=== PATIENT | female | born 1990 | race Caucasian/White ===

== ENCOUNTER 2023-03-23 18:01 | Inpatient (IN) | payer OTHER, SELFPAY ==
[2023-03-23 18:05] VITALS: BP 120/66; PULSE 84; RESP 20; TEMP 36.9; O2SAT 98; BMI 59.9
[2023-03-23 18:18] VITALS: BP 118/63; PULSE 85; RESP 20; TEMP 36.9; O2SAT 99
--- NOTE | 2023-03-23 18:23 | EX.ED.DYSGE1 ---
HPI History of Present Illness Chief Complaint: Cellulitis Detail of Chief Complaint: Abdomen cellulitis Informant: patient Onset/Context/Timing Onset: Yesterday Context: Sudden Onset Timing: Continuous Quality: Erythematous rash Location: Inferior umbilicus to the pubic symphysis Current Severity: Moderate Maximum Severity: Moderate Worsened by: Nothing Relieved by: Nothing Associated Symptoms Associated Symptoms: Subjective fever with chills Narrative Narrative: Is a 33-year-old female with no significant past medical history presents with cellulitis of the abdomen. This started yesterday. She complains of subjective fever with chills. She denies history medic fever, heart murmur, mitral valve prolapse and is not immune suppressed. She is on no dedication. She has no allergies to antibiotics. She denies nausea, vomiting or diarrhea. She denies dysuria, frequency, urgency or hematuria. She denies respiratory or cardiac symptoms. Prior similar symptoms: No Recent Illness/Hospitalization: No PFSH PFSH Medical History Morbid obesity due to excess calories Medical History no medical history no medical history Home Medications NK 03/23/23 [History Last Taken Unknown] Allergy/AdvReac Type Severity Reaction Status Date / Time No Known Allergies Allergy Verified 03/23/23 18:45 Family History no significant family his Surgical History H/O hernia repair Surgical History no surgical history no surgical history Social History household members: spouse and children Smoking Status: Never smoker substance use type: does not use ROS ROS ED Constitutional Constitutional ED: Reports chills, fever(s) and subjective; Denies sweats or weight loss Eyes Eyes: Denies blurry vision, change in vision or diplopia ENT ENT ED: Denies ear pain, rhinorrhea or sore throat Cardiovascular Cardiovascular: Denies chest pain, orthopnea, palpitations or racing heartbeat Respiratory/Chest Respiratory/Chest: Denies cough, dyspnea, dyspnea on exertion or orthopnea Gastrointestinal Gastrointestinal: Denies abdominal pain, constipation, diarrhea, melena, nausea or vomiting Genitourinary Genitourinary ED: Denies dysuria, hematuria or urinary frequency Musculoskeletal Musculoskeletal: Denies arthralgias or myalgias Integumentary Reports rash; Denies abscess Neurologic Neurologic: Denies headache(s), paresthesias or weakness Hematologic/Lymphatic Hematologic/Lymphatic: Reports systems reviewed and no addt'l complaints, except as documented Allergic/Immunologic Allergic/Immunologic ED: Denies mouth swelling or tongue swelling EXAM Physical Exam Const Vital Signs: 03/23/23 18:05 03/23/23 18:05 03/23/23 18:18 Temperature 98.5 F 98.5 F 98.5 F Temperature Source Temporal Temporal Temporal Pulse Rate 84 84 85 Respiratory Rate 20 H 20 H 20 H Blood Pressure 120/66 120/66 118/63 Blood Pressure Mean 84 84 81 Pulse Ox 98 98 99 Oxygen Delivery Method Room Air Room Air Room Air 03/23/23 18:28 03/23/23 19:14 03/23/23 19:14 Temperature 101.1 F H 101.1 F H Temperature Source Oral Oral Pulse Rate 84 90 Respiratory Rate 35 H 28 H Blood Pressure 128/69 H 130/70 H Blood Pressure Mean 88 90 Pulse Ox 99 100 100 Oxygen Delivery Method Room Air Room Air Room Air Positive well nourished, well developed and obese General Appearance ED: well developed and NAD; Negative for cyanotic or diaphoretic Nutritional Appearance: obese HEENT Reports moist mucous membranes HEENT Narrative: Head is normocephalic and atraumatic. Ears are normal. Nares are patent. Posterior pharynx is normal. Eyes PERRL and EOMs intact bilaterally General Eye ED: Negative for pale conjunctiva or scleral icterus Neck no lymphadenopathy, supple and no JVD Neck Narrative: There is no cervical lymphadenopathy. Chest Wall inspection of chest normal Resp normal respiratory effort and clear to auscultation bilaterally Cardio regular rate, regular rhythm, S1 normal heart sound, S2 normal heart sound and no murmurs GI non-distended and no masses; Negative for normal to inspection, nondistended, normoactive bowel sounds, non-tender or hepatosplenomegaly GI Narrative: There is tenderness over the indurated area. There is no crepitus appreciated. The rash is erythematous and is extensive. Rash was outlined with marker pen. Back/Spine no CVA tenderness Thoracic Spine / Upper Back: Negative for thoracic spinal tenderness Extremity normal to inspection General Extremety ED: Negative for tenderness Neuro oriented x3, CN's II-XII intact bilaterally and no sensory deficits noted Sensorium / Orientation: alert Motor Exam: strength 5/5 throughout Psych mental status grossly normal Skin Skin Narrative: LymphThis involving the inferior portion of the abdomen with induration, erythema gyrus. There is no inguinal lymphadenopathy. MDM MDM MDM Narrative Medical decision making narrative: Cellulitis of the abdominal wall. Patient may have sepsis. Sepsis work-up was undertaken. Since she has no antibiotic allergies she was started on Unasyn. Patient is tachypneic febrile with source. She has sepsis without endorgan dysfunction. We will contact hospitalist for admission. Lab Data Attestation: I reviewed the patient's lab results. Lab results narrative: White count is upper end of normal. There is slight shift. H&H is under markable. PT PTT are slightly did. Comprehensive metabolic panel is unremarkable. Lactate is normal. Labs: Laboratory Results - last 24 hr 03/23/23 03/23/23 18:35 19:45 WBC 10.1 RBC 4.66 Hgb 12.6 Hct 39.3 MCV 84.3 MCH 27.0 MCHC 32.1 RDW Std Deviation 44.0 H RDW Coeff of Ankita 14.4 Plt Count 180 MPV 10.0 Immature Gran % (Auto) 0.500 Neut % (Auto) 73.8 H Lymph % (Auto) 15.0 L [place] % (Auto) 9.4 Eos % (Auto) 0.7 Baso % (Auto) 0.6 Absolute Neuts (auto) 7.4 Absolute Lymphs (auto) 1.51 Nucleated RBC % 0 PT 15.2 H INR 1.2 APTT 39.3 H Sodium 138 Potassium 3.6 Chloride 107 Carbon Dioxide 27.0 Anion Gap 4 L BUN 10 Creatinine 0.86 Estim Creat Clear Calc 79.59 Est GFR (MDRD) Af Amer 98 Est GFR (MDRD) Non-Af 81 BUN/Creatinine Ratio 11.7 Glucose 100 Lactic Acid 1.0 Calcium 8.9 Total Bilirubin 0.70 AST 18 ALT 26 Alkaline Phosphatase 60 Total Protein 7.2 Albumin 3.1 L Globulin 4.1 Albumin/Globulin Ratio 0.8 L Urine Color Yellow Urine Clarity Clear Urine pH 7.0 Ur Specific [place] 1.015 Urine Protein 30 H Urine Glucose (UA) Normal Urine Ketones 15 H Urine Occult Blood 25 H Urine Nitrite Negative Urine Bilirubin Negative Urine Urobilinogen Normal Ur Leukocyte Esterase Negative Urine RBC 0 SEEN Urine WBC 0 SEEN Ur Squamous Epith Cells 0-5 SEEN Urine Bacteria RARE Urine Mucus 0 SEEN Urine Yeast RARE Treatment and Re-Evaluation :: Harmed by the nurse at 1915 the patient had shaking chills and complained of fever. Repeat temperature is 101.1. Discharge Plan Dx/Rx/DC Orders Clinical Impression: Abdominal wall cellulitis, Sepsis without acute organ dysfunction Disposition Disposition: Acute Care Hospital [facility]
[2023-03-23 18:28] VITALS: O2SAT 99
[2023-03-23 18:51] LABS: Absolute Lymphocyte Count 1.51 X10^3/uL (0.83-4.51); Absolute Neutrophil Count 7.4 X10^3/uL (2.0-7.7); Basophil# 0.06 X10^3/uL; Basophil% 0.6 % (0-1); Eosinophil# 0.07 X10^3/uL; Eosinophils% 0.7 % (0-5); Hematocrit 39.3 % (37-47); Hemoglobin 12.6 g/dL (12.0-15.0); Lymphocyte # 1.51 X10^3/ul (0.83-4.51); Mean Corp Hgb Conc 32.1 g/dL (32-36); Mean Corpuscular Volume 84.3 fL (81-99); Monocyte# 0.95 X10^3/uL; Monocyte% 9.4 % (0-10); NRBC Flagged by Analyzer 0 % (0-5); Neutrophil # 7.43 X10^3/uL (2.7-7.7); Neutrophil % 73.8 % (47-70); Platelet Count 180 K/mm3 (150-450); RBC Distribution Width CV 14.4 % (11.6-14.6); Red Blood Count 4.66 M/mm3 (4.2-5.4); White Blood Count 10.1 K/mm3 (4.4-11.0)
[2023-03-23] MEDS: 0.9% Normal Saline (1000mL) 1,000 ML 250 ML IV (18:58)
[2023-03-23] MEDS: Ampicillin/Sulbactam 3 GM in 0.9% Normal Saline (100mL MB+) 100 ML IV ×2 (18:58→23:41)
[2023-03-23 19:01] LABS: International Normalized Ratio 1.2; Prothrombin Time (Protime)PT. 15.2 SECONDS (11.7-14.9)
[2023-03-23 19:02] LABS: Partial Thromboplast Time 39.3 Seconds (24.1-36.2)
[2023-03-23] MEDS: Acetaminophen 325 MG Tablet 650 MG PO ×2 (19:12→23:40)
[2023-03-23 19:13] LABS: ALB/GLOB Ratio 0.8 RATIO (0.9-2.4); AST(SGOT) 18 U/L (15-37); Alanine Aminotransfer ALT/SGPT 26 U/L (13-56); Albumin, Serum 3.1 g/dL (3.2-5.0); Alkaline Phosphatase 60 U/L (45-117); Anion Gap 4 (5-15); BUN 10 mg/dL (7-18); BUN/Creat Ratio 11.7 RATIO (10-20); Calcium,Total 8.9 mg/dL (8.5-10.1); Chloride 107 mmol/L (98-107); Creatinine, Serum 0.86 mg/dL (0.55-1.02); EST Glomerular Filtration Rate 81 mL/min (>60); Est Glom Filt Rate - Afr Amer 98 mL/min (>60); Estimated Creatinine Clearance 79.59 ml/min; Globulin 4.1 g/dL (2.2-4.2); Glucose 100 mg/dL (74-106); Potassium 3.6 mmol/L (3.5-5.1); Protein, Total 7.2 g/dL (6.4-8.2); Sodium Level 138 mmol/L (136-145)
[2023-03-23 19:14] VITALS: BP 128/69; BP 130/70; PULSE 84; PULSE 90; RESP 28; RESP 35; TEMP 38.4; O2SAT 100
[2023-03-23 19:52] LABS: Color, Urine Yellow (Yellow); Glucose, Dipstick Normal (Normal); Ketone-Dipstick 15 mg/dl (Negative); Leukocyte Esterase-Dipstick Negative /ul (Negative); Mucous, Urine 0 SEEN /hpf (<or=2+); Nitrite-Dipstick Negative (Negative); Occult Blood-Urine 25 /ul (Negative); Protein-Dipstick 30 mg/dl (Negative); Red Blood Cells-Urine 0 SEEN /hpf (0-5); Specific Gravity, Urine 1.015 (1.002-1.030); Urine Bilirubin Dipstick Negative (Negative); Urine Clarity Clear (Clear); Urine Urobilinogen Normal (Normal); White Blood Cells 0 SEEN /hpf (0-5)
--- NOTE | 2023-03-23 20:04 | HP.PCM.HOS_ITS ---
HPI - General General Date of Admission: 03/23/23 Date of Service: 03/23/23 Chief Complaint: Lower abdomen redness HPI Narrative EMA TOWNSEND, is a 33 F with a significant history of morbid obesity who presents to the emergency department with erythema of her lower abdomen. Her symptoms started 2 days before presentation. Her symptoms started with chills and tenderness of the lower abdomen. Later on she developed erythema of the same site. She had a fever up with home temperature of about 101.6 Fahrenheit. She has anorexia. FORMERLY [facility], 1928–1983 Medical History delivery delivered Morbid obesity due to excess calories Medical History no medical history Home Medications NK 03/23/23 [History Last Taken Unknown] Allergy/AdvReac Type Severity Reaction Status Date / Time No Known Allergies Allergy Verified 03/23/23 18:45 Family History other other (Denies knowledge of family medical history) Surgical History H/O hernia repair Surgical History no surgical history Social History household members: spouse and children Smoking Status: Never smoker substance use type: does not use ROS ROS Narrative Pertinent positives and pertinent negatives as noted in HPI. All other systems were reviewed and are negative Vital Signs Vital Signs Vital Signs: 03/23/23 18:05 03/23/23 18:05 03/23/23 18:18 Temperature 98.5 F 98.5 F 98.5 F Temperature Source Temporal Temporal Temporal Pulse Rate 84 84 85 Respiratory Rate 20 H 20 H 20 H Blood Pressure 120/66 120/66 118/63 Blood Pressure Mean 84 84 81 Pulse Ox 98 98 99 Oxygen Delivery Method Room Air Room Air Room Air 03/23/23 18:28 03/23/23 19:14 03/23/23 19:14 Temperature 101.1 F H 101.1 F H Temperature Source Oral Oral Pulse Rate 84 90 Respiratory Rate 35 H 28 H Blood Pressure 128/69 H 130/70 H Blood Pressure Mean 88 90 Pulse Ox 99 100 100 Oxygen Delivery Method Room Air Room Air Room Air Weight Weight: 158.304 kg Body Mass Index (BMI) 59.9 Physical Exam Narrative Physical exam: General: Morbidly obese Head: Normocephalic, atraumatic, no tenderness Eyes: Vision is grossly intact. EOMI ENT, no trauma, moist mucous membranes, no rhinorrhea Neck: Nontender, No thyromegaly. CVS: Regular rate and rhythm. S1-S2 present. No murmur, gallop or rub. Respiratory : clear to auscultation bilaterally, chest wall nontender Abdomen: Erythema of lower abdomen with induration, tender lower abdomen. normal bowel sounds : Deferred Back: Nontender, no CVA tenderness, no midline spinal tenderness, deformities, step-offs Extremities: Nontender full range of motion, no trauma Skin: Normal color; except lower abdomen as described above. Neuro: Alert, oriented, cranial nerves II through XII grossly intact. Psychiatry: Normal mood. Normal affect. Not depressed. Not anxious. Results Lab / Micro Data Attestation: I reviewed the patient's lab results. 03/24/23 06:18 03/24/23 06:18 Labs: Laboratory Results - last 24 hr 03/23/23 18:35: WBC 10.1, RBC 4.66, Hgb 12.6, Hct 39.3, MCV 84.3, MCH 27.0, MCHC 32.1, RDW Std Deviation 44.0 H, RDW Coeff of Ankita 14.4, Plt Count 180, MPV 10.0, Immature Gran % (Auto) 0.500, Neut % (Auto) 73.8 H, Lymph % (Auto) 15.0 L, [place] % (Auto) 9.4, Eos % (Auto) 0.7, Baso % (Auto) 0.6, Absolute Neuts (auto) 7.4, Absolute Lymphs (auto) 1.51, Nucleated RBC % 0, PT 15.2 H, INR 1.2, APTT 39.3 H, Sodium 138, Potassium 3.6, Chloride 107, Carbon Dioxide 27.0, Anion Gap 4 L, BUN 10, Creatinine 0.86, Estim Creat Clear Calc 79.59, Est GFR (MDRD) Af Amer 98, Est GFR (MDRD) Non-Af 81, BUN/Creatinine Ratio 11.7, Glucose 100, Lactic Acid 1.0, Calcium 8.9, Total Bilirubin 0.70, AST 18, ALT 26, Alkaline Phosphatase 60, Total Protein 7.2, Albumin 3.1 L, Globulin 4.1, Albumin/Globulin Ratio 0.8 L Assessment & Plan Assessment/Plan (1) Abdominal wall cellulitis: (2) Morbid obesity due to excess calories: PLAN: Plan Abdominal wall cellulitis CBC showed normal white counts Started on Unasyn in the emergency department and continued. BMI: 58 3 kg/m?. Complicates care. Lifestyle modification recommended. Time spent in the patient's overall evaluation,decision-making process, review of diagnostic data, adjustment of management, discussion with other providers, nursing nursing and ancillary staff involved in patient's care documentation, 40 minutes. DVT prophylaxis Subcutaneous Lovenox ordered. Charges/Coding Visit Charges Inpatient E&M: 81895 Init Hosp L2
[2023-03-23 20:17] VITALS: BP 130/69; PULSE 84; PULSE 90; RESP 25; TEMP 37.7; O2SAT 97
[2023-03-23 20:37] LABS: Bacteria RARE /hpf (None Seen); Squamous Epithelial Cells - UA 0-5 SEEN /hpf (5-10); Yeast-Urine RARE /hpf (None Seen)
[2023-03-23 21:23] VITALS: BP 121/63; PULSE 83; RESP 18; TEMP 37.7; O2SAT 99
[2023-03-23 21:30] VITALS: BMI 58.3
[2023-03-23] MEDS: 0.9% Normal Saline (1000mL) 1,000 ML 100 ML IV (22:31)
[2023-03-23] MEDS: Enoxaparin 40 MG/0.4 ML Syringe SC (23:41)
[2023-03-23] MEDS: MELATONIN 3 MG TABLET PO (23:41)
[2023-03-24 03:03] VITALS: BP 122/71; PULSE 78; RESP 18; TEMP 37.7; O2SAT 97
[2023-03-24] MEDS: 0.9% Normal Saline (1000mL) 1,000 ML 100 ML IV ×3 (03:09→17:27)
[2023-03-24] MEDS: Acetaminophen 325 MG Tablet 650 MG PO (05:52)
[2023-03-24] MEDS: Ampicillin/Sulbactam 3 GM in 0.9% Normal Saline (100mL MB+) 100 ML IV ×4 (05:53→23:01)
[2023-03-24 05:55] VITALS: TEMP 37.4
[2023-03-24 07:04] LABS: Absolute Lymphocyte Count 1.89 X10^3/uL (0.83-4.51); Absolute Neutrophil Count 6.6 X10^3/uL (2.0-7.7); Basophil# 0.03 X10^3/uL; Basophil% 0.3 % (0-1); Eosinophil# 0.09 X10^3/uL; Eosinophils% 0.9 % (0-5); Hematocrit 35.6 % (37-47); Hemoglobin 11.3 g/dL (12.0-15.0); Lymphocyte # 1.89 X10^3/ul (0.83-4.51); Lymphocyte % 19.4 % (19-41); Mean Corp Hgb Conc 31.7 g/dL (32-36); Mean Corpuscular Hgb 26.8 pg (27.0-32.0); Mean Corpuscular Volume 84.4 fL (81-99); Mean Platelet Vol. 10.2 fl (6.2-12.0); Monocyte# 1.06 X10^3/uL; Monocyte% 10.9 % (0-10); NRBC Flagged by Analyzer 0 % (0-5); Neutrophil # 6.64 X10^3/uL (2.7-7.7); Neutrophil % 68.1 % (47-70); Platelet Count 175 K/mm3 (150-450); RBC Distribution Width CV 14.5 % (11.6-14.6); RBC Distribution Width SD 44.5 fl (35.1-43.9); Red Blood Count 4.22 M/mm3 (4.2-5.4); White Blood Count 9.8 K/mm3 (4.4-11.0)
[2023-03-24 07:38] LABS: Anion Gap 7 (5-15); BUN 10 mg/dL (7-18); BUN/Creat Ratio 15.7 RATIO (10-20); Calcium,Total 8.2 mg/dL (8.5-10.1); Chloride 109 mmol/L (98-107); Creatinine, Serum 0.64 mg/dL (0.55-1.02); EST Glomerular Filtration Rate 114 mL/min (>60); Est Glom Filt Rate - Afr Amer 137 mL/min (>60); Estimated Creatinine Clearance 106.95 ml/min; Glucose 83 mg/dL (74-106); Potassium 3.7 mmol/L (3.5-5.1); Sodium Level 138 mmol/L (136-145)
--- NOTE | 2023-03-24 07:53 | PCM.PN.HOSP ---
Reason for Visit Reason for Visit: Abdominal wall cellulitis Subjective Subjective Patient is a 33-year-old female who presented with warmth redness involving the lower abdomen as well as fever and chills. An assessment of anterior abdominal wall cellulitis made admitted to regular nursing floor for further management Objective Data Objective Data Vital Signs: Vital Signs Temp Pulse Resp BP Pulse Ox O2 Del Method 99.3 F H 78 18 122/71 H 97 Room Air 03/24/23 05:55 03/24/23 03:03 03/24/23 03:03 03/24/23 03:03 03/24/23 03:03 03/24/23 03:05 Oxygen Delivery Method Room Air Weight: 155 kg Body Mass Index (BMI) 58.3 Intake & Output: Intake and Output for Last 24 Hours 03/22/23 03/23/23 03/24/23 23:59 23:59 23:59 Intake Total 1032.83 / 1032.83 1317.33 / 1317.33 Balance 1032.83 / 1032.83 1317.33 / 1317.33 Lab / Micro Data 03/24/23 06:18 03/24/23 06:18 Labs: Laboratory Results - last 24 hr 03/23/23 18:35: WBC 10.1, RBC 4.66, Hgb 12.6, Hct 39.3, MCV 84.3, MCH 27.0, MCHC 32.1, RDW Std Deviation 44.0 H, RDW Coeff of Ankita 14.4, Plt Count 180, MPV 10.0, Immature Gran % (Auto) 0.500, Neut % (Auto) 73.8 H, Lymph % (Auto) 15.0 L, [place] % (Auto) 9.4, Eos % (Auto) 0.7, Baso % (Auto) 0.6, Absolute Neuts (auto) 7.4, Absolute Lymphs (auto) 1.51, Nucleated RBC % 0, PT 15.2 H, INR 1.2, APTT 39.3 H, Sodium 138, Potassium 3.6, Chloride 107, Carbon Dioxide 27.0, Anion Gap 4 L, BUN 10, Creatinine 0.86, Estim Creat Clear Calc 79.59, Est GFR (MDRD) Af Amer 98, Est GFR (MDRD) Non-Af 81, BUN/Creatinine Ratio 11.7, Glucose 100, Lactic Acid 1.0, Calcium 8.9, Total Bilirubin 0.70, AST 18, ALT 26, Alkaline Phosphatase 60, Total Protein 7.2, Albumin 3.1 L, Globulin 4.1, Albumin/Globulin Ratio 0.8 L 03/23/23 19:45: Urine Color Yellow, Urine Clarity Clear, Urine pH 7.0, Ur Specific [place] 1.015, Urine Protein 30 H, Urine Glucose (UA) Normal, Urine Ketones 15 H, Urine Occult Blood 25 H, Urine Nitrite Negative, Urine Bilirubin Negative, Urine Urobilinogen Normal, Ur Leukocyte Esterase Negative, Urine RBC 0 SEEN, Urine WBC 0 SEEN, Ur Squamous Epith Cells 0-5 SEEN, Urine Bacteria RARE, Urine Mucus 0 SEEN, Urine Yeast RARE 03/24/23 06:18: WBC 9.8, RBC 4.22, Hgb 11.3 L, Hct 35.6 L, MCV 84.4, MCH 26.8 L, MCHC 31.7 L, RDW Std Deviation 44.5 H, RDW Coeff of Ankita 14.5, Plt Count 175, MPV 10.2, Immature Gran % (Auto) 0.400, Neut % (Auto) 68.1, Lymph % (Auto) 19.4, [place] % (Auto) 10.9 H, Eos % (Auto) 0.9, Baso % (Auto) 0.3, Absolute Neuts (auto) 6.6, Absolute Lymphs (auto) 1.89, Nucleated RBC % 0, Sodium 138, Potassium 3.7, Chloride 109 H, Carbon Dioxide 22.0, Anion Gap 7, BUN 10, Creatinine 0.64, Estim Creat Clear Calc 106.95, Est GFR (MDRD) Af Amer 137, Est GFR (MDRD) Non-Af 114, BUN/Creatinine Ratio 15.7, Glucose 83, Calcium 8.2 L Physical Exam Narrative GENERAL: cooperative HEENT: Atraumatic; normocephalic EYES; Anicteric, Normal Conjunctiva NECK; supple, normal thyroid, RESPIRATORY: Diminished to auscultation CARDIOVASCULAR: Regular S1 S2, GI: soft, normoactive bowel sounds, : No Renal angle tenderness; EXTREMITIES: No edema, no clubbing, MUSCULOSKELETAL: no muscle wasting NEURO: Awake; no lateralizing signs. SKIN: An area of erythema and warmth involving the lower abdomen from the umbilicus to the pubic region with an open area below the umbilicus PSYCH; Flat affect Assessment & Plan Assessment/Plan (1) Abdominal wall cellulitis: (2) Morbid obesity due to excess calories: PLAN: Plan Patient is a 33-year-old female who presented with warmth redness involving the lower abdomen as well as fever and chills. An assessment of anterior abdominal wall cellulitis made admitted to regular nursing floor for further management 1. Anterior abdominal wall cellulitis ? Patient started on Unasyn, added vancomycin blood cultures sent 2. Class III obesity with BMI of 50.3 ? Complicating care 3. DVT prophylaxis ? SC Lovenox dose adjusted for weight Time spent in the patient's overall evaluation,decision-making process, review of diagnostic data, adjustment of management, discussion with other providers, nursing nursing and ancillary staff involved in patient's care documentation,50 Minutes Charges/Coding Visit Charges Inpatient E&M: 68076 [place] [address]
[2023-03-24 10:48] VITALS: BP 102/54; PULSE 75; RESP 18; TEMP 37.3; O2SAT 98
[2023-03-24] MEDS: Enoxaparin 40 MG/0.4 ML Syringe SC ×2 (11:26→23:01)
--- NOTE | 2023-03-24 11:43 | CASEMGMT ---
ELIECER GILLIS Assessment: Face to Face with pt for initial transition planning/care coordination assessment. RN ELIS introduced self and role at [facility], pt voices understanding and consents to assessment. Pt is A&O x4 and answers all questions appropriately at this time. Pt sitting up in bed eating lunch with and children at bedside. Care providers, pharmacy, and demographics verified/updated. Admitting Dx: cellulitis, abd wall PCP:Kristin Specialists: denies Preferred Pharmacy: [facility] Retail Insurance: [employer] Prescription Benefit: no LNOK: Beck Brooks, Living Arrangements: Pt lives with and 3 children in a two story home with 6 steps to enter. Pt reports she is I in ADL's and denies concerns at home. Transportation: Pt hires drivers for transportation. DME:Denies HHC/SNF: Pt denies hx of Pt states no concerns with going home at time of dc. Pt states no further concerns/needs. CM to follow. Advised pt to ask CM if any further question/concerns/needs arise, voices understanding. Pt Goal: Home Plan: Home
[2023-03-24 12:00] VITALS: O2SAT 93
[2023-03-24] MEDS: Vancomycin HCl 2,000 MG in 0.9% Normal Saline (500mL Bag) 500 ML 250 MG IV (13:12)
[2023-03-24] MEDS: Acetaminophen 500 MG Tablet 1000 MG PO ×2 (13:12→23:00)
[2023-03-24 16:37] VITALS: BP 106/50; PULSE 54; RESP 18; TEMP 37.6; O2SAT 94
--- NOTE | 2023-03-24 16:40 | PCM.RX.CS ---
Consult Antibiotic Management Pharmacy has been consulted to manage selected antiobiotic: Vancomycin Type of Intervention Type of Consult: New start Suspected Infection Suspected Infection: Skin/Soft tissue Labs Labs: Sodium 138 mmol/L (136-145) 03/24/23 06:18 Potassium 3.7 mmol/L (3.5-5.1) 03/24/23 06:18 Chloride 109 mmol/L (98-107) H 03/24/23 06:18 Carbon Dioxide 22.0 mmol/L (21.0-32.0) 03/24/23 06:18 Anion Gap 7 (5-15) 03/24/23 06:18 BUN 10 mg/dL (7-18) 03/24/23 06:18 Creatinine 0.64 mg/dL (0.55-1.02) 03/24/23 06:18 Est GFR (MDRD) Af Amer 137 mL/min (>60) 03/24/23 06:18 Est GFR (MDRD) Non-Af 114 mL/min (>60) 03/24/23 06:18 BUN/Creatinine Ratio 15.7 RATIO (10-20) 03/24/23 06:18 Glucose 83 mg/dL (74-106) 03/24/23 06:18 Goal Trough Goal Trough: 10-15 mcg/mL Pharmacy Plan for Drug Dosing Pharmacy Plan for Drug Dosing: NEW START IV VANCOMYCIN Consulting Physician: Dr. Gomez Indication: SSTI (cellulitis) Goal Trough: 10-15 SrCr: 0.64 CrCl: >100 ml/min Comments: patient had initial dose of vancomycin 2000mg IV x1 03/24 @1312 Vancomycin Dose: 1750mg IV Q12hr to start 03/25/23 @0100 Pending Level: 03/26/23 @0030, prior to 4th total dose vancomycin per protocol Pharmacy Service will continue to monitor and adjust dosing as required.
[2023-03-24 19:50] VITALS: BP 104/52; PULSE 73; RESP 18; TEMP 37.1; O2SAT 99
[2023-03-25] MEDS: Vancomycin HCl 1,750 MG in 0.9% Normal Saline (500mL Bag) 500 ML 250 MG IV ×2 (01:53→14:57)
[2023-03-25 02:01] VITALS: BP 106/57; PULSE 66; RESP 18; TEMP 36.7; O2SAT 99
[2023-03-25] MEDS: Ampicillin/Sulbactam 3 GM in 0.9% Normal Saline (100mL MB+) 100 ML IV ×4 (06:29→23:18)
[2023-03-25] MEDS: Acetaminophen 500 MG Tablet 1000 MG PO (06:29)
[2023-03-25] MEDS: 0.9% Normal Saline (1000mL) 1,000 ML 100 ML IV ×2 (06:32→23:19)
[2023-03-25 07:17] LABS: Absolute Lymphocyte Count 1.88 X10^3/uL (0.83-4.51); Absolute Neutrophil Count 4.1 X10^3/uL (2.0-7.7); Basophil# 0.03 X10^3/uL; Basophil% 0.4 % (0-1); Eosinophil# 0.18 X10^3/uL; Eosinophils% 2.6 % (0-5); Hematocrit 34.7 % (37-47); Hemoglobin 11.1 g/dL (12.0-15.0); Lymphocyte # 1.88 X10^3/ul (0.83-4.51); Lymphocyte % 27.6 % (19-41); Mean Corpuscular Hgb 27.3 pg (27.0-32.0); Mean Corpuscular Volume 85.3 fL (81-99); Mean Platelet Vol. 10.2 fl (6.2-12.0); Monocyte# 0.67 X10^3/uL; Monocyte% 9.8 % (0-10); NRBC Flagged by Analyzer 0 % (0-5); Neutrophil # 4.05 X10^3/uL (2.7-7.7); Neutrophil % 59.5 % (47-70); Platelet Count 189 K/mm3 (150-450); RBC Distribution Width CV 14.6 % (11.6-14.6); RBC Distribution Width SD 45.2 fl (35.1-43.9); Red Blood Count 4.07 M/mm3 (4.2-5.4); White Blood Count 6.8 K/mm3 (4.4-11.0)
[2023-03-25 07:38] LABS: Anion Gap 5 (5-15); BUN 10 mg/dL (7-18); BUN/Creat Ratio 18.9 RATIO (10-20); Calcium,Total 8.1 mg/dL (8.5-10.1); Chloride 113 mmol/L (98-107); Creatinine, Serum 0.53 mg/dL (0.55-1.02); EST Glomerular Filtration Rate 141 mL/min (>60); Est Glom Filt Rate - Afr Amer 170 mL/min (>60); Estimated Creatinine Clearance 129.15 ml/min; Glucose 89 mg/dL (74-106); Magnesium 2.2 mg/dL (1.6-2.6); Phosphorus 2.3 mg/dL (2.5-4.9); Potassium 3.7 mmol/L (3.5-5.1); Sodium Level 141 mmol/L (136-145)
[2023-03-25 07:41] VITALS: O2SAT 96
--- NOTE | 2023-03-25 07:45 | PCM.PN.HOSP ---
Reason for Visit Reason for Visit: Diagnoses Morbid (severe) obesity due to excess calories (03/23/23) Cellulitis of abdominal wall (03/23/23) Subjective Subjective Patient admitted some improvement in the area of induration. Objective Data Objective Data Vital Signs: Vital Signs Temp Pulse Resp BP Pulse Ox O2 Del Method 98.1 F 66 18 106/57 L 99 Room Air 03/25/23 02:01 03/25/23 02:01 03/25/23 02:01 03/25/23 02:01 03/25/23 02:01 03/25/23 02:01 Oxygen Delivery Method Room Air Weight: 155 kg Body Mass Index (BMI) 58.3 Intake & Output: Intake and Output for Last 24 Hours 03/23/23 03/24/23 03/25/23 23:59 23:59 23:59 Intake Total 1032.83 / 1032.83 3241.33 / 3241.33 1637 / 1637 Balance 1032.83 / 1032.83 3241.33 / 3241.33 1637 / 1637 Lab / Micro Data 03/25/23 06:24 03/25/23 06:24 Labs: Laboratory Results - last 24 hr 03/25/23 06:24: WBC 6.8, RBC 4.07 L, Hgb 11.1 L, Hct 34.7 L, MCV 85.3, MCH 27.3, MCHC 32.0, RDW Std Deviation 45.2 H, RDW Coeff of Ankita 14.6, Plt Count 189, MPV 10.2, Immature Gran % (Auto) 0.100, Neut % (Auto) 59.5, Lymph % (Auto) 27.6, [place] % (Auto) 9.8, Eos % (Auto) 2.6, Baso % (Auto) 0.4, Absolute Neuts (auto) 4.1, Absolute Lymphs (auto) 1.88, Nucleated RBC % 0, Sodium 141, Potassium 3.7, Chloride 113 H, Carbon Dioxide 23.0, Anion Gap 5, BUN 10, Creatinine 0.53 L, Estim Creat Clear Calc 129.15, Est GFR (MDRD) Af Amer 170, Est GFR (MDRD) Non-Af 141, BUN/Creatinine Ratio 18.9, Glucose 89, Calcium 8.1 L, Phosphorus 2.3 L, Magnesium 2.2 Physical Exam Narrative GENERAL: cooperative HEENT: Atraumatic; normocephalic EYES; Anicteric, Normal Conjunctiva NECK; supple, normal thyroid, RESPIRATORY: Diminished to auscultation CARDIOVASCULAR: Regular S1 S2, GI: soft, normoactive bowel sounds, : No Renal angle tenderness; EXTREMITIES: No edema, no clubbing, MUSCULOSKELETAL: no muscle wasting NEURO: Awake; no lateralizing signs. SKIN: An area of erythema and warmth involving the lower abdomen from the umbilicus to the pubic region with an open area below the umbilicus PSYCH; Flat affect Assessment & Plan Assessment/Plan (1) Abdominal wall cellulitis: (2) Morbid obesity due to excess calories: PLAN: Plan Patient is a 33-year-old female who presented with warmth redness involving the lower abdomen as well as fever and chills. An assessment of anterior abdominal wall cellulitis made admitted to regular nursing floor for further management 1. Anterior abdominal wall cellulitis ? Patient started on Unasyn, added vancomycin blood cultures sent ? 03/25/2023 slow response to therapy 2. Class III obesity with BMI of 50.3 ? Complicating care 3. DVT prophylaxis ? SC Lovenox dose adjusted for weight Time spent in the patient's overall evaluation,decision-making process, review of diagnostic data, adjustment of management, discussion with other providers, nursing nursing and ancillary staff involved in patient's care documentation, 35 minutes Charges/Coding Visit Charges Inpatient E&M: 88594 Subs Hosp L2
[2023-03-25] MEDS: Enoxaparin 40 MG/0.4 ML Syringe SC (11:19)
[2023-03-25 15:45] VITALS: BP 124/66; PULSE 73; RESP 16; TEMP 37.1; O2SAT 99
[2023-03-25 20:04] VITALS: BP 132/80; PULSE 74; RESP 18; TEMP 36.9; O2SAT 99
--- NOTE | 2023-03-26 01:27 | PCM.RX.CS ---
Consult Antibiotic Management Pharmacy has been consulted to manage selected antiobiotic: Vancomycin Type of Intervention Type of Consult: Follow-up Suspected Infection Suspected Infection: Skin/Soft tissue Labs Labs: Sodium 141 mmol/L (136-145) 03/25/23 06:24 Potassium 3.7 mmol/L (3.5-5.1) 03/25/23 06:24 Chloride 113 mmol/L (98-107) H 03/25/23 06:24 Carbon Dioxide 23.0 mmol/L (21.0-32.0) 03/25/23 06:24 Anion Gap 5 (5-15) 03/25/23 06:24 BUN 10 mg/dL (7-18) 03/25/23 06:24 Creatinine 0.53 mg/dL (0.55-1.02) L 03/25/23 06:24 Est GFR (MDRD) Af Amer 170 mL/min (>60) 03/25/23 06:24 Est GFR (MDRD) Non-Af 141 mL/min (>60) 03/25/23 06:24 BUN/Creatinine Ratio 18.9 RATIO (10-20) 03/25/23 06:24 Glucose 89 mg/dL (74-106) 03/25/23 06:24 Vancomycin Trough 10.0 ug/mL (5.0-15.0) 03/26/23 00:37 Dosing Weight Weight used for dosin kg Estimated Creatinine Clearance Estimated Creatinine Clearance: >100 Goal Trough Goal Trough: 10-15 mcg/mL Pharmacy Plan for Drug Dosing Pharmacy Plan for Drug Dosing: Vancomycin trough level of 10.0 was within target range of 10-15. Will continue dosing at 1750mg q12h, and re-draw a trough level in two days. Pharmacy Service will continue to monitor and adjust dosing as required. Follow-Up Labs Follow-Up Labs: Trough: Vancomycin Date/Time Labs Ordered Labs to be done on [date and time ordered]: 03/28/23 @0030
[2023-03-26] MEDS: Vancomycin HCl 1,750 MG in 0.9% Normal Saline (500mL Bag) 500 ML 250 MG IV (01:48)
[2023-03-26 01:53] VITALS: BP 123/74; PULSE 66; RESP 18; TEMP 37; O2SAT 98
[2023-03-26] MEDS: Vancomycin Trough/Random Due 1 LAB MC (02:48)
[2023-03-26] MEDS: Ampicillin/Sulbactam 3 GM in 0.9% Normal Saline (100mL MB+) 100 ML IV ×2 (05:40→11:59)
[2023-03-26 06:51] LABS: Absolute Lymphocyte Count 2.02 X10^3/uL (0.83-4.51); Absolute Neutrophil Count 3.9 X10^3/uL (2.0-7.7); Basophil# 0.04 X10^3/uL; Basophil% 0.6 % (0-1); Eosinophil# 0.25 X10^3/uL; Eosinophils% 3.7 % (0-5); Hemoglobin 11.1 g/dL (12.0-15.0); Lymphocyte # 2.02 X10^3/ul (0.83-4.51); Lymphocyte % 29.7 % (19-41); Mean Corp Hgb Conc 31.7 g/dL (32-36); Mean Corpuscular Hgb 27.3 pg (27.0-32.0); Mean Platelet Vol. 9.5 fl (6.2-12.0); Monocyte# 0.61 X10^3/uL; NRBC Flagged by Analyzer 0 % (0-5); Neutrophil # 3.86 X10^3/uL (2.7-7.7); Neutrophil % 56.6 % (47-70); Platelet Count 211 K/mm3 (150-450); RBC Distribution Width CV 14.3 % (11.6-14.6); Red Blood Count 4.07 M/mm3 (4.2-5.4); White Blood Count 6.8 K/mm3 (4.4-11.0)
[2023-03-26 07:18] LABS: Anion Gap 4 (5-15); BUN 11 mg/dL (7-18); BUN/Creat Ratio 16.1 RATIO (10-20); Calcium,Total 8.5 mg/dL (8.5-10.1); Chloride 113 mmol/L (98-107); Creatinine, Serum 0.68 mg/dL (0.55-1.02); EST Glomerular Filtration Rate 104 mL/min (>60); Est Glom Filt Rate - Afr Amer 126 mL/min (>60); Estimated Creatinine Clearance 100.66 ml/min; Glucose 101 mg/dL (74-106); Potassium 4.7 mmol/L (3.5-5.1); Sodium Level 141 mmol/L (136-145)
[2023-03-26 08:13] VITALS: O2SAT 95
[2023-03-26 08:37] VITALS: BP 113/61; PULSE 64; RESP 16; TEMP 36.7; O2SAT 97
--- NOTE | 2023-03-26 09:08 | CT_ITS ---
STUDY: CT ABDOMEN AND PELVIS WITH CONTRAST REASON FOR EXAM: Female, 33 years old. Abdominal wall abscess RADIATION DOSAGE (If Supplied By Facility): CTDIvol = ( 45.59 ) mGy, DLP = ( 2184.48 ) mGycm TECHNIQUE: Oral and amp; IV Gastrografin and amp; 100mL Isovue-300 was administered. Transaxial images were obtained from the dome of the diaphragm to the symphysis pubis. Multiplanar coronal and sagittal images were reformatted. Individualized Dose Optimization Techniques Were Used For This CT. COMPARISON: No relevant prior comparison study available FINDINGS: The visualized lung bases are unremarkable. The visualized portions of the heart are within normal limits. No focal lesion is identified in the liver. Contracted gallbladder without evidence of gallstones. Normal spleen. Normal pancreas. Normal bilateral adrenal glands. Essentially unremarkable kidneys. Anteriorly malrotated right kidney. Normal visualized stomach. Normal in caliber small bowel loops. No evidence of acute diverticulitis. The appendix is visualized and appears normal. Normal abdominal aorta. No retroperitoneal adenopathy. Normal urinary bladder. No pelvic mass. Ventral hernia containing fat. Thickening of the anterior abdominal wall about the level of the umbilicus could be due to umbilical hernia repair. No abnormal fluid collection. No drainable abscess is seen. No demonstrated acute osseous changes. CT/Abdomen/Pelvis WITH Contrast IMPRESSION: 1. Thickening of the anterior abdominal wall above the level of the umbilicus could be due to umbilical hernia repair. Inflammatory or infectious process is possible. No evidence of drainable abscess. 2. Ventral hernia containing fat. 3. Otherwise no focal acute inflammatory process. Electronically Signed: Jose Raul Martins MD at 12:06 EDT ,
--- NOTE | 2023-03-26 10:55 | PCM.PN.HOSP ---
Reason for Visit Reason for Visit: Diagnoses Morbid (severe) obesity due to excess calories (03/23/23) Cellulitis of abdominal wall (03/23/23) Subjective Subjective Patient found to a significant induration involving the lower anterior abdominal wall. Ordered CT to r/o abscess Objective Data Objective Data Vital Signs: Vital Signs Temp Pulse Resp BP Pulse Ox O2 Del Method 98.0 F 64 16 113/61 97 Room Air 03/26/23 08:37 03/26/23 08:37 03/26/23 08:37 03/26/23 08:37 03/26/23 08:37 03/26/23 08:37 Oxygen Delivery Method Room Air Weight: 155 kg Body Mass Index (BMI) 58.3 Intake & Output: Intake and Output for Last 24 Hours 03/24/23 03/25/23 03/26/23 23:59 23:59 23:59 Intake Total 3241.33 / 3241.33 4508 / 4508 1657.33 / 1657.33 Balance 3241.33 / 3241.33 4508 / 4508 1657.33 / 1657.33 Lab / Micro Data 03/26/23 06:30 03/26/23 06:30 Labs: Laboratory Results - last 24 hr 03/26/23 00:37: Vancomycin Trough 10.0 03/26/23 06:30: WBC 6.8, RBC 4.07 L, Hgb 11.1 L, Hct 35.0 L, MCV 86.0, MCH 27.3, MCHC 31.7 L, RDW Std Deviation 45.0 H, RDW Coeff of Ankita 14.3, Plt Count 211, MPV 9.5, Immature Gran % (Auto) 0.400, Neut % (Auto) 56.6, Lymph % (Auto) 29.7, [place] % (Auto) 9.0, Eos % (Auto) 3.7, Baso % (Auto) 0.6, Absolute Neuts (auto) 3.9, Absolute Lymphs (auto) 2.02, Nucleated RBC % 0, Sodium 141, Potassium 4.7, Chloride 113 H, Carbon Dioxide 24.0, Anion Gap 4 L, BUN 11, Creatinine 0.68, Estim Creat Clear Calc 100.66, Est GFR (MDRD) Af Amer 126, Est GFR (MDRD) Non-Af 104, BUN/Creatinine Ratio 16.1, Glucose 101, Calcium 8.5 Micro: Microbiology 03/23/23 18:46 Blood Culture (Wb) - Venous Blood Culture - Preliminary No growth in 48 hours. 03/23/23 18:35 Blood Culture (Wb) - Venous Blood Culture - Preliminary No growth in 48 hours. Physical Exam Narrative GENERAL: cooperative HEENT: Atraumatic; normocephalic EYES; Anicteric, Normal Conjunctiva NECK; supple, normal thyroid, RESPIRATORY: Diminished to auscultation CARDIOVASCULAR: Regular S1 S2, GI: soft, normoactive bowel sounds, : No Renal angle tenderness; EXTREMITIES: No edema, no clubbing, MUSCULOSKELETAL: no muscle wasting NEURO: Awake; no lateralizing signs. SKIN: An area of erythema and warmth involving the lower abdomen from the umbilicus to the pubic region with an open area below the umbilicus PSYCH; Flat affect Assessment & Plan Assessment/Plan (1) Abdominal wall cellulitis: (2) Morbid obesity due to excess calories: PLAN: Plan Patient is a 33-year-old female who presented with warmth redness involving the lower abdomen as well as fever and chills. An assessment of anterior abdominal wall cellulitis made admitted to regular nursing floor for further management 1. Anterior abdominal wall cellulitis ? Patient started on Unasyn, added vancomycin blood cultures sent ? 03/25/2023 slow response to therapy - 03/26/2023; Patient found to a significant induration involving the lower anterior abdominal wall. Ordered CT to r/o abscess 2. Class III obesity with BMI of 50.3 ? Complicating care 3. DVT prophylaxis ? SC Lovenox dose adjusted for weight Time spent in the patient's overall evaluation,decision-making process, review of diagnostic data, adjustment of management, discussion with other providers, nursing nursing and ancillary staff involved in patient's care documentation, 35 minutes Charges/Coding Visit Charges Inpatient E&M: 27052 Subs Hosp L2
[2023-03-26] MEDS: 0.9% Normal Saline (1000mL) 1,000 ML 100 ML IV (11:59)
--- NOTE | 2023-03-26 12:36 | DS.PCM_ITS ---
Providers Date of Admission: 03/23/23 Date of Discharge: 03/26/23 Primary Care Physician: Dr. Jeff Foster, Reason For Visit: CELLULITIS; ABDOMINAL WALL Diagnosis Discharge Diagnosis (1) Abdominal wall cellulitis: Status: Acute Code(s): L03.311 - Cellulitis of abdominal wall (2) Morbid obesity due to excess calories: Status: Acute Code(s): E66.01 - Morbid (severe) obesity due to excess calories Plan Patient is a 33-year-old female who presented with warmth redness involving the lower abdomen as well as fever and chills. An assessment of anterior abdominal wall cellulitis made admitted to regular nursing floor for further management 1. Anterior abdominal wall cellulitis ? Patient started on Unasyn, added vancomycin blood cultures sent ? 03/25/2023 slow response to therapy - 03/26/2023; Patient found to a significant induration involving the lower anterior abdominal wall. Ordered CT to r/o abscess -CT demonstrated thickening of the anterior abdominal wall above the level of the umbilicus could be due to umbilical hernia repair. Inflammatory or infectious process is possible. No evidence of drainable abscess. Patient was discharged home with a 10-day course of cefdinir and instructed to follow-up with primary care physician for further management 2. Class III obesity with BMI of 50.3 ? Complicating care 3. DVT prophylaxis ? SC Lovenox dose adjusted for weight Time spent in the patient's overall evaluation,decision-making process, review of diagnostic data, adjustment of management, discussion with other providers, nursing nursing and ancillary staff involved in patient's care documentation, 35 minutes Medications at Discharge Home Medications cefdinir 300 mg capsule 300 mg PO BID #20 caps 03/26/23 Hospital Course Summary of Care Provided Minutes Spent on Discharge: 35 Physical Exam Narrative GENERAL: cooperative HEENT: Atraumatic; normocephalic EYES; Anicteric, Normal Conjunctiva NECK; supple, normal thyroid, RESPIRATORY: Diminished to auscultation CARDIOVASCULAR: Regular S1 S2, GI: soft, normoactive bowel sounds, : No Renal angle tenderness; EXTREMITIES: No edema, no clubbing, MUSCULOSKELETAL: no muscle wasting NEURO: Awake; no lateralizing signs. SKIN: An area of erythema and warmth involving the lower abdomen PSYCH; Flat affect Weight / BMI Weight Weight: 155 kg Body Mass Index (BMI) 58.3 ABG / Lab / Microbiology Data 03/26/23 06:30 03/26/23 06:30 Laboratory: Laboratory Results - last 24 hr 03/26/23 00:37: Vancomycin Trough 10.0 03/26/23 06:30: WBC 6.8, RBC 4.07 L, Hgb 11.1 L, Hct 35.0 L, MCV 86.0, MCH 27.3, MCHC 31.7 L, RDW Std Deviation 45.0 H, RDW Coeff of Ankita 14.3, Plt Count 211, MPV 9.5, Immature Gran % (Auto) 0.400, Neut % (Auto) 56.6, Lymph % (Auto) 29.7, [place] % (Auto) 9.0, Eos % (Auto) 3.7, Baso % (Auto) 0.6, Absolute Neuts (auto) 3.9, Absolute Lymphs (auto) 2.02, Nucleated RBC % 0, Sodium 141, Potassium 4.7, Chloride 113 H, Carbon Dioxide 24.0, Anion Gap 4 L, BUN 11, Creatinine 0.68, Estim Creat Clear Calc 100.66, Est GFR (MDRD) Af Amer 126, Est GFR (MDRD) Non-Af 104, BUN/Creatinine Ratio 16.1, Glucose 101, Calcium 8.5 Microbiology: Microbiology 03/23/23 18:46 Blood Culture (Wb) - Venous Blood Culture - Preliminary No growth in 48 hours. 03/23/23 18:35 Blood Culture (Wb) - Venous Blood Culture - Preliminary No growth in 48 hours. Radiography Diagnostic Testing: Radiology Impression Abdomen/Pelvis CT 03/26/23 09:08 IMPRESSION: 1. Thickening of the anterior abdominal wall above the level of the umbilicus could be due to umbilical hernia repair. Inflammatory or infectious process is possible. No evidence of drainable abscess. 2. Ventral hernia containing fat. 3. Otherwise no focal acute inflammatory process. Electronically Signed: Jose Raul Martins MD at 12:06 EDT , D/C Instructions Discharge Diet: No restrictions Discharge Activity: Return to Normal Activity Call your doctor if you observe: Fever of 101 or Higher, Shortness of breath, Fainting spells and Chest pain Meaningful Use Info Meaningful Use Diagnoses (Choose all that apply): None applicable Discharge Plan Admission Admit Date/Time: 03/23/23 19:53 Attending Provider: Beck Gomez Primary Care Provider: Jeff Foster Consulting Providers: Philip De La Cruz Discharge Orders/Prescriptions Prescriptions: New cefdinir 300 mg capsule 300 mg PO BID Qty: 20 0RF Referrals / Follow Up: Jeff Foster DO [Primary Care Provider] - 03/27/23 Disposition Disposition (needs filled in before D/C Order can be placed): Home, Self Care Charges/Coding Visit Charges Inpatient E&M: 97711 Disch Hosp >30min
[2023-03-26 13:10] VITALS: BP 116/64; PULSE 70; RESP 17; TEMP 36.8; O2SAT 98
--- NOTE | 2023-03-26 13:48 | PHA.DC_ITS ---
Pharmacy [facility] has performed discharge medication reconciliation and counseling for this patient. The patient's discharge medication list was reviewed for discrepancies and discrepancies were resolved. The patient was counseled on the following discharge medications and changes in medications for homegoing were reviewed. The Reason for Use, instructions for use, and potential side effects were reviewed for all new medications. The patient's questions regarding all of their medications were answered. 1. Cefdinir 300 mg PO Q12H x 10 days The patient was able to verbally demonstrate an understanding of their discharge medications. Medications at Discharge Home Medications cefdinir 300 mg capsule 300 mg PO BID #20 caps 03/26/23
== END 2023-03-26 14:03 | disposition home or self-care (01) | DRG 603 ==
LOC: ED 19:25 → MS3 20:23
PROVIDERS: Admitting Provider Hospitalist; Emergency Provider Emergency Medicine; PCP Family Medicine; Visit Provider Internal Medicine
DX: L03.311 Cellulitis of abdominal wall (principal); Z68.43 Body mass index [BMI] 50.0-59.9, adult; E66.01 Morbid (severe) obesity due to excess calories
CPT/HCPCS: 36415; 74177; 80048; 80053; 80202; 81001; 83605; 83735; 84100; 85025; 85610; 85730; 87040; 99285; J7030; J7040; Q9967; A4216; J0295

== ENCOUNTER 2025-06-07 01:46 | Emergency (ER) | payer OTHER, SELFPAY ==
[2025-06-07 01:48] VITALS: BP 135/93; PULSE 65; RESP 16; TEMP 36.9; O2SAT 98; BMI 53.8
[2025-06-07 02:18] LABS: Mucous, Urine 0 SEEN /hpf (<or=2+); Squamous Epithelial Cells - UA 0 SEEN /hpf (5-10)
[2025-06-07 02:21] LABS: Hematocrit 38.7 % (37-47); Hemoglobin 13.3 g/dL (12.0-15.0); Immature Granulocytes Count 0.040 X10^3/uL (0.0-0.0); Mean Corp Hgb Conc 34.4 g/dL (32-36); Mean Corpuscular Volume 82.3 fL (81-99); Mean Platelet Vol. 9.8 fl (6.2-12.0); NRBC Flagged by Analyzer 0 % (0-5); Platelet Count 252 K/mm3 (150-450); RBC Distribution Width CV 13.7 % (11.6-14.6); RBC Distribution Width SD 40.7 fl (35.1-43.9); Red Blood Count 4.70 M/mm3 (4.2-5.4); White Blood Count 13.7 K/mm3 (4.4-11.0)
[2025-06-07 02:29] LABS: Color, Urine Yellow (Yellow); Glucose, Dipstick Normal (Normal); Ketone-Dipstick 5 mg/dl (Negative); Leukocyte Esterase-Dipstick Negative /ul (Negative); Nitrite-Dipstick Negative (Negative); Occult Blood-Urine Negative /ul (Negative); Protein-Dipstick 15 mg/dl (Negative); Specific Gravity, Urine 1.010 (1.002-1.030); Urine Bilirubin Dipstick Negative (Negative)
--- OUTSIDE RECORDS SUMMARY | 2025-06-07 02:34 | XMS RPT_ITS | CCD ---
Author Organization [facility] Care Team Providers Care Recruiter Manager Name Role Phone NANCIE BRUSH Unavailable Unavailable NANCIE BRUSH Unavailable Unavailable PALACIOS, MARITZA Unavailable Unavailable PALACIOS, MARITZA Unavailable Unavailable PHILIP, MARITZA Unavailable Unavailable JEFF FOSTER Unavailable Unavailable PROVIDER, UNKNOWN Unavailable Unavailable Dr. Jeff Foster Primary Care Provider [phone] Dr. Kurtis Alexander Emergency Provider Dr. Philip De La Cruz Admit Provider [phone] Philip De La Cruz Attending Provider Dr. Philip De La Cruz Other Provider [phone] Kan Gomez Other Provider Unavailable Dr. Kan Gomez Attending Provider Unavailable Unavailable Primary Care Provider Unavailadilson mckeon Unavailable Primary Care Provider UnavailKAN Kothari Attending Unavailable KAN OLIVER Referring Unavailable ALISSA FISHER Referring Unavailable Medications Current Medications Medication Drug Class(es) Dates Sig (Normalized) Sig (Original) calcium carbonate/multivitamin (MULTIVITAMIN-CALCIUM CARB ORAL) (17 sources) calcium carbonate/multivitamin (MULTIVITAMIN-CALCIUM CARB ORAL) Take by mouth. Active calcium carbonat e/multivitamin (MULTIVITAMIN-CALCIUM CARB ORAL) Take by mouth. 0 Active Comment on above: Take by mouth. cefdinir 300 mg oral capsule (18 sources) Cephalosporin Antibacterial Start: 023 cefdinir (OMNICEF) 300 mg capsule Take by mouth. 03/26/2023 Active Comment on above: Take by mouth. ergocalciferol 1.25 mg oral capsule (8 sources) Provitamin D2 Compound Start: 024 take 1 capsule by mouth every week ergocalciferol 50,000 unit capsule (VITAMIN D2, DRISDCARLITOS) Indications: Vitamin D deficiency Take 1 capsule by mouth one time a week. 8 capsule 02/12/2024 Active evening primrose oil (EVENING PRIMROSE ORAL) (17 sources) evening primrose oil (EVENING PRIMROSE ORAL) Take by mouth. Active evening primrose oil (EVENING PRIMROSE ORAL) Take by mouth. 0 Active Comment on above: Take by mouth. Completed/Discontinued Medications Medication Drug Class(es) Dates Sig (Normalized) Sig (Original) enteric contrast (will be provided with radiology test) (1 source) Start: 09-13-2023 End: 09-13-2023 take 1 dose by mouth once, then take 1 dose by mouth once enteric contrast (will be provided with radiology test) Take 1 Each by mouth one time only for [address] ABD/PEL WO Routine order Administer, As Directed One Time Only, via Oral, Rectal, both Oral and Rectal, Enteric Tube, Stoma or Indwelling Catheter, Enteric Contrast as designated per enteric contrast guidelines 1 Each 0 09/13/2023 09/13/2023 Comment on above: Take 1 Each by mouth one time only for [address] ABD/PEL WO Routine order Administer, As Directed One Time Only, via Oral, Rectal, both Oral and Rectal, Enteric Tube, Stoma or Indwelling Catheter, Enteric Contrast as designated per enteric contrast guidelines Problems Active Problems Problem Classification Problem Date Documented Da te Episodic/Chronic Abdominal hernia (8 sources) Incisional hernia; Translations: [Incisional hernia without obstruction or gangrene] Onset: 02-16-2025 09-13-2023 Episodic Administrative/social admission (3 sources) Patient encounter status; Translations: [Dietary counseling and surveillance] Onset: 02-16-2025 02-07-2024 Episodic Nutritional deficiencies (1 source) Vitamin D deficiency; Translations: [Vitamin D deficiency, unspecified] 02-12-2024 Chronic Other nutritional; endocrine; and metabolic disorders (20 sources) Morbid obesity; Translations: [Morbid (severe) obesity due to excess calories] Onset: 09-28-2023 03-23-2023 Chronic Other nutritional; endocrine; and metabolic disorders (3 sources) Morbid (severe) obesity due to excess calories; Translations: [Morbid obesity] Onset: 09-28-2023 03-23-2023 Chronic Other nutritional; endocrine; and metabolic disorders (1 source) Excess panniculus of abdomen; Translations: [Localized adiposity] 01-03-2024 Chronic Other nutritional; endocrine; and metabolic disorders (3 sources) Severe obesity; Translations: [Morbid (severe) obesity due to excess calories] 02-07-2024 Chronic Past or Other Problems Problem Classification Problem Date Documented Da te Episodic/Chronic Septicemia (except in labor) (20 sources) Sepsis without acute organ dysfunction; Translations: [Sepsis, unspecified organism] Onset: 09-28-2023 03-23-2023 Episodic Skin and subcutaneous tissue infections (20 sources) Cellulitis of abdominal wall ; Translations: [Cellulitis of abdominal wall] Onset: 09-28-2023 03-23-2023 Episodic Results Test Name Value Interpretation Reference Range Facility CNOVon 02-16-2025 CNOV Office Visit (GAYATHRI) THAD HEADLEY CHRISTIANE Mckeon ([id number]) 1990 F Date Time Provider Department 02/16/25 2:30 PM KAN OLIVER During your visit today, we recorded the following information about you: Temperature Pulse Blood pressure Weight 98.7 degrees 64/minute 121/62 144.7 kg Height Last Period 1.524 m 02/06/25 Maryjane Merino 02/19/2025 7:35 AM Signed What is the reason for your visit today? consult Who is your referring physician? SELF Are you having poor oral intake? NO Have you had unintentional weight loss of 15 lbs/7 Kg in the last 3-6 months? NO Bowels: regular Wound: clean AND dry Temperature: No Drains: No Kan Oliver MD 02/19/2025 7:35 AM Signed [facility] PATIENT NAME: Ema Mckeon Kayode INTERVAL HPI: Since last July, patient has been overall well. Symptoms include pain and bulge. Does describe episodes of incarceration and pain in ED. Has not lost too much weight, BMI 62 from 66. Reports stressors at home preventing weight loss but new book on dieting which has helped so far. PHYSICAL EXAM: BP 121/62 Pulse 64 Temp 37.1 ?C (98.7 ?F) (Temporal) Ht 152.4 cm (5') Wt (!) 144.7 kg (319 lb) LMP 02/06/2025 BMI 62.30 kg/m? Body mass index is 62.3 kg/m?. GENERAL: Alert and oriented, no acute distress, cooperative. LUNGS: Non labored breathing, clear to ascultation bilaterally ABDOMEN: soft, non tender, non distended, upper midline hernia palpable [facility] CT scan recently with complex ventral hernia with some bowel and fat ASSESSMENT AND PLAN: Ema Headley is a 34 year old woman with a history of obesity and umbilical hernia repair who is being followed in clinic for recurrent ventral hernia. Discussed why it would be unwise to proceed with surgery now and the increased risk of recurrence and wound complications given her BMI. - Follow up in 3 months to assess weight loss progress Eddie Cardona MD General Surgery Attending Note I evaluated the patient and personally participated in the matthews components. I agree with the resident's findings and plan as documented and have discussed the case and management of the patient's care with the resident. 34-year-old female returns for ventral hernia for which I have previously seen her for. Last time we discussed weight loss as her BMI is currently greater than 60. We again discussed the importance of weight loss prior to surgery we discussed strategies for weight loss I also offered her consultation with the bariatric surgery team if she wished to do that. She describes starting a new diet using new book that she obtained and has found some success with so we will continue this and I will see her back in 3 to 4 months to check the progress of her weight loss. Signature: KAN OLIVER MD Referring Provider: KAN OLIVER [[id number]] Allergies As of Date: 02/16/2025 (No Known Allergies) Date Reviewed: 02/16/2025 Reviewed by: Maryjane Merino - Fully Assessed Reason for Visit: Consult [173] Primary Visit Diagnosis:Incisional hernia, without obstruction or gangrene [K43.2] Other Visit Diagnoses:Morbid obesity (HCC) [E66.01] Dietary counseling and surveillance [Z71.3] Prescriptions as of 02/19/2025 - ergocalciferol 50,000 unit capsule (VITAMIN D2, DRISDOL) Take 1 capsule by mouth one time a week. - cefdinir (OMNICEF) 300 mg capsule Take by mouth. - calcium carbonate/multivitam in (MULTIVITAMIN-CALCIU M CARB ORAL) Take by mouth. - evening primrose oil (EVENING PRIMROSE ORAL) Take by mouth. Problem List As Of Date 02/16/2025 Noted Resolved Cellulitis of abdominal wall [L03.311] 09/28/2023 Diagnosed: 09/28/2023 Morbid obesity (HCC) [E66.01] 09/28/2023 Diagnosed: 09/28/2023 Sepsis without acute organ dysfunction (HCC) [A*09/28/2023 Diagnosed: 09/28/2023 Encounter Status:Closed by KAN OLIVER on 02/19/25 [address] [facility] CT ABD/PEL WO IVCONon 2024 CT ABD/PEL WO IVCON * * *Final Report* * * DATE OF EXAM: Feb 16 2025 1:41PM [facility] 0531 - CT ABD/PEL WO IVCON / PROCEDURE REASON: Incisional hernia, without obstruction or gangrene * * * * Physician Interpretation * * * * EXAMINATION: CT ABDOMEN AND PELVIS WITHOUT IV CONTRAST CLINICAL HISTORY: Incisional hernia, preoperative planning. TECHNIQUE: Non-IV contrast imaging of the abdomen and pelvis was performed using standard technique, scanning from just above the dome of the diaphragm to the symphysis pubis. Unenhanced imaging is limited for the evaluation of some intra-abdominal and pelvic pathology. MQ: CTAPWO_3 Contrast: IV: None CT Radiation dose: Integrated Dose-length product (DLP) for this visit = 1308 mGy*cm. CT Dose Reduction Employed: Automated exposure control(AEC) and iterative recon COMPARISON: CT abdomen and pelvis 01/19/2024 RESULT: Abdomen / Pelvis: Liver: Unremarkable. Biliary: The gallbladder is unremarkable. Spleen: No splenomegaly. Pancreas: Unremarkable. Adrenals: No mass. Kidneys: No calculus, hydronephrosis or finding to suggest a cyst or mass in the unenhanced kidney. GI Tract: No bowel dilation. Normal appendix. Lymph Nodes: No lymphadenopathy. Mesentery/peritoneum : No ascites. Retroperitoneum: No mass. Vasculature: No abdominal aortic or iliac artery aneurysm. Pelvis: Right adnexal physiologic cyst. Bones/Soft Tissues: Ventral abdominal wall hernia containing nondilated small bowel, edematous mesenteric fat, and trace free fluid. There is an additional smaller, more inferior hernia sac containing fat. Overall defect measures approximately 7 x 6 cm (3:89, 6:70). Degenerative changes. Skin thickening and subcutaneous edema along the inferior pannus. Lower thorax: Unremarkable. Localizer images: No additional findings. IMPRESSION: Complex ventral abdominal wall hernias containing nondilated bowel with findings concerning for fat incarceration. Fern Gatherer: [facility] Transcribe Date/Time: Feb 16 2025 1:46P Dictated by : MANUEL JASON DO This examination was interpreted and the report reviewed and electronically signed by: RUSSELL ALVAREZ MD on Feb 16 2025 2:27PM EST [id number] CN Normal [facility] CT Abdomen and Pelvis WO con traston 02-16-2025 IMPRESSION: Complex ventral abdominal wall hernias containing nondilated bowel with findings concerning for fat incarceration. Fern Gatherer: [facility] Transcribe Date/Time: Feb 16 2025 1:46P Dictated by : MANUEL JASON DO This examination was interpreted and the report reviewed and electronically signed by: RUSSELL ALVAREZ MD on Feb 16 2025 2:27PM EST DIVISION OF RADIOLOGY * * *Final Report* * * DATE OF EXAM: Feb 16 2025 1:41PM [facility] 0531 - CT ABD/PEL WO IVCON / PROCEDURE REASON: Incisional hernia, without obstruction or gangrene * * * * Physician Interpretation * * * * EXAMINATION: CT ABDOMEN AND PELVIS WITHOUT IV CONTRAST CLINICAL HISTORY: Incisional hernia, preoperative planning. TECHNIQUE: Non-IV contrast imaging of the abdomen and pelvis was performed using standard technique, scanning from just above the dome of the diaphragm to the symphysis pubis. Unenhanced imaging is limited for the evaluation of some intra-abdominal and pelvic pathology. MQ: CTAPWO_3 Contrast: IV: None CT Radiation dose: Integrated Dose-length product (DLP) for this visit = 1308 mGy*cm. CT Dose Reduction Employed: Automated exposure control(AEC) and iterative recon COMPARISON: CT abdomen and pelvis 01/19/2024 RESULT: Abdomen / Pelvis: Liver: Unremarkable. Biliary: The gallbladder is unremarkable. Spleen: No splenomegaly. Pancreas: Unremarkable. Adrenals: No mass. Kidneys: No calculus, hydronephrosis or finding to suggest a cyst or mass in the unenhanced kidney. GI Tract: No bowel dilation. Normal appendix. Lymph Nodes: No lymphadenopathy. Mesentery/peritoneum : No ascites. Retroperitoneum: No mass. Vasculature: No abdominal aortic or iliac artery aneurysm. Pelvis: Right adnexal physiologic cyst. Bones/Soft Tissues: Ventral abdominal wall hernia containing nondilated small bowel, edematous mesenteric fat, and trace free fluid. There is an additional smaller, more inferior hernia sac containing fat. Overall defect measures approximately 7 x 6 cm (3:89, 6:70). Degenerative changes. Skin thickening and subcutaneous edema along the inferior pannus. Lower thorax: Unremarkable. Localizer images: No additional findings. DIVISION OF RADIOLOGY Provider, [facility] - 02/16/2025 * * *Final Report* * * DATE OF EXAM: Feb 16 2025 1:41PM [facility] 0531 - CT ABD/PEL WO IVCON / PROCEDURE REASON: Incisional hernia, without obstruction or gangrene * * * * Physician Interpretation * * * * EXAMINATION: CT ABDOMEN AND PELVIS WITHOUT IV CONTRAST CLINICAL HISTORY: Incisional hernia, preoperative planning. TECHNIQUE: Non-IV contrast imaging of the abdomen and pelvis was performed using standard technique, scanning from just above the dome of the diaphragm to the symphysis pubis. Unenhanced imaging is limited for the evaluation of some intra-abdominal and pelvic pathology. MQ: CTAPWO_3 Contrast: IV: None CT Radiation dose: Integrated Dose-length product (DLP) for this visit = 1308 mGy*cm. CT Dose Reduction Employed: Automated exposure control(AEC) and iterative recon COMPARISON: CT abdomen and pelvis 01/19/2024 RESULT: Abdomen / Pelvis: Liver: Unremarkable. Biliary: The gallbladder is unremarkable. Spleen: No splenomegaly. Pancreas: Unremarkable. Adrenals: No mass. Kidneys: No calculus, hydronephrosis or finding to suggest a cyst or mass in the unenhanced kidney. GI Tract: No bowel dilation. Normal appendix. Lymph Nodes: No lymphadenopathy. Mesentery/peritoneum : No ascites. Retroperitoneum: No mass. Vasculature: No abdominal aortic or iliac artery aneurysm. Pelvis: Right adnexal physiologic cyst. Bones/Soft Tissues: Ventral abdominal wall hernia containing nondilated small bowel, edematous mesenteric fat, and trace free fluid. There is an additional smaller, more inferior hernia sac containing fat. Overall defect measures approximately 7 x 6 cm (3:89, 6:70). Degenerative changes. Skin thickening and subcutaneous edema along the inferior pannus. Lower thorax: Unremarkable. Localizer images: No additional findings. IMPRESSION IMPRESSION: Complex ventral abdominal wall hernias containing nondilated bowel with findings concerning for fat incarceration. Fern Gatherer: [facility] Transcribe Date/Time: Feb 16 2025 1:46P Dictated by : MANUEL JASON DO This examination was interpreted and the report reviewed and electronically signed by: RUSSELL ALVAREZ MD on Feb 16 2025 2:27PM [facility] Radiology Study observation (narrative) [facility] CT Abdomen and Pelvis WO con trastOrdered By: Ccf Provider on 02-16-2025 [facility] 01-22-2025 [facility] Telephone (GENINDYN) THAD HEADLEY ([id number]) 1990 F Date Time Provider Department 01/22/25 DEAN CLARK During your visit today, we recorded the following information about you: Dean Clark LPN 01/22/2025 11:51 AM Signed Called and spoke to pt's , verified name and . Regarding scheduling of CT. Pt's informed this ghost writer that they wanted it done the same day as appt with Dr. Oliver. Contacted same day ct, Chandana, allison for 1:30 pm on 02/16/2025 in [facility]. Thanked pt's and Chandana for their time and advised pt's of appt date and time. Pt's acknowledged and verbalized understanding. Dean Clark LPN Allergies As of Date: 01/22/2025 (No Known Allergies) Date Reviewed: 02/13/2024 Reviewed by: Kan Oliver MD - Fully Assessed Reason for Visit: Patient Question [1477] Prescriptions as of 01/22/2025 - ergocalciferol 50,000 unit capsule (VITAMIN D2, DRISDOL) Take 1 capsule by mouth one time a week. - cefdinir (OMNICEF) 300 mg capsule Take by mouth. - calcium carbonate/multivitam in (MULTIVITAMIN-CALCIU M CARB ORAL) Take by mouth. - evening primrose oil (EVENING PRIMROSE ORAL) Take by mouth. Problem List As Of Date 01/22/2025 Noted Resolved Cellulitis of abdominal wall [L03.311] 09/28/2023 Diagnosed: 09/28/2023 Morbid obesity (HCC) [E66.01] 09/28/2023 Diagnosed: 09/28/2023 Sepsis without acute organ dysfunction (HCC) [A*09/28/2023 Diagnosed: 09/28/2023 Encounter Status:Closed by DEAN CLARK on 01/22/25 [facility] 12-24-2024 [facility] Telephone (PLASMN) TAHD HEADLEY E ([id number]) 1990 F Date Time Provider Department 12/24/24 CHRISTIANA GOODSON During your visit today, we recorded the following information about you: Lesley Gallegos 12/24/2024 2:07 PM Signed The of the patient is asking id Dr. Goodson would be comfortable doing the plastic surgery on his after hernia surgery with the current weight she is at 315lbs. He has questions and would like to speak to someone from the clinical team regarding this. . Marcia Niño RN 12/26/2024 1:56 PM Signed RN attempted to return patient's call regarding panniculectomy/herni a repair surgery with Dr. Oliver. Patient unavailable. Per Dr. Goodson, lower BMI will reduce risk of complications, but we will defer to Dr. Oliver's team for clearance to move forward with scheduling surgery. Patient will need to see Dr. Goodson before surgery date for pre op appointment. Marcia Niño RN December 26, 2024 1:56 PM Allergies As of Date: 12/24/2024 (No Known Allergies) Date Reviewed: 02/13/2024 Reviewed by: Kan Oliver MD - Fully Assessed Prescriptions as of 12/26/2024 - ergocalciferol 50,000 unit capsule (VITAMIN D2, DRISDOL) Take 1 capsule by mouth one time a week. - cefdinir (OMNICEF) 300 mg capsule Take by mouth. - calcium carbonate/multivitam in (MULTIVITAMIN-CALCIU M CARB ORAL) Take by mouth. - evening primrose oil (EVENING PRIMROSE ORAL) Take by mouth. Problem List As Of Date 12/24/2024 Noted Resolved Cellulitis of abdominal wall [L03.311] 09/28/2023 Diagnosed: 09/28/2023 Morbid obesity (HCC) [E66.01] 09/28/2023 Diagnosed: 09/28/2023 Sepsis without acute organ dysfunction (HCC) [A*09/28/2023 Diagnosed: 09/28/2023 Encounter Status:Closed by LESLEY GALLEGOS on 12/24/24 [facility] Samantha 04-01-2024 CNPN Telephone (MintN) THAD HEADLEY ([id number]) 1990 F Date Time Provider Department 04/01/24 ALISSA GUIDRY During your visit today, we recorded the following information about you: Alissa Guidry APRN.DIRECTOR OF EMPLOYEE DEVELOPMENT 04/01/2024 8:28 AM Signed Spoke with Ema Linda Headley yesterday April 02, 2024, on the phone regarding her anti-obesity medication. We previously discussed Phentermine versus Topiramate. Patient states that her and her discussed these and she would prefer to naturally try and lose weight. Advised patient to focus on increased physical activity and a high protein, low calorie eating plan. Patient to reach out if she decides she would like to try medications. Alissa Guidry, MSN, [employer]ODUCTION, FINISHING RANGE SUPERVISOR-C April 01, 2024 8:28 AM Allergies As of Date: 04/01/2024 (No Known Allergies) Date Reviewed: 02/13/2024 Reviewed by: Kan Oliver MD - Fully Assessed Reason for Visit: Patient Update [1234] Prescriptions as of 04/01/2024 - ergocalciferol 50,000 unit capsule (VITAMIN D2, DRISDOL) Take 1 capsule by mouth one time a week. - cefdinir (OMNICEF) 300 mg capsule Take by mouth. - calcium carbonate/multivitam in (MULTIVITAMIN-CALCIU M CARB ORAL) Take by mouth. - evening primrose oil (EVENING PRIMROSE ORAL) Take by mouth. Problem List As Of Date 04/01/2024 Noted Resolved Cellulitis of abdominal wall [L03.311] 09/28/2023 Diagnosed: 09/28/2023 Morbid obesity (HCC) [E66.01] 09/28/2023 Diagnosed: 09/28/2023 Sepsis without acute organ dysfunction (HCC) [A*09/28/2023 Diagnosed: 09/28/2023 Encounter Status:Closed [facility] AL[facility]SA [facility]UIDRY [facility]01[facility] (GAYATHRI) THAD HEADLEY E ([id number]) 1990 F Date Time Provider Department 03/28/24 ALISSA GUIDRY During your visit today, we recorded the following information about you: Alissa Guidry APRN.DIRECTOR OF EMPLOYEE DEVELOPMENT 03/28/2024 3:28 PM Signed Spoke with Ema Headley today, March 28, 2024, on the phone regarding her a nti obesity medications. Discussed with patient that her Ozempic can not be covered by [employer] as she does not have Type 2 DM. Discussed Phentermine and Topiramate. Patient will call on Sunday once she decides what she would like to start. Also notified patient that if she took Phentermine, she would need to be able to monitor BP and HR. Alissa Guidry, MSN, [employer]AL [employer]ER [employer]ODUCTION, FINISHING RANGE SUPERVISOR-C March 28, 2024 3:28 PM Allergies As of Date: 03/28/2024 (No Known Allergies) Date Reviewed: 02/13/2024 Reviewed by: Kan Oliver MD - Fully Assessed Reason for Visit: Patient Update [1234] Prescriptions as of 03/28/2024 - ergocalciferol 50,000 unit capsule (VITAMIN D2, DRISDOL) Take 1 capsule by mouth one time a week. - cefdinir (OMNICEF) 300 mg capsule Take by mouth. - calcium carbonate/multivitam in (MULTIVITAMIN-CALCIU M CARB ORAL) Take by mouth. - evening primrose oil (EVENING PRIMROSE ORAL) Take by mouth. Problem List As Of Date 03/28/2024 Noted Resolved Cellulitis of abdominal wall [L03.311] 09/28/2023 Diagnosed: 09/28/2023 Morbid obesity (HCC) [E66.01] 09/28/2023 Diagnosed: 09/28/2023 Sepsis without acute organ dysfunction (HCC) [A*09/28/2023 Diagnosed: 09/28/2023 Encounter Status:Closed by ALISSA GUIDRY on 03/28/24 [facility] 2024 [facility] Telephone (GAYATHRI) THAD HEADLEY E ([id number]) 1990 F Date Time Provider Department 03/13/24 ALISSA GUIDRY During your visit today, we recorded the following information about you: Alissa Guidry APRN.DIRECTOR OF EMPLOYEE DEVELOPMENT 2024 11:17 AM Signed Spoke with Ema Headley's neighbor today, 2024, on the phone regarding her patient assistance program application. This is the phone number approved by the patient to use. Notified the neighbor that I received the tax information and one piece of the application but there is one more page of the application that needs to be faxed over before I can send the application in to [employer]. Also, spoke with [employer] who notified me that this program is not government funded and is funded by the pharmaceutical company. Alissa Guidry, MSN, METAL SPR[employer]ER [employer]ODUCTION, FINISHING RANGE SUPERVISOR-C 2024 11:17 AM Allergies As of Date: 2024 (No Known Allergies) Date Reviewed: 02/13/2024 Reviewed by: Kan Oliver MD - Fully Assessed Reason for Visit: Patient Update [1234] Prescriptions as of 2024 - ergocalciferol 50,000 unit capsule (VITAMIN D2, DRISDOL) Take 1 capsule by mouth one time a week. - cefdinir (OMNICEF) 300 mg capsule Take by mouth. - calcium carbonate/multivitam in (MULTIVITAMIN-CALCIU M CARB ORAL) Take by mouth. - evening primrose oil (EVENING PRIMROSE ORAL) Take by mouth. Problem List As Of Date 2024 Noted Resolved Cellulitis of abdominal wall [L03.311] 09/28/2023 Diagnosed: 09/28/2023 Morbid obesity (HCC) [E66.01] 09/28/2023 Diagnosed: 09/28/2023 Sepsis without acute organ dysfunction (HCC) [A*09/28/2023 Diagnosed: 09/28/2023 Encounter Status:Closed by ALISSA GUIDRY on 03/13/24 Normal [facility] THYROID STIMULATING HORMONEo n 02-07-2024 TSH Qn 1.690 m[IU]/L [facility] Comment on above: If the patient is pr egnant, TSH reference range varies by gestational period: First Trimester (weeks 9-12): 0.180-2.990 mIU/L Second Trimester: 0.110-3.980 mIU/L Third Trimester: 0.480-4.710 mIU/L Andre Valenzuela et al. A Practical Approach for the Verifications and Determination of Site- and Trimester-Specific Reference Intervals for Thyroid Function tests in . Thyroid, 2019:29:3:412-420. Carlos Mckeon et al. 2017 Guidelines of the [place] [employer] for the Diagnosis and Management of Thyroid Disease during and the . Thyroid, 2017:27:3:315-389. TSH Qnon 02-07-2024 Interpretation and review of laboratory results Normal [facility] Absolute lymphocyte countOrd ered By: Kan Gomez on 03-26-2023 Lymphocytes Auto (Unsp spec) [#/Vol] 2.02 10*3/uL 0.83-4.51 [facility] Basophil percentageOrdered B y: Kan Gomez on 03-26-2023 Basophils/100 WBC (Bld) 0.6 % 0-1 [facility] Chloride [Moles/Vol] 113 mmol/L 98-107 [facility] Eosinophils/100 WBC (Bld) 3.7 % 0-5 [facility] Glucose [Mass/Vol] 101 mg/dL 74-106 [facility] Comment on above: Fasting Glucose resu lt from 100 to 125 mg/dL suggests IMPAIRED HOMEOSTASIS per A.D.A. criteria. Neutrophils (Bld) [#/Vol] 3.9 10*3/uL 2.0-7.7 [facility] Neutrophils/100 WBC (Bld) 56.6 % 47-70 [facility] Potassium [Moles/Vol] 4.7 mmol/L 3.5-5.[address] [facility] Sodium [Moles/Vol] 141 mmol/L 136-145 [facility] WBC (Bld) [#/Vol] 6.8 10*3/uL 4.4-11.0 [facility] Blood erythrocytes count (nu mber/volume)Ordered By: Kan Gomez on 03-26-2023 RBC (Bld) [#/Vol] 4.07 10*6/uL 4.2-5.4 [facility] Blood hemoglobin measurement (mass/volume)Ordered By: Kan Gomez on 03-26-2023 Hemoglobin (Bld) [Mass/Vol] 11.1 g/dL 12.0-15.0 [facility] Blood lymphocytes/100 leukoc ytesOrdered By: Kan Gomez on 03-26-2023 Lymphocytes/100 WBC (Bld) 29.7 % 19-41 [facility] Blood monocytes/100 leukocyt esOrdered By: Kan Gomez on 03-26-2023 Monocytes/100 WBC (Bld) 9.0 % 0-10 [facility] Blood platelet mean volumeOr dered By: Kan Gomez on 03-26-2023 Platelet mean volume (Bld) [Entitic vol] 9.5 fL 6.2-12.0 [facility] Determination of erythrocyte mean corpuscular volume (MCV)Ordered By: Kan Gomez on 03-26-2023 MCV (RBC) [Entitic vol] 86.0 fL 81-99 [facility] Hematocrit Auto (Bld) [Volum e fraction]Ordered By: Kan Gomez on 03-26-2023 Hematocrit (Bld) [Volume fraction] 35.0 % 37-47 [facility] Laboratory - Chemistry and C hemistry - challengeOrdered By: Kan Gomez on 03-26-2023 CO2 [Moles/Vol] 24.0 mmol/L 21.0-32.0 [facility] Urea nitrogen/Creatinine [Mass ratio] 16.1 mg/mg 10-20 [facility] Laboratory - Hematology and Cell countsOrdered By: Kan Gomez on 03-26-2023 Erythrocyte distribution width (RBC) [Entitic vol] 45.0 fL 35.1-43.9 [facility] Erythrocyte distribution width (RBC) [Ratio] 14.3 % 11.6-14.6 [facility] Immature granulocytes/100 WBC (Bld) 0.400 % 0.0-0.9 [facility] Comment on above: IG% - Immature Granu locytes (promyelocytes, myelocytes and metamyelocytes) > 1% indicates that a LEFT SHIFT is Present. MCH (RBC) [Entitic mass] 27.3 pg 27.0-32.0 [facility] Nucleated RBC/100 WBC (Bld) [Ratio] 0 % 0-5 [facility] MCHC Auto (RBC) [Mass/Vol]Or dered By: Kan Gomez on 03-26-2023 MCHC (RBC) [Mass/Vol] 31.7 g/dL 32-[address] [facility] No Panel InformationOrdered By: Kan Gomez on 03-26-2023 Estimated Creatinine Clearance Calc 100.66 ml/min [facility] Estimated GFR (MDRD) Amer 126 mL/min >60 [facility] Comment on above: GFR Calc Estimated GFR (MDRD) Non-Af Amer 104 mL/min >60 [facility] Comment on above: Non- GFR Calc Platelets bldOrdered By: Surinder Gomez on 03-26-2023 Platelets (Bld) [#/Vol] 211 10*3/uL 150-450 [facility] Serum or plasma calcium seema urement (mass/volume)Ordered By: Kan Gomez on 03-26-2023 Calcium [Mass/Vol] 8.5 mg/dL 8.5-10.1 [facility] Serum or plasma creatinine m easurement (mass/volume)Ordered By: aKn Gomez on 03-26-2023 Creatinine [Mass/Vol] 0.68 mg/dL 0.55-1.[address] [facility] Comment on above: The validity of the calculated GFR & GFRAA in patients over 70 years has not been determined. Clinical correlation is essential. Serum or plasma trough vanco mycin levelOrdered By: Kan Gomez on 03-26-2023 Vancomycin trough [Mass/Vol] 10.0 ug/mL 5.0-15.0 [facility] Comment on above: VANCOMYCIN STANDARED DRUG THERAPY TROUGH LEVEL: 5.0 - 15.0 mg/L VANCOMYCIN HIGH INTENSITY THERAPY TROUGH LEVEL: 15.0 - 20.0 mg/L High Intensity therapy recommended for serious lifethreatening infections include:- Uidvpszgun-Fwtzokdslrwg-Vopbxuojm (Ventilator/Healtcare Associated)-Sepsis PLEASE CONTACT PHARMACY SERVICES (#[id number]) FOR INTERPRETATIONOF RESULTS. Serum or plasma urea nitroge n measurement (mass/volume)Ordered By: Kan Gomez on 03-26-2023 Urea nitrogen [Mass/Vol] 11 mg/dL 7-18 [facility] Thin prep Papanicolaou smear with manual screeningOrdered By: Kan Gomez on 03-26-2023 Thin prep Papanicolaou smear with manual screening 4 5-15 [facility] Basophil percentageOrdered B y: Kan Gomez on 03-25-2023 Basophil percentage 2.3 mg/dL 2.5-4.9 [facility] Laboratory - Chemistry and C hemistry - challengeOrdered By: Kan Gomez on 03-25-2023 Magnesium [Mass/Vol] 2.2 mg/dL 1.6-2.6 [facility] Absolute lymphocyte countOrd ered By: Kurtis Alexander on 03-23-2023 Lymphocytes Auto (Unsp spec) [#/Vol] 1.51 10*3/uL 0.83-4.51 [facility] Basophil percentageOrdered B y: Kurtis Alexander on 03-23-2023 Basophil percentage 0 SEEN /hpf 0-5 [facility] Basophils/100 WBC (Bld) 0.6 % 0-1 [facility] Bilirubin [Mass/Vol] 0.70 mg/dL 0.20-1.00 [facility] Comment on above: For patients on eltr ombopag therapy, use of Dimension [place] TBIL is not recommended. Chloride [Moles/Vol] 107 mmol/L 98-107 [facility] Eosinophils/100 WBC (Bld) 0.7 % 0-5 [facility] Glucose [Mass/Vol] 100 mg/dL 74-106 [facility] Comment on above: Fasting Glucose resu lt from 100 to 125 mg/dL suggests IMPAIRED HOMEOSTASIS per A.D.A. criteria. Lactate [Moles/Vol] 1.0 mmol/L 0.4-2.0 [facility] Neutrophils (Bld) [#/Vol] 7.4 10*3/uL 2.0-7.7 [facility] Neutrophils/100 WBC (Bld) 73.8 % 47-70 [facility] Potassium [Moles/Vol] 3.6 mmol/L 3.5-5.[address] [facility] Protein [Mass/Vol] 7.2 g/dL 6.4-8.2 [facility] Sodium [Moles/Vol] 138 mmol/L 136-145 [facility] WBC (Bld) [#/Vol] 10.1 10*3/uL 4.4-11.0 [facility] Bilirubin Test strip Ql (U)O rdered By: Kurtis Alexander on 03-23-2023 Bilirubin Ql (U) Negative Negative [facility] Blood erythrocytes count (nu mber/volume)Ordered By: Kurtis Alexander on 03-23-2023 RBC (Bld) [#/Vol] 4.66 10*6/uL 4.2-5.4 [facility] Blood hemoglobin measurement (mass/volume)Ordered By: Kurtis Alexander on 03-23-2023 Hemoglobin (Bld) [Mass/Vol] 12.6 g/dL 12.0-15.0 [facility] Blood lymphocytes/100 leukoc ytesOrdered By: Kurtis Alexander on 03-23-2023 Lymphocytes/100 WBC (Bld) 15.0 % 19-41 [facility] Blood monocytes/100 leukocyt esOrdered By: Kurtis Alexander on 03-23-2023 Monocytes/100 WBC (Bld) 9.4 % 0-10 [facility] Blood platelet mean volumeOr dered By: Kurtis Alexander on 03-23-2023 Platelet mean volume (Bld) [Entitic vol] 10.0 fL 6.2-12.0 [facility] Determination of erythrocyte mean corpuscular volume (MCV)Ordered By: Kurtis Alexander on 03-23-2023 MCV (RBC) [Entitic vol] 84.3 fL 81-99 [facility] Hematocrit Auto (Bld) [Volum e fraction]Ordered By: Kurtis Alexander on 03-23-2023 Hematocrit (Bld) [Volume fraction] 39.3 % 37-47 [facility] INR in Blood by Coagulation assayOrdered By: Kurtismisha Alexander on 03-23-2023 INR Coag (Bld) [Relative time] 1.2 {INR} [facility] Ketones Test strip Ql (U)Ord ered By: Kurtismisha Alexander on 03-23-2023 Ketones Ql (U) 15 mg/dl Negative [facility] Laboratory - Chemistry and C hemistry - challengeOrdered By: Kurtismisha Alexander on 03-23-2023 ALP [Catalytic activity/Vol] 60 U/L 45-117 [facility] ALT [Catalytic activity/Vol] 26 U/L 13-56 [facility] CO2 [Moles/Vol] 27.0 mmol/L 21.0-32.0 [facility] Globulin (S) [Mass/Vol] 4.1 g/dL 2.2-4.2 [facility] Urea nitrogen/Creatinine [Mass ratio] 11.7 mg/mg 10-20 [facility] Laboratory - CoagulationOrde red By: Kurtismisha Alexander on 03-23-2023 aPTT Coag (Bld) [Time] 39.3 s 24.1-36.2 [facility] Coag (PPP) [Time] 15.2 s 11.7-14.9 [facility] Laboratory - Hematology and Cell countsOrdered By: Kurtismisha Alexander on 03-23-2023 Erythrocyte distribution width (RBC) [Entitic vol] 44.0 fL 35.1-43.9 [facility] Erythrocyte distribution width (RBC) [Ratio] 14.4 % 11.6-14.6 [facility] Immature granulocytes/100 WBC (Bld) 0.500 % 0.0-0.9 [facility] Comment on above: IG% - Immature Granu locytes (promyelocytes, myelocytes and metamyelocytes) > 1% indicates that a LEFT SHIFT is Present. MCH (RBC) [Entitic mass] 27.0 pg 27.0-32.0 [facility] Nucleated RBC/100 WBC (Bld) [Ratio] 0 % 0-5 [facility] MCHC Auto (RBC) [Mass/Vol]Or dered By: Kurtismisha Alexander on 03-23-2023 MCHC (RBC) [Mass/Vol] 32.1 g/dL 32-[address] [facility] Mucus LM Ql (Urine sed)Order ed By: Kurtis Alexander on 03-23-2023 Mucus Ql (Urine sed) 0 SEEN /hpf [facility] Nitrite Test strip Ql (U)Ord ered By: Kurtis Alexander on 03-23-2023 Nitrite Ql (U) Negative Negative [facility] No Panel InformationOrdered By: Kurtis Alexander on 03-23-2023 Estimated Creatinine Clearance Calc 79.59 ml/min [facility] Estimated GFR (MDRD) Amer 98 mL/min >60 [facility] Comment on above: GFR Calc Estimated GFR (MDRD) Non-Af Amer 81 mL/min >60 [facility] Comment on above: Non- GFR Calc Platelets bldOrdered By: Kurtis Alexander on 03-23-2023 Platelets (Bld) [#/Vol] 180 10*3/uL 150-450 [facility] Protein Test strip Ql (U)Ord ered By: Kurtis Alexander on 03-23-2023 Protein Ql (U) 30 mg/dl Negative [facility] Serum or plasma albumin seema urement (mass/volume)Ordered By: Kurtis Alexander on 03-23-2023 Albumin [Mass/Vol] 3.1 g/dL 3.2-5.0 [facility] Serum or plasma albumin/glob ulin mass ratioOrdered By: Kurtis Alexander on 03-23-2023 Albumin/Globulin [Mass ratio] 0.8 {ratio} 0.9-2.4 [facility] Serum or plasma calcium seema urement (mass/volume)Ordered By: Kurtis Alexander on 03-23-2023 Calcium [Mass/Vol] 8.9 mg/dL 8.5-10.1 [facility] Serum or plasma creatinine m easurement (mass/volume)Ordered By: Kurtis Alexander on 03-23-2023 Creatinine [Mass/Vol] 0.86 mg/dL 0.55-1.[address] [facility] Comment on above: The validity of the calculated GFR & GFRAA in patients over 70 years has not been determined. Clinical correlation is essential. Serum or plasma urea nitroge n measurement (mass/volume)Ordered By: Kurtis Alexander on 03-23-2023 Urea nitrogen [Mass/Vol] 10 mg/dL 7-18 [facility] Squamous epithelial cells de tection in urine sediment by light microscopyOrdered By: Kurtis Alexander on 03-23-2023 Epithelial cells.squamous LM Ql (Urine sed) 0-5 SEEN /hpf 5-10 [facility] Thin prep Papanicolaou smear with manual screeningOrdered By: Kurtis Alexander on 03-23-2023 Thin prep Papanicolaou smear with manual screening 18 U/L 15-37 [facility] Thin prep Papanicolaou smear with manual screening 4 5-15 [facility] Urine blood detectionOrdered By: Kurtis Alexander on 03-23-2023 RBC Ql (U) 25 /ul Negative [facility] RBC Ql (U) 0 SEEN /hpf 0-5 [facility] Urine clarityOrdered By: Kurtis Alexander on 03-23-2023 Clarity (U) Clear Clear [facility] Urine color determinationOrd ered By: Kurtis Alexander on 03-23-2023 Color (U) Yellow Yellow [facility] Urine glucose detectionOrder ed By: Kurtis Alexander on 03-23-2023 Glucose Ql (U) Normal mg/dl Normal [facility] Urine leukocyte esterase det ection by dipstickOrdered By: Kurtis Alexandre on 03-23-2023 Leukocyte esterase Test strip Ql (U) Negative Negative [facility] Urine pHOrdered By: Kurtis cabral on 03-23-2023 pH (U) 7.0 [pH] 5.0 - 8.0 [facility] Urine sediment bacteria coun t by microscopy (number/high power field)Ordered By: Kurtis Alexander on 03-23-2023 Bacteria LM.HPF (Urine sed) [#/Area] RARE /hpf None Seen [facility] Urine sediment yeast count b y microscopy (number/high powered field)Ordered By: Kurtis Alexander on 03-23-2023 Yeast LM.HPF (Urine sed) [#/Area] RARE /hpf None Seen [facility] Urine specific gravity measu rementOrdered By: Kurtis Alexander on 03-23-2023 Specific gravity (U) [Rel density] 1.015 1.002-1.030 [facility] Urobilinogen Auto test strip Ql (U)Ordered By: Kurtis Alexander on 03-23-2023 Urobilinogen Ql (U) Normal mg/dl Normal [facility] .Auto Diffon 10-19-2020 Basophil, Absolute 0.00 10 3/mcL Normal 0.00-0.27 [facility] ([place]) Comment on above: Performed By: #### C BC, ADIFF, ANEU, HBSAG, HIV, PABO, PABS, VARIS, RUBIS, RPR #### [address] [address] Basophils/100 WBC (Bld) 0.2 % Normal 0.0-2.5 [facility] ([place]) Comment on above: Performed By: #### C BC, ADIFF, ANEU, HBSAG, HIV, PABO, PABS, VARIS, RUBIS, RPR #### [address] [address] Eosinophil, Absolute 0.10 10 3/mcL Normal 0.00-0.65 [facility] ([place]) Comment on above: Performed By: #### C BC, ADIFF, ANEU, HBSAG, HIV, PABO, PABS, VARIS, RUBIS, RPR #### [address] [address] Eosinophils/100 WBC (Bld) 1.4 % Normal 0.0-6.0 [facility] ([place]) Comment on above: Performed By: #### C BC, ADIFF, ANEU, HBSAG, HIV, PABO, PABS, VARIS, RUBIS, RPR #### [address] [address] Lymphocyte, Absolute 1.70 10 3/mcL Normal 0.90-4.32 [facility] ([place]) Comment on above: Performed By: #### C BC, ADIFF, ANEU, HBSAG, HIV, PABO, PABS, VARIS, RUBIS, RPR #### [address] [address] Lymphocytes/100 WBC (Bld) 16.9 % Low 20.0-40.0 [facility] ([place]) Comment on above: Performed By: #### C BC, ADIFF, ANEU, HBSAG, HIV, PABO, PABS, VARIS, RUBIS, RPR #### [place] [id number] Monocyte, Absolute 1.00 10 3/mcL Normal 0.09-1.40 [facility] ([place]) Comment on above: Performed By: #### C BC, ADIFF, ANEU, HBSAG, HIV, PABO, PABS, VARIS, RUBIS, RPR #### [place] [address] Monocytes/100 WBC (Bld) 9.5 % Normal 2.0-13.0 [facility] ([place]) Comment on above: Performed By: #### C BC, ADIFF, ANEU, HBSAG, HIV, PABO, PABS, VARIS, RUBIS, RPR #### [place] [address] Neutrophils/100 WBC (Bld) 72.0 % Normal 50.0-75.0 [facility] ([place]) Comment on above: Performed By: #### C BC, ADIFF, ANEU, HBSAG, HIV, PABO, PABS, VARIS, RUBIS, RPR #### [place] [address] .NEUABSon 10-19-2020 Neutrophil, Absolute 7.30 10 3/mcL Normal 2.25-8.10 [facility] ([place]) Comment on above: Performed By: #### C BC, ADIFF, ANEU, HBSAG, HIV, PABO, PABS, VARIS, RUBIS, RPR #### [address] [address] CBCon 10-19-2020 Erythrocyte distribution width (RBC) [Ratio] 13.9 % Normal 11.5-15.5 [facility] ([place]) Comment on above: Performed By: #### C BC, ADIFF, ANEU, HBSAG, HIV, PABO, PABS, VARIS, RUBIS, RPR #### [place] [address] Hematocrit (Bld) [Volume fraction] 29.2 % Low 34.0-46.0 [facility] ([place]) Comment on above: Performed By: #### C BC, ADIFF, ANEU, HBSAG, HIV, PABO, PABS, VARIS, RUBIS, RPR #### [place] [address] Hgb 10.1 G/dL Low 12.0-16.0 [facility] ([place]) Comment on above: Performed By: #### C BC, ADIFF, ANEU, HBSAG, HIV, PABO, PABS, VARIS, RUBIS, RPR #### [place] [address] MCH (RBC) [Entitic mass] 29.9 pg Normal 27.0-33.0 [facility] ([place]) Comment on above: Performed By: #### C BC, ADIFF, ANEU, HBSAG, HIV, PABO, PABS, VARIS, RUBIS, RPR #### [place] [address] MCHC 34.6 G/dL Normal 32.0-36.0 [facility] ([place]) Comment on above: Performed By: #### C BC, ADIFF, ANEU, HBSAG, HIV, PABO, PABS, VARIS, RUBIS, RPR #### [place] [id number] MCV (RBC) [Entitic vol] 86.6 fL Normal 80.0-99.0 [facility] ([place]) Comment on above: Performed By: #### C BC, ADIFF, ANEU, HBSAG, HIV, PABO, PABS, VARIS, RUBIS, RPR #### [place] [id number] Platelet 168 10 3/mcL Normal 150-450 [facility] ([place]) Comment on above: Performed By: #### C BC, ADIFF, ANEU, HBSAG, HIV, PABO, PABS, VARIS, RUBIS, RPR #### [place] [id number] Platelet mean volume (Bld) [Entitic vol] 8.0 fL Normal 6.6-10.5 [facility] ([place]) Comment on above: Performed By: #### C BC, ADIFF, ANEU, HBSAG, HIV, PABO, PABS, VARIS, RUBIS, RPR #### [place] [id number] RBC 3.37 10 6/mcL Low 4.10-5.30 [facility] ([place]) Comment on above: Performed By: #### C BC, ADIFF, ANEU, HBSAG, HIV, PABO, PABS, VARIS, RUBIS, RPR #### [place] [address] WBC 10.10 10 3/mcL Normal 4.50-10.80 [facility] ([place]) Comment on above: Performed By: #### C BC, ADIFF, ANEU, HBSAG, HIV, PABO, PABS, VARIS, RUBIS, RPR #### [place] [address] .Auto Diffon 10-18-2020 Basophil, Absolute 0.10 10 3/mcL Normal 0.00-0.27 [facility] ([place]) Comment on above: Performed By: #### C BC, ADIFF, ANEU, HBSAG, HIV, PABO, PABS, VARIS, RUBIS, RPR #### [place] [address] Basophils/100 WBC (Bld) 0.5 % Normal 0.0-2.5 [facility] ([place]) Comment on above: Performed By: #### C BC, ADIFF, ANEU, HBSAG, HIV, PABO, PABS, VARIS, RUBIS, RPR #### [address] [address] Eosinophil, Absolute 0.30 10 3/mcL Normal 0.00-0.65 [facility] ([place]) Comment on above: Performed By: #### C BC, ADIFF, ANEU, HBSAG, HIV, PABO, PABS, VARIS, RUBIS, RPR #### [address] [address] Eosinophils/100 WBC (Bld) 2.1 % Normal 0.0-6.0 [facility] ([place]) Comment on above: Performed By: #### C BC, ADIFF, ANEU, HBSAG, HIV, PABO, PABS, VARIS, RUBIS, RPR #### [address] [address] Lymphocyte, Absolute 2.60 10 3/mcL Normal 0.90-4.32 [facility] ([place]) Comment on above: Performed By: #### C BC, ADIFF, ANEU, HBSAG, HIV, PABO, PABS, VARIS, RUBIS, RPR #### [address] [address] Lymphocytes/100 WBC (Bld) 19.9 % Low 20.0-40.0 [facility] ([place]) Comment on above: Performed By: #### C BC, ADIFF, ANEU, HBSAG, HIV, PABO, PABS, VARIS, RUBIS, RPR #### [address] [address] Monocyte, Absolute 1.00 10 3/mcL Normal 0.09-1.40 [facility] ([place]) Comment on above: Performed By: #### C BC, ADIFF, ANEU, HBSAG, HIV, PABO, PABS, VARIS, RUBIS, RPR #### [address] [address] Monocytes/100 WBC (Bld) 7.4 % Normal 2.0-13.0 [facility] ([place]) Comment on above: Performed By: #### C BC, ADIFF, ANEU, HBSAG, HIV, PABO, PABS, VARIS, RUBIS, RPR #### [address] [address] Neutrophils/100 WBC (Bld) 70.1 % Normal 50.0-75.0 [facility] ([place]) Comment on above: Performed By: #### C BC, ADIFF, ANEU, HBSAG, HIV, PABO, PABS, VARIS, RUBIS, RPR #### [address] [address] .NEUABSon 10-18-2020 Neutrophil, Absolute 9.10 10 3/mcL High 2.25-8.10 [facility] ([place]) Comment on above: Performed By: #### C BC, ADIFF, ANEU, HBSAG, HIV, PABO, PABS, VARIS, RUBIS, RPR #### [place] [address] ABO/Rh (Gel)on 10-18-2020 ABO/Rh Interp Positive Invalid Interpretation Code [facility] ([place]) Comment on above: Performed By: #### C BC, ADIFF, ANEU, HBSAG, HIV, PABO, PABS, VARIS, RUBIS, RPR #### [place] [address] ABS (Gel)on 10-18-2020 ABSC Interp (Gel) Negative Normal [facility] ([place]) Comment on above: Performed By: #### C BC, ADIFF, ANEU, HBSAG, HIV, PABO, PABS, VARIS, RUBIS, RPR #### [place] [address] CBCon 10-18-2020 Erythrocyte distribution width (RBC) [Ratio] 13.8 % Normal 11.5-15.5 [facility] ([place]) Comment on above: Performed By: #### C BC, ADIFF, ANEU, HBSAG, HIV, PABO, PABS, VARIS, RUBIS, RPR #### [place] [address] Hematocrit (Bld) [Volume fraction] 36.7 % Normal 34.0-46.0 [facility] ([place]) Comment on above: Performed By: #### C BC, ADIFF, ANEU, HBSAG, HIV, PABO, PABS, VARIS, RUBIS, RPR #### [place] [address] Hgb 12.5 G/dL Normal 12.0-16.0 [facility] ([place]) Comment on above: Performed By: #### C BC, ADIFF, ANEU, HBSAG, HIV, PABO, PABS, VARIS, RUBIS, RPR #### [facility] [address] [place], [place] [address] MCH (RBC) [Entitic mass] 29.4 pg Normal 27.0-33.0 [facility] ([place]) Comment on above: Performed By: #### C BC, ADIFF, ANEU, HBSAG, HIV, PABO, PABS, VARIS, RUBIS, RPR #### [address] [address] MCHC 34.1 G/dL Normal 32.0-36.0 [facility] ([place]) Comment on above: Performed By: #### C BC, ADIFF, ANEU, HBSAG, HIV, PABO, PABS, VARIS, RUBIS, RPR #### [place] [id number] MCV (RBC) [Entitic vol] 86.3 fL Normal 80.0-99.0 [facility] ([place]) Comment on above: Performed By: #### C BC, ADIFF, ANEU, HBSAG, HIV, PABO, PABS, VARIS, RUBIS, RPR #### [place] [address] Platelet 263 10 3/mcL Normal 150-450 [facility] ([place]) Comment on above: Performed By: #### C BC, ADIFF, ANEU, HBSAG, HIV, PABO, PABS, VARIS, RUBIS, RPR #### [place] [id number] Platelet mean volume (Bld) [Entitic vol] 9.2 fL Normal 6.6-10.5 [facility] ([place]) Comment on above: Performed By: #### C BC, ADIFF, ANEU, HBSAG, HIV, PABO, PABS, VARIS, RUBIS, RPR #### [place] [id number] RBC 4.25 10 6/mcL Normal 4.10-5.30 [facility] ([place]) Comment on above: Performed By: #### C BC, ADIFF, ANEU, HBSAG, HIV, PABO, PABS, VARIS, RUBIS, RPR #### [place] [id number] WBC 13.00 10 3/mcL High 4.50-10.80 [facility] ([place]) Comment on above: Performed By: #### C BC, ADIFF, ANEU, HBSAG, HIV, PABO, PABS, VARIS, RUBIS, RPR #### [address] [address] [address] .Auto Diffon 09-22-2020 Basophil, Absolute 0.00 10 3/mcL Normal 0.00-0.27 Formerly [facility] ([place]) Comment on above: Performed By: #### C BC, ADIFF, ANEU, HBSAG, HIV, PABO, PABS, VARIS, RUBIS, RPR #### [place] [address] Basophils/100 WBC (Bld) 0.2 % Normal 0.0-2.5 [facility] ([place]) Comment on above: Performed By: #### C BC, ADIFF, ANEU, HBSAG, HIV, PABO, PABS, VARIS, RUBIS, RPR #### [place] [address] Eosinophil, Absolute 0.10 10 3/mcL Normal 0.00-0.65 [facility] ([place]) Comment on above: Performed By: #### C BC, ADIFF, ANEU, HBSAG, HIV, PABO, PABS, VARIS, RUBIS, RPR #### [place] [address] Eosinophils/100 WBC (Bld) 0.8 % Normal 0.0-6.0 [facility] ([place]) Comment on above: Performed By: #### C BC, ADIFF, ANEU, HBSAG, HIV, PABO, PABS, VARIS, RUBIS, RPR #### [address] [address] Lymphocyte, Absolute 2.30 10 3/mcL Normal 0.90-4.32 [facility] ([place]) Comment on above: Performed By: #### C BC, ADIFF, ANEU, HBSAG, HIV, PABO, PABS, VARIS, RUBIS, RPR #### [address] [address] Lymphocytes/100 WBC (Bld) 16.2 % Low 20.0-40.0 [facility] ([place]) Comment on above: Performed By: #### C BC, ADIFF, ANEU, HBSAG, HIV, PABO, PABS, VARIS, RUBIS, RPR #### [address] [address] Monocyte, Absolute 0.90 10 3/mcL Normal 0.09-1.40 Formerly [facility] ([place]) Comment on above: Performed By: #### C BC, ADIFF, ANEU, HBSAG, HIV, PABO, PABS, VARIS, RUBIS, RPR #### [address] [address] Monocytes/100 WBC (Bld) 6.4 % Normal 2.0-13.0 Formerly [facility] ([place]) Comment on above: Performed By: #### C BC, ADIFF, ANEU, HBSAG, HIV, PABO, PABS, VARIS, RUBIS, RPR #### [address] [address] Neutrophils/100 WBC (Bld) 76.4 % High 50.0-75.0 [facility] ([place]) Comment on above: Performed By: #### C BC, ADIFF, ANEU, HBSAG, HIV, PABO, PABS, VARIS, RUBIS, RPR #### [address] [address] .NEUABSon 09-22-2020 Neutrophil, Absolute 10.60 10 3/mcL High 2.25-8.10 [facility] ([place]) Comment on above: Performed By: #### C BC, ADIFF, ANEU, HBSAG, HIV, PABO, PABS, VARIS, RUBIS, RPR #### [address] [address] CBCon 09-22-2020 Erythrocyte distribution width (RBC) [Ratio] 13.7 % Normal 11.5-15.5 [facility] ([place]) Comment on above: Performed By: #### C BC, ADIFF, ANEU, HBSAG, HIV, PABO, PABS, VARIS, RUBIS, RPR #### [place] [address] Hematocrit (Bld) [Volume fraction] 35.0 % Normal 34.0-46.0 [facility] ([place]) Comment on above: Performed By: #### C BC, ADIFF, ANEU, HBSAG, HIV, PABO, PABS, VARIS, RUBIS, RPR #### [place] [address] Hgb 12.1 G/dL Normal 12.0-16.0 [facility] ([place]) Comment on above: Performed By: #### C BC, ADIFF, ANEU, HBSAG, HIV, PABO, PABS, VARIS, RUBIS, RPR #### [place] [address] MCH (RBC) [Entitic mass] 29.4 pg Normal 27.0-33.0 [facility] ([place]) Comment on above: Performed By: #### C BC, ADIFF, ANEU, HBSAG, HIV, PABO, PABS, VARIS, RUBIS, RPR #### [place] [address] MCHC 34.5 G/dL Normal 32.0-36.0 [facility] ([place]) Comment on above: Performed By: #### C BC, ADIFF, ANEU, HBSAG, HIV, PABO, PABS, VARIS, RUBIS, RPR #### [place] [address] MCV (RBC) [Entitic vol] 85.4 fL Normal 80.0-99.0 [facility] ([place]) Comment on above: Performed By: #### C BC, ADIFF, ANEU, HBSAG, HIV, PABO, PABS, VARIS, RUBIS, RPR #### [place] [address] Platelet 236 10 3/mcL Normal 150-450 [facility] ([place]) Comment on above: Performed By: #### C BC, ADIFF, ANEU, HBSAG, HIV, PABO, PABS, VARIS, RUBIS, RPR #### [place] [address] Platelet mean volume (Bld) [Entitic vol] 8.4 fL Normal 6.6-10.5 [facility] ([place]) Comment on above: Performed By: #### C BC, ADIFF, ANEU, HBSAG, HIV, PABO, PABS, VARIS, RUBIS, RPR #### [place] [address] RBC 4.10 10 6/mcL Normal 4.10-5.30 [facility] ([place]) Comment on above: Performed By: #### C BC, ADIFF, ANEU, HBSAG, HIV, PABO, PABS, VARIS, RUBIS, RPR #### [place] [address] WBC 13.90 10 3/mcL High 4.50-10.80 [facility] ([place]) Comment on above: Performed By: #### C BC, ADIFF, ANEU, HBSAG, HIV, PABO, PABS, VARIS, RUBIS, RPR #### [place] [address] .Auto Diffon 07-29-2020 Basophil, Absolute 0.00 10 3/mcL Normal 0.00-0.27 Formerly [facility] ([place]) Comment on above: Performed By: #### C BC, ADIFF, ANEU, HBSAG, HIV, PABO, PABS, VARIS, RUBIS, RPR #### [place] [address] Basophils/100 WBC (Bld) 0.3 % Normal 0.0-2.5 [facility] ([place]) Comment on above: Performed By: #### C BC, ADIFF, ANEU, HBSAG, HIV, PABO, PABS, VARIS, RUBIS, RPR #### [place] [address] Eosinophil, Absolute 0.10 10 3/mcL Normal 0.00-0.65 [facility] ([place]) Comment on above: Performed By: #### C BC, ADIFF, ANEU, HBSAG, HIV, PABO, PABS, VARIS, RUBIS, RPR #### [address] [address] Eosinophils/100 WBC (Bld) 0.8 % Normal 0.0-6.0 [facility] ([place]) Comment on above: Performed By: #### C BC, ADIFF, ANEU, HBSAG, HIV, PABO, PABS, VARIS, RUBIS, RPR #### [address] [address] Lymphocyte, Absolute 2.20 10 3/mcL Normal 0.90-4.32 [facility] ([place]) Comment on above: Performed By: #### C BC, ADIFF, ANEU, HBSAG, HIV, PABO, PABS, VARIS, RUBIS, RPR #### [address] [address] Lymphocytes/100 WBC (Bld) 17.0 % Low 20.0-40.0 [facility] ([place]) Comment on above: Performed By: #### C BC, ADIFF, ANEU, HBSAG, HIV, PABO, PABS, VARIS, RUBIS, RPR #### [address] [address] Monocyte, Absolute 0.80 10 3/mcL Normal 0.09-1.40 Formerly [facility] ([place]) Comment on above: Performed By: #### C BC, ADIFF, ANEU, HBSAG, HIV, PABO, PABS, VARIS, RUBIS, RPR #### [address] [address] Monocytes/100 WBC (Bld) 6.2 % Normal 2.0-13.0 [facility] ([place]) Comment on above: Performed By: #### C BC, ADIFF, ANEU, HBSAG, HIV, PABO, PABS, VARIS, RUBIS, RPR #### [address] [address] Neutrophils/100 WBC (Bld) 75.7 % High 50.0-75.0 [facility] ([place]) Comment on above: Performed By: #### C BC, ADIFF, ANEU, HBSAG, HIV, PABO, PABS, VARIS, RUBIS, RPR #### [address] [address] .NEUABSon 07-29-2020 Neutrophil, Absolute 9.70 10 3/mcL High 2.25-8.10 [facility] ([place]) Comment on above: Performed By: #### C BC, ADIFF, ANEU, HBSAG, HIV, PABO, PABS, VARIS, RUBIS, RPR #### [place] [id number] CBCon 07-29-2020 Erythrocyte distribution width (RBC) [Ratio] 13.7 % Normal 11.5-15.5 [facility] ([place]) Comment on above: Performed By: #### C BC, ADIFF, ANEU, HBSAG, HIV, PABO, PABS, VARIS, RUBIS, RPR #### [place] [address] Hematocrit (Bld) [Volume fraction] 36.8 % Normal 34.0-46.0 [facility] ([place]) Comment on above: Performed By: #### C BC, ADIFF, ANEU, HBSAG, HIV, PABO, PABS, VARIS, RUBIS, RPR #### [place] [address] Hgb 12.0 G/dL Normal 12.0-16.0 [facility] ([place]) Comment on above: Performed By: #### C BC, ADIFF, ANEU, HBSAG, HIV, PABO, PABS, VARIS, RUBIS, RPR #### [place] [address] MCH (RBC) [Entitic mass] 28.7 pg Normal 27.0-33.0 [facility] ([place]) Comment on above: Performed By: #### C BC, ADIFF, ANEU, HBSAG, HIV, PABO, PABS, VARIS, RUBIS, RPR #### [place] [address] MCHC 32.5 G/dL Normal 32.0-36.0 [facility] ([place]) Comment on above: Performed By: #### C BC, ADIFF, ANEU, HBSAG, HIV, PABO, PABS, VARIS, RUBIS, RPR #### [place] [id number] MCV (RBC) [Entitic vol] 88.3 fL Normal 80.0-99.0 [facility] ([place]) Comment on above: Performed By: #### C BC, ADIFF, ANEU, HBSAG, HIV, PABO, PABS, VARIS, RUBIS, RPR #### [place] [address] Platelet 225 10 3/mcL Normal 150-450 [facility] ([place]) Comment on above: Performed By: #### C BC, ADIFF, ANEU, HBSAG, HIV, PABO, PABS, VARIS, RUBIS, RPR #### [place] [address] Platelet mean volume (Bld) [Entitic vol] 8.3 fL Normal 6.6-10.5 [facility] ([place]) Comment on above: Performed By: #### C BC, ADIFF, ANEU, HBSAG, HIV, PABO, PABS, VARIS, RUBIS, RPR #### [place] [id number] RBC 4.16 10 6/mcL Normal 4.10-5.30 [facility] ([place]) Comment on above: Performed By: #### C BC, ADIFF, ANEU, HBSAG, HIV, PABO, PABS, VARIS, RUBIS, RPR #### [place] [id number] WBC 12.70 10 3/mcL High 4.50-10.80 [facility] ([place]) Comment on above: Performed By: #### C BC, ADIFF, ANEU, HBSAG, HIV, PABO, PABS, VARIS, RUBIS, RPR #### [place] [address] EBM5Enx 07-29-2020 Glucose [Mass/Vol] 89 mg/dL Normal 70-139 [facility] ([place]) Comment on above: Performed By: #### C BC, ADIFF, ANEU, HBSAG, HIV, PABO, PABS, VARIS, RUBIS, RPR #### [address] [address] .Auto Diffon 07-01-2020 Basophil, Absolute 0.00 10 3/mcL Normal 0.00-0.27 Formerly [facility] ([place]) Comment on above: Performed By: #### C BC, ADIFF, ANEU, HBSAG, HIV, PABO, PABS, VARIS, RUBIS, RPR #### [address] [address] Basophils/100 WBC (Bld) 0.4 % Normal 0.0-2.5 [facility] ([place]) Comment on above: Performed By: #### C BC, ADIFF, ANEU, HBSAG, HIV, PABO, PABS, VARIS, RUBIS, RPR #### [address] [address] Eosinophil, Absolute 0.10 10 3/mcL Normal 0.00-0.65 [facility] ([place]) Comment on above: Performed By: #### C BC, ADIFF, ANEU, HBSAG, HIV, PABO, PABS, VARIS, RUBIS, RPR #### [address] [address] Eosinophils/100 WBC (Bld) 1.0 % Normal 0.0-6.0 [facility] ([place]) Comment on above: Performed By: #### C BC, ADIFF, ANEU, HBSAG, HIV, PABO, PABS, VARIS, RUBIS, RPR #### [address] [address] Lymphocyte, Absolute 2.40 10 3/mcL Normal 0.90-4.32 [facility] ([place]) Comment on above: Performed By: #### C BC, ADIFF, ANEU, HBSAG, HIV, PABO, PABS, VARIS, RUBIS, RPR #### [address] [address] Lymphocytes/100 WBC (Bld) 19.2 % Low 20.0-40.0 [facility] ([place]) Comment on above: Performed By: #### C BC, ADIFF, ANEU, HBSAG, HIV, PABO, PABS, VARIS, RUBIS, RPR #### [address] [address] Monocyte, Absolute 0.80 10 3/mcL Normal 0.09-1.40 [facility]ly [facility] ([place]) Comment on above: Performed By: #### C BC, ADIFF, ANEU, HBSAG, HIV, PABO, PABS, VARIS, RUBIS, RPR #### [place] [id number] Monocytes/100 WBC (Bld) 6.4 % Normal 2.0-13.0 [facility] ([place]) Comment on above: Performed By: #### C BC, ADIFF, ANEU, HBSAG, HIV, PABO, PABS, VARIS, RUBIS, RPR #### [place] [id number] Neutrophils/100 WBC (Bld) 73.0 % Normal 50.0-75.0 [facility] ([place]) Comment on above: Performed By: #### C BC, ADIFF, ANEU, HBSAG, HIV, PABO, PABS, VARIS, RUBIS, RPR #### [address] [address] .NEUABSon 07-01-2020 Neutrophil, Absolute 9.00 10 3/mcL High 2.25-8.10 [facility] ([place]) Comment on above: Performed By: #### C BC, ADIFF, ANEU, HBSAG, HIV, PABO, PABS, VARIS, RUBIS, RPR #### [address] [address] CBCon 07-01-2020 Erythrocyte distribution width (RBC) [Ratio] 14.1 % Normal 11.5-15.5 [facility] ([place]) Comment on above: Performed By: #### C BC, ADIFF, ANEU, HBSAG, HIV, PABO, PABS, VARIS, RUBIS, RPR #### [place] [address] Hematocrit (Bld) [Volume fraction] 35.9 % Normal 34.0-46.0 [facility] ([place]) Comment on above: Performed By: #### C BC, ADIFF, ANEU, HBSAG, HIV, PABO, PABS, VARIS, RUBIS, RPR #### [address] [address] Hgb 11.7 G/dL Low 12.0-16.0 [facility] ([place]) Comment on above: Performed By: #### C BC, ADIFF, ANEU, HBSAG, HIV, PABO, PABS, VARIS, RUBIS, RPR #### [place] [id number] MCH (RBC) [Entitic mass] 28.5 pg Normal 27.0-33.0 [facility] ([place]) Comment on above: Performed By: #### C BC, ADIFF, ANEU, HBSAG, HIV, PABO, PABS, VARIS, RUBIS, RPR #### [place] [id number] MCHC 32.6 G/dL Normal 32.0-36.0 [facility] ([place]) Comment on above: Performed By: #### C BC, ADIFF, ANEU, HBSAG, HIV, PABO, PABS, VARIS, RUBIS, RPR #### [place] [id number] MCV (RBC) [Entitic vol] 87.4 fL Normal 80.0-99.0 [facility] ([place]) Comment on above: Performed By: #### C BC, ADIFF, ANEU, HBSAG, HIV, PABO, PABS, VARIS, RUBIS, RPR #### [place] [id number] Platelet 234 10 3/mcL Normal 150-450 [facility] ([place]) Comment on above: Performed By: #### C BC, ADIFF, ANEU, HBSAG, HIV, PABO, PABS, VARIS, RUBIS, RPR #### [place] [id number] Platelet mean volume (Bld) [Entitic vol] 8.7 fL Normal 6.6-10.5 [facility] ([place]) Comment on above: Performed By: #### C BC, ADIFF, ANEU, HBSAG, HIV, PABO, PABS, VARIS, RUBIS, RPR #### [place] [id number] RBC 4.11 10 6/mcL Normal 4.10-5.30 [facility] ([place]) Comment on above: Performed By: #### C BC, ADIFF, ANEU, HBSAG, HIV, PABO, PABS, VARIS, RUBIS, RPR #### [place] [id number] WBC 12.40 10 3/mcL High 4.50-10.80 [facility] ([place]) Comment on above: Performed By: #### C BC, ADIFF, ANEU, HBSAG, HIV, PABO, PABS, VARIS, RUBIS, RPR #### [place] [address] PABOon 06-01-2020 PABO/Rh Interp Positive Invalid Interpretation Code [facility] ([place]) Comment on above: Performed By: #### C BC, ADIFF, ANEU, HBSAG, HIV, PABO, PABS, VARIS, RUBIS, RPR #### [place] [address] PABSon 06-01-2020 PABS Interp Negative Normal [facility] ([place]) Comment on above: Performed By: #### C BC, ADIFF, ANEU, HBSAG, HIV, PABO, PABS, VARIS, RUBIS, RPR #### [place] [address] RPRon 06-01-2020 Reagin Ab RPR Ql (S) Non-Reactive Normal Non-Reactive [facility] ([place]) Comment on above: Result Comment: The RPR test is a non-treponemal assay useful as an aid in the diagnosis of primary and secondary syphilis. It converts to positive generally within 2 weeks after the appearance of a lesion. This test is also useful for monitoring response to antibiotic therapy. A positive RPR screening test will be followed by the FTA ABS test. False positive RPR tests may occur in 1) patients with underlying autoimmune disorders, 2) elderly patients, 3) , and 4) other conditions with abnormal serum globulins. Performed By: #### C BC, ADIFF, ANEU, HBSAG, HIV, PABO, PABS, VARIS, RUBIS, RPR #### [place] [address] RUBISon 06-01-[address] Negative Normal Positive [facility] ([place]) Comment on above: Result Comment: This immune status assay detects IgM and/or IgG antibody to Rubella. Interpret results in conjunction with clinical history. POS: Antibody detected; exposure at undetermined recent or distant time. If clinically indicated, order Rubella IGM to rule out recent infection. NEG: No antibody detected. Performed By: #### C BC, ADIFF, ANEU, HBSAG, HIV, PABO, PABS, VARIS, RUBIS, RPR #### [place] [address] VARISon 06-01-[address] Positive Normal [facility] ([place]) Comment on above: Result Comment: This immune status assay detects antibody to Varicella Zoster virus. Interpret results in conjunction with clinical history. Positive: Reactive for antibodies to Varicella IgG. If clinically indicated, order Varicella IGM to rule out recent infection. Equivocal: Equivocal for antibodies to Varicella IgG. Suggest repeat testing in 10-14 days. Negative: Non-reactive for antibodies to Varicella IgG. Performed By: #### C BC, ADIFF, ANEU, HBSAG, HIV, PABO, PABS, VARIS, RUBIS, RPR #### [address] [address] .Auto Diffon 05-31-2020 Basophil, Absolute 0.00 10 3/mcL Normal 0.00-0.27 [facility]ly [facility] ([place]) Comment on above: Performed By: #### C BC, ADIFF, ANEU, HBSAG, HIV, PABO, PABS, VARIS, RUBIS, RPR #### [address] [address] Basophils/100 WBC (Bld) 0.3 % Normal 0.0-2.5 [facility] ([place]) Comment on above: Performed By: #### C BC, ADIFF, ANEU, HBSAG, HIV, PABO, PABS, VARIS, RUBIS, RPR #### [address] [address] Eosinophil, Absolute 0.10 10 3/mcL Normal 0.00-0.65 [facility] ([place]) Comment on above: Performed By: #### C BC, ADIFF, ANEU, HBSAG, HIV, PABO, PABS, VARIS, RUBIS, RPR #### [address] [address] Eosinophils/100 WBC (Bld) 1.0 % Normal 0.0-6.0 [facility] ([place]) Comment on above: Performed By: #### C BC, ADIFF, ANEU, HBSAG, HIV, PABO, PABS, VARIS, RUBIS, RPR #### [address] [address] Lymphocyte, Absolute 2.30 10 3/mcL Normal 0.90-4.32 [facility] ([place]) Comment on above: Performed By: #### C BC, ADIFF, ANEU, HBSAG, HIV, PABO, PABS, VARIS, RUBIS, RPR #### [address] [address] Lymphocytes/100 WBC (Bld) 19.9 % Low 20.0-40.0 [facility] ([place]) Comment on above: Performed By: #### C BC, ADIFF, ANEU, HBSAG, HIV, PABO, PABS, VARIS, RUBIS, RPR #### [address] [address] Monocyte, Absolute 0.70 10 3/mcL Normal 0.09-1.40 [facility] ([place]) Comment on above: Performed By: #### C BC, ADIFF, ANEU, HBSAG, HIV, PABO, PABS, VARIS, RUBIS, RPR #### [address] [address] Monocytes/100 WBC (Bld) 5.9 % Normal 2.0-13.0 [facility] ([place]) Comment on above: Performed By: #### C BC, ADIFF, ANEU, HBSAG, HIV, PABO, PABS, VARIS, RUBIS, RPR #### [place] [id number] Neutrophils/100 WBC (Bld) 72.9 % Normal 50.0-75.0 [facility] ([place]) Comment on above: Performed By: #### C BC, ADIFF, ANEU, HBSAG, HIV, PABO, PABS, VARIS, RUBIS, RPR #### [address] [address] .NEUABSon 05-31-2020 Neutrophil, Absolute 8.50 10 3/mcL High 2.25-8.10 [facility] ([place]) Comment on above: Performed By: #### C BC, ADIFF, ANEU, HBSAG, HIV, PABO, PABS, VARIS, RUBIS, RPR #### [address] [address] CBCon 05-31-2020 Erythrocyte distribution width (RBC) [Ratio] 14.1 % Normal 11.5-15.5 [facility] ([place]) Comment on above: Performed By: #### C BC, ADIFF, ANEU, HBSAG, HIV, PABO, PABS, VARIS, RUBIS, RPR #### [place] [id number] Hematocrit (Bld) [Volume fraction] 36.9 % Normal 34.0-46.0 [facility] ([place]) Comment on above: Performed By: #### C BC, ADIFF, ANEU, HBSAG, HIV, PABO, PABS, VARIS, RUBIS, RPR #### [address] [address] Hgb 12.6 G/dL Normal 12.0-16.0 [facility] ([place]) Comment on above: Performed By: #### C BC, ADIFF, ANEU, HBSAG, HIV, PABO, PABS, VARIS, RUBIS, RPR #### [address] [address] MCH (RBC) [Entitic mass] 29.0 pg Normal 27.0-33.0 [facility] ([place]) Comment on above: Performed By: #### C BC, ADIFF, ANEU, HBSAG, HIV, PABO, PABS, VARIS, RUBIS, RPR #### [place] [id number] MCHC 34.1 G/dL Normal 32.0-36.0 [facility] ([place]) Comment on above: Performed By: #### C BC, ADIFF, ANEU, HBSAG, HIV, PABO, PABS, VARIS, RUBIS, RPR #### [place] [address] MCV (RBC) [Entitic vol] 84.8 fL Normal 80.0-99.0 [facility] ([place]) Comment on above: Performed By: #### C BC, ADIFF, ANEU, HBSAG, HIV, PABO, PABS, VARIS, RUBIS, RPR #### [place] [address] Platelet 208 10 3/mcL Normal 150-450 [facility] ([place]) Comment on above: Performed By: #### C BC, ADIFF, ANEU, HBSAG, HIV, PABO, PABS, VARIS, RUBIS, RPR #### [place] [id number] Platelet mean volume (Bld) [Entitic vol] 8.8 fL Normal 6.6-10.5 [facility] ([place]) Comment on above: Performed By: #### C BC, ADIFF, ANEU, HBSAG, HIV, PABO, PABS, VARIS, RUBIS, RPR #### [place] [id number] RBC 4.35 10 6/mcL Normal 4.10-5.30 [facility] ([place]) Comment on above: Performed By: #### C BC, ADIFF, ANEU, HBSAG, HIV, PABO, PABS, VARIS, RUBIS, RPR #### [place] [id number] WBC 11.60 10 3/mcL High 4.50-10.80 [facility] ([place]) Comment on above: Performed By: #### C BC, ADIFF, ANEU, HBSAG, HIV, PABO, PABS, VARIS, RUBIS, RPR #### [place] [id number] HBSAGon 05-31-2020 Hep B Surf Ag Non-Reactive Normal Non-Reactive [facility] ([place]) Comment on above: Performed By: #### C BC, ADIFF, ANEU, HBSAG, HIV, PABO, PABS, VARIS, RUBIS, RPR #### [place] [id number] HIVon 05-31-2020 HIV 1/2 Ab Normal Non-Reactive [facility] ([place]) Comment on above: Result Comment: Non- Reactive Specimen is negative for anti-HIV-1 and anti-HIV-2. Performed By: #### C BC, ADIFF, ANEU, HBSAG, HIV, PABO, PABS, VARIS, RUBIS, RPR #### [place] [id number] OPERATIVE PROCEDURESon 06-19 Protein mass [facility] OPERATIVE REPORT NAME ACCOUNT SEX AGE ADMIT DISCHARGE PT MED. RECORD# NUMBER DATE DATE TYPE [id number] F 28 06/06/18 EMA SHEPARD [id number] ROOM: [facility] DATE OF : 1990 DICTATING PHYSICIAN: Maritza Palacios DATE OF SURGERY: June 06, 2018 SURGEON: Maritza Palacios MD [employer] OFFICER: DEVIN Irvin ANESTHESIOLOGIST: Juventino Almonte CRNA/Jeanine Fink MD ANESTHETIC: PREOPERATIVE DIAGNOSIS: POSTOPERATIVE DIAGNOSES: Incarcerated ventral/umbilical hernias. OPERATION PERFORMED: Mesh repair of multiple incarcerated ventral and umbilical hernias. COMPLICATIONS: ESTIMATED BLOOD LOSS: 10 mL. FLUIDS GIVEN: 1802 mL of crystalloid. SPECIMEN: None. DISPOSITION: Stable to recovery. INDICATIONS: Ema Brooks is a 28-year-old lady with increasingly symptomatic bulge close to the umbilical area. DESCRIPTION OF OPERATION: After informed consent, intravenous fluids, and antibiotics, she was brought to the operating room and placed on the table in the supine position with adequate padding at pressure points. She was given anesthesia, prepped and draped in the usual sterile fashion and timeout and verification done. The abdomen was carefully palpated, demarcated, and then an incision made from the supraumbilical Page 1 of 2 [place]w BROOKS to the infraumbilical area. The wound edges were retracted with Gelpi retractors and oozing points cauterized. The dissection was carried down to the fascial level and the umbilical skin surface was dissected away from the underlying bulge, which was clearly a hernia which was not reducible. Adjacent to this was a second bulge through the fascia and around this there were 2 ventral bulges which were small. These were all carefully dissected free. The largest hernia sac, which was at the umbilicus, was incised and the underside palpate to make sure that no bowel or omentum was included. The hernia sacs were carefully freed up some surrounding tissue and the fascial edges nicely grasped with Allis clamps and elevated, and the underside again palpated. The smaller paraumbilical hernia was reduced and the edges brought in approximation with interrupted #1 PDS. The largest hernia sac was dissected free with electrocautery, and the wound edges cauterized and then inverted and the hernia defect itself had sutures of #1 PDS placed. Then the underside was palpated. Circumferential #1 PDS sutures were placed in opposing areas around the entire area so that there was a wide rim and then additional #1 PDS sutures were placed close to the hernia defects. Then an Omley mesh patch, which had been soaked in antibiotic solution, was placed into this area. This was a 6 x 6 inch piece of mesh and had been soaked in antibiotic solution. This was then fastened down centrally after the hernia defect had been closed. Then the outlying sutures were also positioned to hold the mesh appropriately. Then the sutures were used to elevate the fascia so that intervening sutures of #1 PDS could be placed circumferentially to provide four rows of excellent reinforcement with #1 PDS and additional 0 Novafil was placed circumferentially as well. This provided excellent repair and excellent hemostasis. The mesh was then trimmed circumferentially, and the wound was copiously irrigated with warm antibiotic solution. The umbilicus was repositioned with #1 PDS and the deeper layers approximated to the wall with #1 PDS to eliminate empty spaces. The skin edges were approximated with inverted interrupted #1 PDS and inverted interrupted 2-0 PDS through subcutaneous and subcuticular layers. Benzoin, Steri-Strips, and sterile dressings and an abdominal binder were placed. The patient tolerated the procedure well, was awakened, sent to recovery room in good condition. The case will be discussed with the patient and her spouse when the patient was more awake. Dictated By: Maritza Palacios MD 06/06/18 16:39 JOB #: [id number] Transcribed By: am 06/06/18 16:43 Electronically signed by: E-Sign Dr. Maritza Palacios MD 06/18/18 23:36 Page 2 of 2 CARY, Operative Report EMA Normal [facility] URINEon 06-06-2018 EXTERNAL QC DONE? YES Normal [facility] Comment on above: Performed By: #### [id number] ####[facility],[address] [place] [address] INTERNAL QC PASS Normal [facility] Comment on above: Performed By: #### [id number] ####[facility],[address] [place] [address] UR Negative Normal NEGATIVE [facility] Comment on above: Performed By: #### [id number] ####[facility],[address] [place] [address] Vital Signs Date Time Vital Sign Value Performing Clinician Facility 02-16-2025 14:08-0400 Body height 152.4 cm Kan Oliver MD Work Phone: [facility] 02-16-2025 14:08-0400 Body mass index (BMI) [Ratio] 62.3 kg/m2 Kan Oliver MD Work Phone: [facility] 02-16-2025 14:08-0400 Body temperature 98.71 [degF] Kan Oliver MD Work Phone: [facility] 02-16-2025 14:08-0400 Body weight 144.7 kg Kan Oliver MD Work Phone: [facility] 02-16-2025 14:08-0400 Diastolic blood pressure 62 mm[Hg] Kan Oliver MD Work Phone: [facility] 02-16-2025 14:08-0400 Heart rate 64 /min Kan Oliver MD Work Phone: [facility] 02-16-2025 14:08-0400 Systolic blood pressure 121 mm[Hg] Kan Oliver MD Work Phone: [facility] 02-07-2024 15:10-0400 Body height 152.4 cm Christiana Goodson MD Work Phone: [facility] 02-07-2024 15:10-0400 Body mass index (BMI) [Ratio] 66.6 kg/m2 Christiana Goodson MD Work Phone: [facility] 02-07-2024 15:10-0400 Body temperature 59 [degF] Christiana Goodson MD Work Phone: [facility] 02-07-2024 15:10-0400 Body weight 154.68 kg Christiana Goodson MD Work Phone: [facility] 02-07-2024 15:10-0400 Diastolic blood pressure 52 mm[Hg] Christiana Goodson MD Work Phone: [facility] 02-07-2024 15:10-0400 Systolic blood pressure 119 mm[Hg] Christiana Goodson MD Work Phone: [facility] 02-07-2024 15:07-0400 Body height 152.4 cm Alissa Guidry [employer].DIRECTOR OF EMPLOYEE DEVELOPMENT Work Phone: [facility] 02-07-2024 15:07-0400 Body mass index (BMI) [Ratio] 66.4 kg/m2 Alissa Chao [employer].DIRECTOR OF EMPLOYEE DEVELOPMENT Work Phone: [facility] 02-07-2024 15:07-0400 Body weight 154.22 kg Alissa Chao [employer].DIRECTOR OF EMPLOYEE DEVELOPMENT Work Phone: [facility] 02-07-2024 15:07-0400 Diastolic blood pressure 62 mm[Hg] Alissa Chao [employer].DIRECTOR OF EMPLOYEE DEVELOPMENT Work Phone: [facility] 02-07-2024 15:07-0400 Heart rate 66 /min Alissa Guidry [employer].DIRECTOR OF EMPLOYEE DEVELOPMENT Work Phone: [facility] 02-07-2024 15:07-0400 Systolic blood pressure 117 mm[Hg] Alissa Guidry [employer].DIRECTOR OF EMPLOYEE DEVELOPMENT Work Phone: [facility] 02-07-2024 13:20-0400 Body height 152.4 cm Kan Oliver MD Work Phone: [facility] 02-07-2024 13:20-0400 Body mass index (BMI) [Ratio] 66.4 kg/m2 Kan Oliver MD Work Phone: [facility] 02-07-2024 13:20-0400 Body temperature 97.59 [degF] Kan Oliver MD Work Phone: [facility] 02-07-2024 13:20-0400 Body weight 154.22 kg Kan Oliver MD Work Phone: [facility] 02-07-2024 13:20-0400 Diastolic blood pressure 62 mm[Hg] Kan Oliver MD Work Phone: [facility] 02-07-2024 13:20-0400 Heart rate 66 /min Kan Oliver MD Work Phone: [facility] 02-07-2024 13:20-0400 Systolic blood pressure 117 mm[Hg] Kan Oliver MD Work Phone: [facility] 01-03-2024 15:02-0400 Body height 162.6 cm Christiana Goodson MD Work Phone: [facility] 01-03-2024 15:02-0400 Body mass index (BMI) [Ratio] 62.65 kg/m2 Christiana Goodson MD Work Phone: [facility] 01-03-2024 15:02-0400 Body weight 165.56 kg Christiana Goodson MD Work Phone: [facility] 01-03-2024 15:02-0400 Diastolic blood pressure 58 mm[Hg] Christiana Goodson MD Work Phone: [facility] 01-03-2024 15:02-0400 Heart rate 63 /min Christiana Goodson MD Work Phone: [facility] 01-03-2024 15:02-0400 Systolic blood pressure 114 mm[Hg] Christiana Goodson MD Work Phone: [facility] 09-28-2023 09:15-0400 Body height 162.6 cm Daniel Simon MD Work Phone: [facility] 09-28-2023 09:15-0400 Body temperature 97.2 [degF] Daniel Simon MD Work Phone: [facility] 09-28-2023 09:15-0400 Body weight 163.75 kg Daniel Simon MD Work Phone: [facility] 09-28-2023 09:15-0400 Diastolic blood pressure 80 mm[Hg] Daniel Simon MD Work Phone: [facility] 09-28-2023 09:15-0400 Heart rate 81 /min Daniel Simon MD Work Phone: [facility] 09-28-2023 09:15-0400 SaO2% (BldA) [Mass fraction] 99 % Daniel Simon MD Work Phone: [facility] 09-28-2023 09:15-0400 Systolic blood pressure 136 mm[Hg] Daniel Simon MD Work Phone: [facility] 08-31-2023 15:51-0400 Body height 162.6 cm Daniel Simon MD Work Phone: [facility] 08-31-2023 15:51-0400 Body temperature 97.39 [degF] Daniel Simon MD Work Phone: [facility] 08-31-2023 15:51-0400 Body weight 163.75 kg Daniel Simon MD Work Phone: [facility] 08-31-2023 15:51-0400 Diastolic blood pressure 82 mm[Hg] Daniel Simon MD Work Phone: [facility] 08-31-2023 15:51-0400 Heart rate 89 /min Daniel Simon MD Work Phone: [facility] 08-31-2023 15:51-0400 SaO2% (BldA) [Mass fraction] 99 % Daniel Simon MD Work Phone: [facility] 08-31-2023 15:51-0400 Systolic blood pressure 142 mm[Hg] Daniel Simon MD Work Phone: [facility] 03-26-2023 13:10-0400 Body temperature 98.2 [degF] Dr. Jeff Foster Work Phone: [facility] 03-26-2023 13:10-0400 Diastolic blood pressure 64 mm[Hg] Dr. Jeff Foster Work Phone: [facility] 03-26-2023 13:10-0400 Heart rate 70 /min Dr. Jeff Foster Work Phone: [facility] 03-26-2023 13:10-0400 Respiratory rate 17 /min Dr. Jeff Foster Work Phone: [facility] 03-26-2023 13:10-0400 SaO2% (BldA) [Mass fraction] 98 % Dr. Jeff Foster Work Phone: [facility] 03-26-2023 13:10-0400 Systolic blood pressure 116 mm[Hg] Dr. Jeff Foster Work Phone: [facility] 03-24-2023 14:39-0400 Body height 162.[address] Jeff Foster Work Phone: [facility] 03-24-2023 14:39-0400 Body weight [address] Jeff Foster Work Phone: [facility] 03-23-2023 21:30-0400 Body mass index (BMI) [Ratio] 58.3 kg/m2 Dr. Jeff Foster Work Phone: [facility] 03-23-2023 20:17-0400 Body temperature 99.9 [degF] [facility] 03-23-2023 20:17-0400 Diastolic blood pressure 69 mm[Hg] [facility] 03-23-2023 20:17-0400 Heart rate 90 /min [facility] 03-23-2023 20:17-0400 Respiratory rate 25 /min [facility] 03-23-2023 20:17-0400 SaO2% (BldA) [Mass fraction] 97 % [facility] 03-23-2023 20:17-0400 Systolic blood pressure 130 mm[Hg] [facility] 03-23-2023 18:05-0400 Body height 162.56 cm [facility] 03-23-2023 18:05-0400 Body mass index (BMI) [Ratio] 59.9 kg/m2 [facility] 03-23-2023 18:05-0400 Body weight 158.3 kg [facility] Encounters Encounter Date Encounter Type Care Provider Facility Start: 02-16-2025 End: 02-16-2025 Patient encounter procedure Kan Oliver MD Work Phone: General Surgery Comment on above: Incisional hernia, w ithout obstruction or gangrene (Primary Dx); Morbid obesity (HCC); Dietary counseling and surveillance Start: 02-16-2025 End: 02-16-2025 ambulatory KAN OLIVER Facility:[facility] Start: 02-16-2025 End: 02-16-2025 Subsequent hospital visit by physician Ct 2 Main Qb (I-Stat) Radiology Comment on above: Incisional hernia, w ithout obstruction or gangrene [K43.2] Start: 01-22-2025 End: 01-22-2025 Telephone encounter Dean Clark LPN General Surgery Comment on above: Patient Question Start: 12-24-2024 End: 12-24-2024 Telephone encounter Christiana Goodson MD Work Phone: Plastic Surgery Start: 04-01-2024 End: 04-01-2024 Telephone encounter Alissa Guidry APRNNESTOR Work Phone: General Surgery Comment on above: Patient Update Start: 03-28-2024 End: 03-28-2024 Telephone encounter Alissa Guidry APRNNESTOR Work Phone: General Surgery Comment on above: Patient Update Start: 2024 End: 2024 Telephone encounter Alissa Guidry APRMianDIRECTOR OF EMPLOYEE DEVELOPMENT Work Phone: General Surgery Comment on above: Patient Update Start: 02-12-2024 End: 02-12-2024 Admission to same day surgery center Alissa Guidry APRNElizabethDIRECTOR OF EMPLOYEE DEVELOPMENT Work Phone: General Surgery Comment on above: Vitamin D deficiency (Primary Dx); Class 3 severe obesity due to excess calories with body mass index (BMI) of 60.0 to 69.9 in adult, unspecified whether serious comorbidity present (HCC) Start: 02-12-2024 End: 02-12-2024 Telemedicine consultation with patient Alissa Guidry APRN.DIRECTOR OF EMPLOYEE DEVELOPMENT Work Phone: General Surgery Start: 02-07-2024 End: 02-07-2024 Patient encounter procedure Alissa Guidry APRN.DIRECTOR OF EMPLOYEE DEVELOPMENT Work Phone: General Surgery Comment on above: Class 3 severe obesi ty due to excess calories with body mass index (BMI) of 60.0 to 69.9 in adult, unspecified whether serious comorbidity present (HCC) (Primary Dx); Dietary counseling and surveillance Class 3 severe obesi ty with body mass index (BMI) of 60.0 to 69.9 in adult, unspecified obesity type, unspecified whether serious comorbidity present (HCC) (Primary Dx) Incisional hernia, w ithout obstruction or gangrene (Primary Dx); Morbid obesity (HCC) Start: 01-31-2024 End: 01-31-2024 Telephone encounter Maryjane Merino MA General Surgery Comment on above: clinic prep Start: 01-18-2024 ambulatory Tracy (Divine) Nguyen RN NURSE EXCELSIOR CUTTER Comment on above: Abdominal Pain Start: 01-03-2024 End: 01-03-2024 Patient encounter procedure Christiana Goodson MD Work Phone: Plastic Surgery Comment on above: Pannus, abdominal (P rimary Dx) Start: 01-03-2024 Chart abstracting Christiana Goodson MD Work Phone: Plastic Surgery Comment on above: PHOTOS TAKEN Start: 10-24-2023 Telephone encounter Kan burk MD Work Phone: General Surgery Comment on above: Appointment Start: 09-28-2023 End: 09-28-2023 Patient encounter procedure Daniel Simon MD Work Phone: General Surgery Comment on above: Incisional hernia, w ithout obstruction or gangrene (Primary Dx) Start: 09-21-2023 End: 09-21-2023 Subsequent hospital visit by physician [facility] W[facility] Cat Scan Comment on above: Incisional hernia, w ithout obstruction or gangrene [K43.2] Start: 09-10-2023 Telephone encounter Daniel Simon MD Work Phone: General Surgery Comment on above: Patient Update (Aski ng if we received the medical records from [place]) Start: 08-31-2023 End: 08-31-2023 Patient encounter procedure Daniel Simon MD Work Phone: General Surgery Comment on above: Incisional hernia, w ithout obstruction or gangrene (Primary Dx) Start: 08-13-2023 ambulatory Stacey gambino APRN.CNP Work Phone: Provider Adult Start: 03-26-2023 Non-patient / Non-visit Dr. Ivet Foster Work Phone: [facility] Work Phone: Start: 03-25-2023 Non-patient / Non-visit Dr. Ivet Foster Work Phone: [facility] Work Phone: Start: 03-24-2023 Non-patient / Non-visit Dr. Ivet Foster Work Phone: [facility] Work Phone: Start: 03-23-2023 Non-patient / Non-visit Dr. Ivet Foster Work Phone: [facility] Work Phone: Start: 03-23-2023 End: 03-26-2023 Evaluation and management of inpatient [facility] Work Phone: Start: 06-06-2018 End: 06-06-2018 Patient encounter procedure MARITZA PALACIOS [facility] Start: 12-26-2016 Ambulatory NANCIE BRUSH Facility :B Procedures Date Procedure Procedure Detail Performing Clinician Start: 02-16-2025 Ct abdomen & pelvis w/o contrast material Alissa Fisher APRN.DIRECTOR OF EMPLOYEE DEVELOPMENT Work Phone: Start: 03-26-2023 Computed tomography of abdomen and pelvis with contrast Dr. Jeff Foster Work Phone: Plan of Treatment Date Care Activity Detail Author Start: 06-01-2025 End: 06-01-2025 Patient encounter procedure 06/01/2025 3:50 PM EST Office Visit General Surgery [address] [place] [address] Kan Oliver MD [address] [place], [place] [id number] Umbilical hernia General Surgery Comment on above: Umbilical hernia Start: 02-16-2025 End: 02-16-2025 Patient encounter procedure Radiology Comment on above: Incisional hernia, w ithout obstruction or gangrene [K43.2] [facility]ili Start: 02-09-2025 Influenza vaccination Influenz a Vaccine (#1) [facility] Start: 02-12-2024 End: 02-12-2024 Admission to same day surgery center 02/12/2024 1:00 PM EDT [facility] General Surgery [address] [place] [id number] Alissa Guidry APRN.CNP [address] [address] Provider Phone Call General Surgery Comment on above: Provider Phone Call Start: 02-10-2024 Covid-19 Vaccine () Covid-19 Vaccine () [facility] Start: 02-10-2024 Covid-19 Vaccine () Covid-19 Vaccine () [facility] Start: 02-10-2024 Influenza vaccination C [facility] Start: 02-07-2024 End: 05-08-2024 25-hydroxyvitamin D3 [Mass/volume] in Serum or Plasma [facility] Work Phone: Comment on above: Expected: 02/07/2024 , Expires: 05/08/2024 Start: 02-07-2024 End: 05-08-2024 Hemoglobin A1c in Blood [facility] Comment on above: Expected: 02/07/2024 , Expires: 05/08/2024 Start: 02-07-2024 End: 02-07-2024 Patient encounter procedure Plastic Surgery Comment on above: discuss surgery afte r general surgery Incisional Hernia Start: 02-06-2024 End: 02-06-2024 Patient encounter procedure 02/06/2024 1:30 PM EDT Office Visit General Surgery [address] [place] [phone] Kan Oliver MD [address] [place], [place] [id number] Incisional Hernia General Surgery Comment on above: Incisional Hernia Start: 12-20-2023 End: 12-20-2023 Patient encounter procedure 12/20/2023 4:15 PM EDT Office Visit Plastic Surgery [address] [address] Christiana Goodson MD [address] [place] [address] consult Plastic Surgery Comment on above: consult Start: 06-11-2023 Behavioral Health Screening Behavioral Health Screening [facility] Start: 06-11-2023 Depression Assessment Depression Ass essment [facility] Start: 03-28-2023 [facility] Start: 03-27-2023 Blood chemistry [facility] Start: 03-26-2023 Patient discharge [facility] Start: 03-23-2023 Assessment of risk o f venous thromboembolism [facility] Start: 03-23-2023 Insertion of cathete r into peripheral vein [facility] Start: 03-23-2023 Oxygen therapy [facility] Start: 03-23-2023 Providing care accor ding to standard [facility] Start: 03-23-2023 Provision of activit y privileges [facility] Start: 03-23-2023 [facility] Start: 03-23-2023 Following clinical p athway protocol [facility] Start: 03-23-2023 Verification routine [facility] Start: 03-23-2023 Admission procedure [facility] Start: 03-23-2023 Hospital admission, emergency, from emergency room, medical nature [facility] Start: 03-23-2023 End: 03-23-2023 Blood culture [facility] Start: 03-23-2023 End: 03-23-2023 [facility] Start: 03-23-2023 Bacteria identified in Blood by Culture Blood Culture [facility] Start: 02-09-2023 Covid-19 Vaccine ( season) Covid-19 Vaccine ( season) [facility] Start: 02-09-2023 Influenza vaccination Influenz a Vaccine (#1) [facility] Start: 2019 Screening for malign ant neoplasm of cervix HPV Testing [facility] Start: 2016 HPV Vaccine (1 - 3-d ose SCDM series) HPV Vaccine (1 - 3-dose SCDM series) [facility] Start: 2010 Screening for malign ant neoplasm of cervix [facility] Start: 2008 Hepatitis B Vaccine (1 of 3 - 19+ 3-dose series) Hepatitis B Vaccine (1 of 3 - 19+ 3-dose series) [facility] Start: 2008 Urine microalbumin profile DTa P,Tdap,Td Vaccine (1 - Tdap) [facility] Start: 2007 Anxiety Screening Anxiety Screening [facility] Start: 2007 Depression Screening Depression Scre ening [facility] Start: 2007 Hepatitis C screening Hepatitis C Sc alcides [facility] Start: 2007 HIV screening HIV Screening [facility] Start: 1989 Covid-19 Vaccine (#1) Covid-19 Vacci ne (#1) [facility] Start: 1989 Hepatitis B Vaccine (1 of 3 - 3-dose series) Hepatitis B Vaccine (1 of 3 - 3-dose series) [facility] End: 10-12-2024 CT Abdomen and Pelvis WO contrast CT ABD/PEL WO IVCON Radiology Routine Incisional hernia, without obstruction or gangrene 1 Occurrences starting 09/13/2023 until 10/12/2024 [facility] Work Phone: Comment on above: 1 Occurrences starti ng 09/13/2023 until 10/12/2024 CT Abdomen and Pelvi s WO contrast CT ABD/PEL WO IVCON Radiology Routine Incisional hernia, without obstruction or gangrene 09/21/2023 3:35 PM EDT [facility] Work Phone: Patient referral [facility] Work Phone: [facility] Payers Date Payer Category Payer Policy ID Unknown [employer] 0 [id number] Social History Date Type Detail Facility Start: 03-23-2023 End: 03-23-2023 Tobacco smoking status NHIS Unknown if ever smoked [facility] Start: 1990 Sex Assigned At Female W [facility] Start: 1990 Sex Assigned At Not on file [facility] Start: 08-31-2023 End: 02-16-2025 Gender identity Not on file [facility] Start: 08-31-2023 Tobacco smoking stat us NHIS Never smoked tobacco [facility] Start: 08-31-2023 Tobacco use and exposure Smokeless tobacco non-user [facility] Start: 08-31-2023 End: 02-16-2025 Alcohol intake Lifetime non-drinker (finding) [facility] Start: 08-31-2023 End: 02-16-2025 History of Social function [facility] Start: 08-13-2023 National Score (1-100), lower number is lower risk 40 [facility] Goals Date Patient Goal Desired Activity /State Functional Status Date Assessment Result Facility 03-26-2023 Functional status Ambulates;Bathroom Priv ilege [facility] Work Phone: Mental Status Date Assessment Result Facility 03-26-2023 Cognitive function Voice/Name [facility] Work Phone: Clinical Notes 03-23-2023 to 02-16-2025 Kan Oliver MD - 02/16/2025 2:28 PM EDTDoMaryjane barker - 02/16/2025 2:08 PM Che Zuniga RT(R) - 02/16/2025 1:30 PM EDTTelephone Encounter - Dean Clark LPN - 01/22/2025 11:50 AM EDT Note Date & Type Note Facility 02-16-2025 Note HNO ID: [id number] Author: KAN OLIVER MD Service: ? Author Type: Physician Type: Progress Notes Filed: 02/19/2025 07:35 Note Text: [facility] OUTPATIENT CLINIC NOTE PATIENT NAME: Ema Headley INTERVAL HPI: Since last July, patient has been overall well. Symptoms include pain and bulge. Does describe episodes of incarceration and pain in ED. Has not lost too much weight, BMI 62 from 66. Reports stressors at home preventing weight loss but new book on dieting which has helped so far. PHYSICAL EXAM: BP 121/62 Pulse 64 Temp 37.1 ?C (98.7 ?F) (Temporal) Ht 152.4 cm (5') Wt (!) 144.7 kg (319 lb) LMP 02/06/2025 BMI 62.30 kg/m? Body mass index is 62.3 kg/m?. GENERAL: Alert and oriented, no acute distress, cooperative. LUNGS: Non labored breathing, clear to ascultation bilaterally ABDOMEN: soft, non tender, non distended, upper midline hernia palpable [facility] scan recently with complex ventral hernia with some bowel and fat ASSESSMENT AND PLAN: Ema Headley is a 34 year old woman with a history of obesity and umbilical hernia repair who is being followed in clinic for recurrent ventral hernia. Discussed why it would be unwise to proceed with surgery now and the increased risk of recurrence and wound complications given her BMI. - Follow up in 3 months to assess weight loss progress Eddie Cardona MD General Surgery Attending Note I evaluated the patient and personally participated in the matthews components. I agree with the resident's findings and plan as documented and have discussed the case and management of the patient's care with the resident. 34-year-old female returns for ventral hernia for which I have previously seen her for. Last time we discussed weight loss as her BMI is currently greater than 60. We again discussed the importance of weight loss prior to surgery we discussed strategies for weight loss I also offered her consultation with the bariatric surgery team if she wished to do that. She describes starting a new diet using new book that she obtained and has found some success with so we will continue this and I will see her back in 3 to 4 months to check the progress of her weight loss. Signature: KAN OLIVER MD [facility] 02-16-2025 History of Presen t illness Narrative [facility] OUTPATIENT CLIN[facility] NOTE PATIENT NAME: Ema Headley INTERVAL HPI: Since last July, patient has been overall well. Symptoms include pain and bulge. Does describe episodes of incarceration and pain in ED. Has not lost too much weight, BMI 62 from 65. Reports stressors at home preventing weight loss but new book on dieting which has helped so far. PHYSICAL EXAM: BP 121/62 Pulse 64 Temp 37.1 C (98.7 F) (Temporal) Ht 152.4 cm (5') Wt (!) 144.7 kg (319 lb) LMP 02/06/2025 BMI 62.30 kg/m Body mass index is 62.3 kg/m . GENERAL: Alert and oriented, no acute distress, cooperative. LUNGS: Non labored breathing, clear to ascultation bilaterally ABDOMEN: soft, non tender, non distended, upper midline hernia palpable Relevant Imaging CT scan recently with complex ventral hernia with some bowel and fat ASSESSMENT AND PLAN: Ema Headley is a 34 year old woman with a history of obesity and umbilical hernia repair who is being followed in clinic for recurrent ventral hernia. Discussed why it would be unwise to proceed with surgery now and the increased risk of recurrence and wound complications given her BMI. - Follow up in 3 months to assess weight loss progress Eddie Cardona MD General Surgery Attending Note I evaluated the patient and personally participated in the matthews components. I agree with the resident's findings and plan as documented and have discussed the case and management of the patient's care with the resident. 34-year-old female returns for ventral hernia for which I have previously seen her for. Last time we discussed weight loss as her BMI is currently greater than 60. We again discussed the importance of weight loss prior to surgery we discussed strategies for weight loss I also offered her consultation with the bariatric surgery team if she wished to do that. She describes starting a new diet using new book that she obtained and has found some success with so we will continue this and I will see her back in 3 to 4 months to check the progress of her weight loss. Signature: KAN OLIVER MD What is the reason for your visit today? consult Who is your referring physician? SELF Are you having poor oral intake? NO Have you had unintentional weight loss of 15 lbs/7 Kg in the last 3-6 months? NO Bowels: regular Wound: clean & dry Temperature: No Drains: No documented in this encounter [facility] 02-16-2025 Note HNO ID: [id number] Author: ?, ?, ? Service: ? Author Type: ? Type: Progress Notes Filed: 02/19/2025 07:35 Note Text: What is the reason for your visit today? consult Who is your referring physician? SELF Are you having poor oral intake? NO Have you had unintentional weight loss of 15 lbs/7 Kg in the last 3-6 months? NO Bowels: regular Wound: clean AND dry Temperature: No Drains: No [facility] 02-16-2025 History of Presen t illness Narrative Radiology Service Progress Note PATIENT NAME: Ema Headley DATE OF SERVICE: February 16, 2025 TIME: 1:33 PM PATIENT IDENTITY VERIFICATION COMPLETED USING TWO (2) IDENTIFIERS: Name and Date of confirmed by patient verbally and Name and Date of confirmed by identification band. FALL SCREENING: Has the patient had 2 falls in the last year or 1 fall with injury or currently using an Ambulatory Assistive Device (Walker, Cane, Wheelchair, Crutches, etc.)? No PATIENT GENDER DATA: Assigned female at . status: : No status: NO. PATIENT RELEVANT IMPLANT DATA REVIEWED: Yes PATIENT PRESENTS WITH AN IMPLANTABLE OR ATTACHED SET DESIGNER: No RADIOLOGY DEPARTMENT: CT; Exam(s) Completed: Abdomen/Pelvis . Anesthesia: No PERIPHERAL IV DATA: Not applicable SIGNED BY: JOSELYN Aldana) February 16, 2025 1:33 PM documented in this encounter [facility] 02-16-2025 Note HNO ID: [id number] Author: CHE CHEEMA RT(R) Service: Radiology Author Type: Technologist Type: Progress Notes Filed: 02/16/2025 13:38 Note Text: Radiology Service Progress Note PATIENT NAME: Ema Headley DATE OF SERVICE: February 16, 2025 TIME: 1:33 PM PATIENT IDENTITY VERIFICATION COMPLETED USING TWO (2) IDENTIFIERS: Name and Date of confirmed by patient verbally and Name and Date of confirmed by identification band. FALL SCREENING: Has the patient had 2 falls in the last year or 1 fall with injury or currently using an Ambulatory Assistive Device (Walker, Cane, Wheelchair, Crutches, etc.)? No PATIENT GENDER DATA: Assigned female at . status: : No status: NO. PATIENT RELEVANT IMPLANT DATA REVIEWED: Yes PATIENT PRESENTS WITH AN IMPLANTABLE OR ATTACHED SET DESIGNER: No RADIOLOGY DEPARTMENT: CT; Exam(s) Completed: Abdomen/Pelvis . Anesthesia: No PERIPHERAL IV DATA: Not applicable SIGNED BY: RT Katya(Lorenza) February 16, 2025 1:33 PM [facility] 01-22-2025 Miscellaneous Notes Called and spoke to pt's , verified name and . Regarding scheduling of CT. Pt's informed this ghost writer that they wanted it done the same day as appt with Dr. Oliver. Contacted same day ct, Chandana, availability for 1:30 pm on 02/16/2025 in QB1. Thanked pt's and Chandana for their time and advised pt's of appt date and time. Pt's acknowledged and verbalized understanding. Dean Clark LPN documented in this encounter [facility] 01-22-2025 Telephone encounter Note Called and spoke to pt's , verified name and . Regarding scheduling of CT. Pt's informed this ghost writer that they wanted it done the same day as appt with Dr. Oliver. Contacted same day Chandana chong, availability for 1:30 pm on 02/16/2025 in QB1. Thanked pt's and Chandana for their time and advised pt's of appt date and time. Pt's acknowledged and verbalized understanding. Dean Clark LPN [facility] 12-24-2024 Telephone encounter Note The of the patient is asking id Dr. Goodson would be comfortable doing the plastic surgery on his after hernia surgery with the current weight she is at 315lbs. He has questions and would like to speak to someone from the clinical team regarding this. . [facility] 12-24-2024 Miscellaneous Notes The of the patient is asking id Dr. Goodson would be comfortable doing the plastic surgery on his after hernia surgery with the current weight she is at 315lbs. He has questions and would like to speak to someone from the clinical team regarding this. . documented in this encounter [facility] 04-01-2024 Telephone encounter Note Spoke with Ema Headley yesterday April 02, 2024, on the phone regarding her anti-obesity medication. We previously discussed Phentermine versus Topiramate. Patient states that her and her discussed these and she would prefer to naturally try and lose weight. Advised patient to focus on increased physical activity and a high protein, low calorie eating plan. Patient to reach out if she decides she would like to try medications. Alissa Guidry, MSN, METAL SPRAYER PRODUCTION, FINISHING RANGE SUPERVISOR-C April 01, 2024 8:28 AM [facility] 04-01-2024 Miscellaneous Notes Spoke with Ema Headley yesterday April 02, 2024, on the phone regarding her anti-obesity medication. We previously discussed Phentermine versus Topiramate. Patient states that her and her discussed these and she would prefer to naturally try and lose weight. Advised patient to focus on increased physical activity and a high protein, low calorie eating plan. Patient to reach out if she decides she would like to try medications. PURVI Will, METAL SPRAYER PRODUCTION, FINISHING RANGE SUPERVISOR-C April 01, 2024 8:28 AM documented in this encounter [facility] 03-28-2024 Telephone encounter Note Spoke with Ema Headley today, March 28, 2024, on the phone regarding her a nti obesity medications. Discussed with patient that her Ozempic can not be covered by [employer] as she does not have Type 2 DM. Discussed Phentermine and Topiramate. Patient will call on Sunday once she decides what she would like to start. Also notified patient that if she took Phentermine, she would need to be able to monitor BP and HR. Alissa Guidry, MSN, METAL SPRAYER PRODUCTION, FINISHING RANGE SUPERVISOR-C March 28, 2024 3:28 PM [facility] 03-28-2024 Miscellaneous Notes Spoke with Ema Headley today, March 28, 2024, on the phone regarding her a nti obesity medications. Discussed with patient that her Ozempic can not be covered by [employer] as she does not have Type 2 DM. Discussed Phentermine and Topiramate. Patient will call on Sunday once she decides what she would like to start. Also notified patient that if she took Phentermine, she would need to be able to monitor BP and HR. Alissa Guidry MSN, METAL SPRAYER PRODUCTION, FINISHING RANGE SUPERVISOR-C March 28, 2024 3:28 PM documented in this encounter [facility] 2024 Telephone encounter Note Spoke with Ema Headley's neighbor today, 2024, on the phone regarding her patient assistance program application. This is the phone number approved by the patient to use. Notified the neighbor that I received the tax information and one piece of the application but there is one more page of the application that needs to be faxed over before I can send the application in to [employer]. Also, spoke with [employer] who notified me that this program is not government funded and is funded by the pharmaceutical company. Alissa Guidry MSN, METAL SPRAYER PRODUCTION, FINISHING RANGE SUPERVISOR-C 2024 11:17 AM [facility] 2024 Miscellaneous Notes Spoke with Ema Headley's neighbor today, 2024, on the phone regarding her patient assistance program application. This is the phone number approved by the patient to use. Notified the neighbor that I received the tax information and one piece of the application but there is one more page of the application that needs to be faxed over before I can send the application in to [employer]. Also, spoke with [employer] who notified me that this program is not government funded and is funded by the pharmaceutical company. Alissa Guidry, MSN, METAL SPRAYER PRODUCTION, FINISHING RANGE SUPERVISOR-C 2024 11:17 AM documented in this encounter [facility] 02-12-2024 History of Presen t illness Narrative Spoke with Ema Cejagalindomihai today, February 12, 2024, on the phone regarding dietary/nutrition education and physical activity. Discussed eating a high protein, low carb, low calorie eating plan. Discussed drinking at least 64 ounces of water. Discussed exercising/physical activity to goal of 150-200 min/week - both aerobic and anaerobic. Discussed Vitamin D level was low and will send in Vitamin D2 supplement x8 weeks. to send over patient assistance program paperwork for Ozempic at his earliest convenience. Alissa Guidry MSN, METAL SPRAYER PRODUCTION, FINISHING RANGE SUPERVISOR-C February 12, 2024 1:59 PM documented in this encounter [facility] 02-07-2024 History of Presen t illness Narrative BMI Obesity Medicine Consultation Date of Service: 02/07/24 Reason for Consultation: Obesity. CC/HPI: Subjective Ema Cejaayannayaquelinadelinemihai is a 33 year old female with obesity who presents to the [facility] for an initial evaluation of her obesity. Primary reason for wanting obesity treatment: Hernia surgery. Treatment options of interest: Medical. Overall goal: 280 lbs. - Hernia team will precede with surgery if between 50-55 BMI Have you tried weight loss medications? If so, which ones? None Weight History: Causes of Weight Gain: Family history of obesity:Yes Post weight retention: No Menopause associated weight gain:N/A Past/Current medication-induced weight gain: No Tobacco cessation associated weight gain:No Weight gain associated with reduced physical activity:Yes Adult or Childhood Obesity: Childhood Lifestyle Factors: Diet: States she eats high protein and tries to decrease bread/pasts She has been eating a lot of vegetables lately since it is in season Aims to drink at least a gallon of water per day Exercise: Do you exercise ? No Are you able to walk up a flight of stairs or a small hill? Yes If no, why not? Does get short of breath . Have you tried exercise programs in the past for weight loss? Self-directed What worked? Very busy and active at home Sleep: Inadequate sleep duration(<6hr/night): No. 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 Poor quality, unrestful sleep:No. Sleep apnea screen: S-snore:No. T-feel tired, fatigued, daytime sleepiness: Yes. O-observed patient stop breathing during sleep:No. P-does patient have, or being treated for high blood pressure:No. B-is BMI >35:Yes. A-Age >50: No N-Neck circumference >15.75 inches:No G-Male gender:No Stop Bang score: 2. Past Medical and Surgical History: ACTIVE PROBLEM LIST Cellulitis of Abdominal Wall Morbid Obesity (Hcc) Sepsis Without Acute Organ Dysfunction (Hcc) PAST SURGICAL HISTORY No date: PT ED OBSTETRICS & GYNECOLOGY Comment: x3 05/2018: REPAIR INCISIONAL HERNIA,REDUCIBLE Comment: [facility] Obesity Related Comorbidities/ROS/ FHx: Fatigue: Yes h/o shortness of breath, GONZALEZ, PND, edema: GONZALEZ h/o uncontrolled blood pressure: No h/o palpitations/cardiac arrhythmia: No h/o chest pain: No h/o CV event ([place], arrhythmias, CVA, TIA): No h/o of PE, bleeding diathesis, hypercoaguable syndrome, excessive bleeding, > 1 DVT, on chronic anticoagulation:No. Stress incontinence:No. GERD:No. Fatty liver disease:No. Migraine COTA and visual changes:No. Glaucoma: No Seizures: No. h/o: hyperthyroidism: No h/o drug or alcohol abuse: No MAOIs use: No Loop diuretic use: No h/o kidney disease: No h/o kidney stones: No h/o pancreatitis: No h/o gallstones: No Sexually Active? Unknown Contraception Use: No Gastroparesis: No Medullary thyroid cancern or MEN-2? No. No family history Social History Marriedwith spouse and children Occupation: Homemaker Alcohol: No. Current Smoker w/in 1 year:No. Vital Signs BP 117/62 Pulse 66 Ht 152.4 cm (5') Wt (!) 154.2 kg (340 lb) BMI 66.40 kg/m PE: NAD:Mixed central and gluteofemoral adiposity. No acanthosis, no lipoma, no pallor. No supraclavicular adiposity. No dorsal adiposity. PERRL. Tongue moist, pink. No OP crowding. Good dental hygiene Lungs: Lungs clear to auscultation. No wheezing, rhonchi, rales Heart: RRR without murmur, gallop, or rubs. No ectopy Abdomen: Soft:Large pannus No striae. Nontender. Non distended. Peripheral pulses: Normal Extremities: No clubbing, cyanosis, or edema. Results: reviewed with the patient Admission on 01/19/2024, Discharged on 01/19/2024 Component Date Value Ventricular Rate 01/18/2024 70 Atrial Rate 01/18/2024 70 P-R Interval 01/18/2024 144 QRS Duration 01/18/2024 86 QT Interval 01/18/2024 414 QTC Calculation (Bazett) 01/18/2024 447 Calculated P [place] 01/18/2024 32 Calculated R [place] 01/18/2024 55 Calculated T [place] 01/18/2024 15 Protein, Total 01/19/2024 7.2 Albumin 01/19/2024 4.1 Calcium, Total 01/19/2024 9.4 Bilirubin, Total 01/19/2024 0.8 Alkaline Phosphatase 01/19/2024 81 AST 01/19/2024 19 ALT 01/19/2024 20 Glucose 01/19/2024 106 (H) BUN 01/19/2024 10 Creatinine 01/19/2024 0.67 Sodium 01/19/2024 140 Potassium 01/19/2024 3.8 Chloride 01/19/2024 105 CO2 01/19/2024 21 (L) Anion Gap 01/19/2024 14 Estimated Glomerular Pascual* 01/19/2024 118 Magnesium 01/19/2024 1.9 WBC 01/19/2024 12.19 (H) RBC 01/19/2024 5.30 (H) Hemoglobin 01/19/2024 14.4 Hematocrit 01/19/2024 43.1 MCV 01/19/2024 81.3 MCH 01/19/2024 27.2 MCHC 01/19/2024 33.4 RDW-CV 01/19/2024 13.6 Platelet Count 01/19/2024 243 MPV 01/19/2024 10.1 Neutrophils % 01/19/2024 70.7 Abs Neut 01/19/2024 8.61 (H) Lymphocytes % 01/19/2024 23.0 Abs Lymph 01/19/2024 2.80 Monocytes % 01/19/2024 5.5 Abs [place] 01/19/2024 0.67 Eosinophils % 01/19/2024 0.2 Abs Eosin 01/19/2024 0.03 Basophils % 01/19/2024 0.2 Abs Baso 01/19/2024 0.03 Immature Granulocytes % 01/19/2024 0.4 Abs Immature Gran 01/19/2024 0.05 NRBC 01/19/2024 0.0 Absolute nRBC 01/19/2024 <0.01 Diff Type 01/19/2024 Auto PT Sec 01/19/2024 11.1 INR 01/19/2024 1.0 Beta HCG, Quantitative F* 01/19/2024 <0.6 Lactate (POCT) 01/19/2024 1.2 Collection Time 01/19/2024 316 Critical Report Date 01/19/2024 0 Critical Report Time 01/19/2024 0 FIO2 01/19/2024 21.0 Impression: Ema Headley is a 33 year old female with Class III obesity who presents to the [facility] and interested in the combination of behavioral and pharmacological for treatment. She has childhood onset obesity with gradual weight gain. The causes of her obesity are multifactorial and may include increased consumption of high calorie/process foods and suboptimal physical activity. In addition to her obesity, there are no significant weight-related medical comorbidities which increase her cardiovascular mortality risk. In addition to the medical conditions, there are a few behavioral contributors . which include,eating high-calorie foods, large portion sizes, grazing/irregular meal patterns, and reduced physical activity. Patient has completed 6 months of comprehensive lifestyle interventions and has been unable to have weight loss of at least 5% of body weight. Although there are areas in her diet that need improvement and the current physical activity is less than the recommended 150-200 min/ week, it is unlikely that behavioral modification alone will be effective in chcf weight loss. It is clear that her overall quality of life is compromised by her weight. Regardless, she is motivated to lose weight and open to our recommendations. Assessment/Plan: 1. Class 3 severe obesity due to excess calories with body mass index (BMI) of 60.0 to 69.9 in adult, unspecified whether serious comorbidity present (HCC) - ICD9: 278.01, V85.44, ICD10: E66.01, Z68.44 (primary diagnosis) -Childhood obesity -Interested in losing weight for hernia repair surgery (goal of 50-55 BMI) -Increase physical activity to 150-200 min/week (outside of daily activities) - THYROID STIMULATING HORMONE - VITAMIN D 25 HYDROXY - HEMOGLOBIN A1C -Plan to start on Ozempic 0.25 mg subQ weekly then increase to 0.5 mg subQ weekly ( to fax back patient assistance program paperwork once completed) -Follow up on Sunday at 1 PM for telephone encounter for further dietary counseling due to patient next appointment 2. Dietary counseling and surveillance - ICD9: V65.3, ICD10: Z71.3 -Short discussion of eating a high protein, low carb eating plan -Discussed importance of drinking at least 64 ounces of water per day -Given heathy eating handout and weekly food logs I spent a total of 30 minutes on the date of the service which included preparing to see the patient, [id number] patient care, completing clinical documentation, obtaining and/or reviewing separately obtained history, performing a medically appropriate examination, counseling and educating the patient/family/caregiver, and ordering medications, tests, or procedures. Alissa Guidry, MSN, METAL SPRAYER PRODUCTION, FINISHING RANGE SUPERVISOR-C February 07, 2024 3:07 PM documented in this encounter [facility] 02-07-2024 History of Presen t illness Narrative Plastic Surgery Note CC: Consult for Panniculectomy HPI: Ema is a 33 year old female here today to discuss excess abdominal skin and fat after massive weight loss. Patient has been seen by Dr. Daniel Simon in General Surgery for ventral hernia repair with mesh. She was hopeful for panniculectomy at the same time. Patient states that Dr Oliver wants her to lose another 50-55 lbs before surgery Here today to discuss a plan moving forward after talking with Dr Oliver today Dr Dr Oliver's note Plan: Patient was seen by Dr Oliver who explained in detail the importance of weight loss prior to discussing a ventral hernia repair. Options for weight loss were discussed with the patient and she was open to try to lose significant weight before undergoing surgery. Patient was also offered to discuss weight loss medications, their effectiveness as well as the potential side effects with the MARKETING ANALYTICS MANAGER before final decision. Current weight: 341 lbs. Has lost 24 pounds since last visit in December. Panniculus causes interference with activities of daily living: Yes History of abdominal hernia: Yes History of abdominal surgery: Umbilical hernia repair 2017, 2020 REVIEW OF SYSTEMS All negative except for: GENERAL: []weight loss []malaise []fevers HEENT: []frequent or significant headaches []changes in hearing []change in vision []nose bleeds []other nasal problems NECK: []lumps []goiter []pain and significant neck swelling RESPIRATORY: []cough []hemoptysis []wheezing []COPD []dyspnea []shortness of breath CARDIOVASCULAR: []chest pain []leg swelling []hypertension []CHF []palpitations GI: []nausea []vomiting []diarrhea MUSCULOSKELETAL: [] joint pain or swelling [] back pain []muscle pain SKIN: [] skin lesions []rash []itching PSYCH: []sleep disturbance []mood disorder []recent psychosocial stressors HEMATOLOGY/LYMPHOLOGY: []prolonged bleeding []bruising easily []swollen nodes ENDOCRINE: []cold intolerance []heat intolerance []polyuria []polydipsia []goiter [] Diabetes History of DVT/PE: will ask on subsequent visit History of Recurrent Miscarriages: will ask on subsequent visit Objective: There were no vitals taken for this visit. PAST MEDICAL HISTORY No date: Cellulitis, abdominal wall No date: Obesity No date: Sepsis without acute organ dysfunction (HCC) PAST SURGICAL HISTORY No date: PT ED OBSTETRICS & GYNECOLOGY Comment: x3 05/2018: REPAIR INCISIONAL HERNIA,REDUCIBLE Comment: [facility] Current Outpatient Medications Medication Sig Dispense Refill cefdinir (OMNICEF) 300 mg capsule Take by mouth. calcium carbonate/multivitamin (MULTIVITAMIN-CALCIUM CARB ORAL) Take by mouth. evening primrose oil (EVENING PRIMROSE ORAL) Take by mouth. No current facility-administered medications for this visit. ALLERGIES No Known Allergies OB HISTORY: OB History No obstetric history on file. Physical Exam: A&Ox3, NAD Abdominal Exam: soft, non-tender, obese, non-distended, Pfannenstiel and hernia repair scars Evidence of Hernia: yes, large ventral hernia Excess abdominal skin and fat Panniculus hangs below symphysis pubis: Yes, 13 cm overhang Lymphedema in lower pannus A/P: Ema is a 33 year old female w/ history of significant weight loss following bariatric surgery, symptomatic abdominal panniculus. Patient is a candidate for a panniculectomy, could reasonably improve the physical functional impairment. The risks, benefits and options were discussed with the ptatient The risks included but not limited to pain, bleeding, infection, heavy scarring, damage to surrounding structures, fluid collections, asymmetry, and need for further procedures. Patient is self - pay. - Discussed with patient The patient is seen and examined by Dr. Goodson and the following reflects his/her service. Scribed by Hina Aguilera RN I agree with the Chief Complaint, ROS, and Past Histories independently gathered by the clinical merchandise support associate and the remaining scribed note accurately describes my personal service to the patient. 20 Minutes total visit spent face to face with patient. Greater than 50% of the time was spent for counseling and coordination of care, discussing treatment options and recommendations. Visit on 01/03/24 She has large ventral hernia and large pendulous pannus with wounds and lymphedema at the base. She would benefit from combined approach with hernia repair and panniculectomy. There are messages from Dr Oliver's office so I have reached out to him to see if he is wanting to combine. Her BMI is noted to be 62 so I discussed with her that she may have to loose weight for the hernia surgeon to consider her a candidate. I mariam defer to the hernia surgeons preference as to proper timing. She is Yaz[employer]ism and does not have insurance or a phone. They use her neighbors phone. I would want to see her back for a preoperative visit. She does not have a phone but her neighbor has a phone and consults can be called in there: Eunice Palacios [phone] Today: Dr Oliver want her to los weight prior to combo surgery which will certainly decrease her complications. I can see her back when she is approved for surgery per Dr Oliver. We ordered Endocrine for weight loss. Christiana Goodson MD documented in this encounter [facility] 02-07-2024 Nurse Note What is the reason for your visit today? Consult Who is your referring physician? Dr. Oliver Are you having poor oral intake? NO Have you had unintentional weight loss of 15 lbs/7 Kg in the last 3-6 months? NO Bowels: regular Wound: clean & dry Temperature: No Drains: No [facility] 02-07-2024 Nurse Note What is the reason for your visit today? Consult Who is your referring physician? Dr. Oliver Are you having poor oral intake? NO Have you had unintentional weight loss of 15 lbs/7 Kg in the last 3-6 months? NO Bowels: regular Wound: clean & dry Temperature: No Drains: No documented in this encounter [facility] 02-07-2024 History of Presen t illness Narrative [facility] - HISTORY AND PHYSICAL Chief Complaint: Symptomatic ventral/umbilical hernia HPI: Ema Headley is a 33 year old female with PMHx of HLD and a known ventral hernia who presents for recent worsening of her epigastric pain related to the hernia. The patient has a known ventral hernia repaired in 2018 with mesh placement. She reports a recurrence of her bulge during the past year which has been gradually increasing in size and became painful. She recently went to the ED on 01/19/2024 for epigastric pain, nausea and one episode of non bilious emesis. A CT scan showed enteritis and a fat containing ventral hernia. The hernia was reducible and her pain improved after manual reduction in the ED. There were no signs of bowel incarceration or strangulation. She also had mild leukocytosis, otherwise her labs were normal and lactate normal. Currently, the patient reports improvement in her pain, she is passing flatus and having BM. She denies any fever, chills, SOB, chest pain or changes in bowel movements. Prior abdominal surgeries include Panniculitis of the Lower Abdominal Wall, Umbilical/Ventral Hernia (s/p open repair with 6x6in pre-peritoneal mesh May 2018 at [facility]SH) . She is not currently on AC. BMI 66.4 kg/m2 Relevant previous operations include: Panniculitis of the Lower Abdominal Wall, Umbilical/Ventral Hernia (s/p open repair with 6x6in pre-peritoneal mesh May 2018 at [facility]SH) No history of Psychiatric Disorders or Opioid Use Independent Moderate (once/week) No Significant Comorbidities PAST MEDICAL HISTORY No date: Cellulitis, abdominal wall No date: Obesity No date: Sepsis without acute organ dysfunction (HCC) PAST SURGICAL HISTORY No date: PT ED OBSTETRICS & GYNECOLOGY Comment: x3 05/2018: REPAIR INCISIONAL HERNIA,REDUCIBLE Comment: [facility] Social History Tobacco Use Smoking status: Never Smokeless tobacco: Never Vaping Use Vaping status: Never Used Substance Use Topics Alcohol use: Never Drug use: Never Additional social history not relevant to the patient's HPI FAMILY HISTORY Problem Relation Age of Onset Diabetes Mother Intersitial Lung Disease Father Additional family history not relevant to the patient's HPI ALLERGIES No Known Allergies Current Outpatient Medications Medication Sig Dispense Refill cefdinir (OMNICEF) 300 mg capsule Take by mouth. calcium carbonate/multivitamin (MULTIVITAMIN-CALCIUM CARB ORAL) Take by mouth. evening primrose oil (EVENING PRIMROSE ORAL) Take by mouth. No current facility-administered medications for this visit. REVIEW OF SYSTEMS GENERAL: No fevers. RESPIRATORY: No cough or shortness of breath CARDIOVASCULAR: No chest pain GI: No nausea, vomiting, or diarrhea The remainder of the review of systems is negative. There were no vitals taken for this visit. Physical findings of this patient are as follows (COMPLETE 10 INCLUDING HEART AND LUNG EXAM OR CHOOSE NORMAL EXAM IF APPROPRIATE): Physical Exam Physical Exam Constitutional: The patient is well-developed and in no distress. Cardiovascular: Regular rate. Pulmonary/Chest: Effort normal and breathing comfortably on room air. Abdominal: Soft, non tender and non distended Neurological: Alert. Skin: Skin is warm and dry. Psychiatric: Affect and judgment normal. Relevant Hernia Findings - large pannus overlying the ventral hernia, reducible, non painful. LABS: No results found for: HBA1C IMAGING - Reviewed with staff CT - 1. Mesenteric/perienteric edema with underlying small bowel thickening suggesting enteritis. 2. Small associated free fluid. 3. Multicompartment ventral fat-containing hernia again noted with new trace fluid. Assessment: Ema Headley is a 33 year old female who presented to the ED on 01/19/2024 for severe epigastric pain related to a known ventral hernia. CT imaging confirmed the presence of a fat containing ventral hernia without signs of obstruction or incarceration. Patient has a history of panniculectomy and open ventral hernia repair at OSH in 2018 with mesh placement. Plan: Patient was seen by Dr Oliver who explained in detail the importance of weight loss prior to discussing a ventral hernia repair. Options for weight loss were discussed with the patient and she was open to try to lose significant weight before undergoing surgery. Patient was also offered to discuss weight loss medications, their effectiveness as well as the potential side effects with the MARKETING ANALYTICS MANAGER before final decision. Andres Gamino MD General Surgery PGY1 Attending Note I evaluated the patient and personally participated in the matthews components. I agree with the resident's findings and plan as documented and have discussed the case and management of the patient's care with the resident. Signature: KAN OLIVER MD documented in this encounter [facility] 01-31-2024 Telephone encounter Note Called Ms. Headley to request prior imaging and operative reports from outside the [facility]. Left voice mail for patient to return call to office at their earliest convenience. Maryjane Merino [facility] 01-31-2024 Miscellaneous Notes Called Ms. Headley to request prior imaging and operative reports from outside the [facility]. Left voice mail for patient to return call to office at their earliest convenience. Maryjane Merino documented in this encounter [facility] 01-18-2024 Telephone encounter Note Reason for Call: Abdominal pain for over 2 hours Patient is scheduled for hernia repair surgery at the end of the month and is unsure if the pain is related. Patient is rating pain level 8/10 in the upper abdomen and can audibly be heard moaning in pain and discomfort. Outcome: Go to the ED Patient will go into the ED for evaluation. Reason for Disposition [1] SEVERE pain (e.g., excruciating) AND [2] present > 1 hour Protocols used: Abdominal Pain - [id number] [facility] 01-18-2024 Miscellaneous Notes Reason for Call: Abdominal pain for over 2 hours Patient is scheduled for hernia repair surgery at the end of the month and is unsure if the pain is related. Patient is rating pain level 8/10 in the upper abdomen and can audibly be heard moaning in pain and discomfort. Outcome: Go to the ED Patient will go into the ED for evaluation. Reason for Disposition [1] SEVERE pain (e.g., excruciating) AND [2] present > 1 hour Protocols used: Abdominal Pain - [id number] documented in this encounter [facility] 01-03-2024 History of Presen t illness Narrative DATE OF PHOTOS: 01/03/2024 Body Part: Abdomen ST Ayan January 04, 2024 2:27 PM documented in this encounter [facility] 01-03-2024 History of Presen t illness Narrative Plastic Surgery Note CC: Consult for Panniculectomy HPI: Ema is a 33 year old female here today to discuss excess abdominal skin and fat after massive weight loss. Patient has been seen by Dr. Daniel Simon in General Surgery for ventral hernia repair with mesh. She was hopeful for panniculectomy at the same time. Current weight: 365 Panniculus causes interference with activities of daily living: Yes History of abdominal hernia: Yes History of abdominal surgery: Umbilical hernia repair 2017, 2020 REVIEW OF SYSTEMS All negative except for: GENERAL: []weight loss []malaise []fevers HEENT: []frequent or significant headaches []changes in hearing []change in vision []nose bleeds []other nasal problems NECK: []lumps []goiter []pain and significant neck swelling RESPIRATORY: []cough []hemoptysis []wheezing []COPD []dyspnea []shortness of breath CARDIOVASCULAR: []chest pain []leg swelling []hypertension []CHF []palpitations GI: []nausea []vomiting []diarrhea MUSCULOSKELETAL: [] joint pain or swelling [] back pain []muscle pain SKIN: [] skin lesions []rash []itching PSYCH: []sleep disturbance []mood disorder []recent psychosocial stressors HEMATOLOGY/LYMPHOLOGY: []prolonged bleeding []bruising easily []swollen nodes ENDOCRINE: []cold intolerance []heat intolerance []polyuria []polydipsia []goiter [] Diabetes History of DVT/PE: will ask on subsequent visit History of Recurrent Miscarriages: will ask on subsequent visit Objective: BP 114/58 Pulse 63 Ht 162.6 cm (5' 4) Wt (!) 165.6 kg (365 lb) BMI 62.65 kg/m PAST MEDICAL HISTORY Diagnosis Date Cellulitis, abdominal wall Obesity Sepsis without acute organ dysfunction (HCC) PAST SURGICAL HISTORY Procedure Laterality Date PT ED OBSTETRICS & GYNECOLOGY x3 REPAIR INCISIONAL HERNIA,REDUCIBLE 05/2018 [facility] Current Outpatient Medications Medication Sig Dispense Refill cefdinir (OMNICEF) 300 mg capsule Take by mouth. calcium carbonate/multivitamin (MULTIVITAMIN-CALCIUM CARB ORAL) Take by mouth. evening primrose oil (EVENING PRIMROSE ORAL) Take by mouth. No current facility-administered medications for this visit. ALLERGIES No Known Allergies OB HISTORY: OB History No obstetric history on file. Physical Exam: A&Ox3, NAD Abdominal Exam: soft, non-tender, obese, non-distended, Pfannenstiel and hernia repair scars Evidence of Hernia: yes, large ventral hernia Excess abdominal skin and fat Panniculus hangs below symphysis pubis: Yes, 13 cm overhang Lymphedema in lower pannus A/P: Ema is a 33 year old female w/ history of significant weight loss following bariatric surgery, symptomatic abdominal panniculus. Patient is a candidate for a panniculectomy, could reasonably improve the physical functional impairment. The risks, benefits and options were discussed with the ptatient The risks included but not limited to pain, bleeding, infection, heavy scarring, damage to surrounding structures, fluid collections, asymmetry, and need for further procedures. Photographs have been taken and will be sent to the insurance company as necessary. Patient is self - pay. The patient is seen and examined by Dr. Goodson and the following reflects his/her service. Scribed by Kaycee Javier RN I agree with the Chief Complaint, ROS, and Past Histories independently gathered by the clinical merchandise support associate and the remaining scribed note accurately describes my personal service to the patient. 30 Minutes total visit spent face to face with patient. Greater than 50% of the time was spent for counseling and coordination of care, discussing treatment options and recommendations. She has large ventral hernia and large pendulous pannus with wounds and lymphedema at the base. She would benefit from combined approach with hernia repair and panniculectomy. There are messages from Dr Oliver's office so I have reached out to him to see if he is wanting to combine. Her BMI is noted to be 62 so I discussed with her that she may have to loose weight for the hernia surgeon to consider her a candidate. I mariam defer to the hernia surgeons preference as to proper timing. She is Yazidism and does not have insurance or a phone. They use her neighbors phone. I would want to see her back for a preoperative visit. She does not have a phone but her neighbor has a phone and consults can be called in there: Eunice Palacios [phone] Christiana Goodson MD documented in this encounter [facility] 10-24-2023 Telephone encounter Note Per FYI Patient will be calling back. Needs assistance with schedule consult with Dr. Kan Oliver and plastic surgery Demetrice Goodson Please contact patient and schedule accordingly Number listed of neighbors [facility] 10-24-2023 Miscellaneous Notes Per FYI Patient will be calling back. Needs assistance with schedule consult with Dr. Kan Oliver and plastic surgery Demetrice Goodson Please contact patient and schedule accordingly Number listed of neighbors documented in this encounter [facility] 10-19-2023 Telephone encounter Note Patient spouse called in stating they are still waiting for instructions on next step. Stated they were to be contacted by Dr. Gonsalves in plastic surgery and a possible hernia repair. They are wanting to know what to do next and they have had no contact. Please review and advise Virgie Austin Cob Sawyer [facility] 10-19-2023 Miscellaneous Notes Patient spouse called in stating they are still waiting for instructions on next step. Stated they were to be contacted by Dr. Gonsalves in plastic surgery and a possible hernia repair. They are wanting to know what to do next and they have had no contact. Please review and advise Virgie Austin Cob Sawyer Phone number listed for patient is neighbor'luis fernando Fernandez. Left my direct line for when patient is available to speak to schedule CT and follow up with Dr. Simon after completion of CT Virgie Austin Cob Sawyer Images from the original note were not included. Daniel Simon MD [facility] Surg Scheduling Pool; [facility] General Surgery Pool Please let the patient know there is a hernia recurrence but is likely at the superior aspect of the repair but may be additional defects. I would ask that we repeat the CT scan with oral and no IV contrast to see if additional defects are more obvious at this time. I would then want to see her back in the office afterwards. I have placed an order for the CT scan. Thanks-Rich Scan on 09/03/2023 2:52 PM by Provider, GERA Medrano: Miscellaneous Procedures 2018 operative report from [facility] for ventral/umbilical hernia repair. Please contact their neighbor at [phone]. Erika Donaldson RN documented in this encounter [facility] 09-28-2023 History of Presen t illness Narrative HISTORY AND PHYSICAL Ema Cejafartun 1990 REFERRING PHYSICIAN: Self CHIEF COMPLAINT: Abdominal Bulge HPI: Ema is a 33 year old female with a complaint of a bulge and discomfort in her just above the level of her bellybutton. The patient notes pain in the area and notes that it is somewhat increased in size. She notes it is worse with coughing. The symptoms have increased, over the past few months. The patient notes no symptoms of bowel obstruction and denies nausea or vomiting. The patient underwent an umbilical hernia repair in 2018. Copy of the operative note records the surgeon as Maritza Palacios with the surgery performed on June 06, 2018. The patient was found to have incarcerated ventral and umbilical hernias. Operative report describes an open procedure with closure of the defects with 1 PDS and then an onlay mesh repair using a 6 x 6 inch piece of mesh The patient notes she had a section and performed in 2020. The patient was admitted to [facility] close felt to be abdominal wall cellulitis on April 23, 2023. A CT scan of the abdomen pelvis was performed on April 26, 2023. This demonstrated: A ventral hernia containing fat. Thickened anterior abdominal wall above the level umbilicus which could have been due to from the previous hernia repair without drainable collections noted. The size and location of the hernia is not noted in the report and I do not have the CT images currently CT scan images reviewed from [facility] dated March 26, 2023 . My review of the CAT scan demonstrates a defect 4 cm transverse by 2 cm craniocaudal with what appears to be additional scarring just below this area near the umbilicus which is difficult to interpret if there is a large defect present. Given the fact that the clinical evaluation was that the hernia was larger than the CT scan images from March I obtained a follow-up CT scan of the abdomen pelvis. This demonstrated: IMPRESSION: Large, complex, multilobulated fat-containing hernia of the anterior abdominal wall as detailed above. ABDOMINAL WALL: There is a large, complex, multilobulated fat-containing hernia of the anterior abdominal wall. This occurs above the level of the umbilicus. The neck is difficult to see, but appears to measure approximately 3 cm. There is mild stranding within the inferior portions of the herniated contents. No past medical history on file. PAST SURGICAL HISTORY Procedure Laterality Date PT ED OBSTETRICS & GYNECOLOGY x3 REPAIR INCISIONAL HERNIA,REDUCIBLE 05/2018 [facility] No current outpatient medications on file. No current facility-administered medications for this visit. ALLERGIES: Patient has no known allergies. PERSONAL HISTORY: Social History Tobacco Use Smoking status: Never Smokeless tobacco: Never Vaping Use Vaping Use: Never used Substance Use Topics Alcohol use: Never Drug use: Never FAMILY HISTORY: FAMILY HISTORY Problem Relation Age of Onset Diabetes Mother Intersitial Lung Disease Father REVIEW OF SYMPTOMS: The review of systems data was entered by the nurse and reviewed by me There are no exam notes on file for this visit. PHYSICAL EXAMINATION: General: The patient is 33 year old female, well nourished, well hydrated in no acute distress. The patient is oriented to time, place, and person. VITALS: There were no vitals taken for this visit. There is no height or weight on file to calculate BMI. HEENT: Normal cephalic, ataumatic, pupils are equally round, sclera are anicteric, mucous membranes are moist, oropharynx is clear. Neck has no masses, asymmetry or lymphadenopathy. Thyroid is unremarkable. Respiratory: Clear to auscultation and percussion. Normal respiratory excursion and pattern. Cardiac: Examination is regular rate and rhythm. Abdominal exam: Soft, nontender, with no palpable masses. No hepatosplenomegaly. A questionable supraumbilical hernia with questionable additional lower hernias just below the level umbilicus. Super morbidly obese patient. Patient with a pannus with induration consistent with chronic panniculitis without signs of skin breakdown or infection Rectal exam: exam deferred Extremities: no clubbing, cyanosis or edema. No adenopathy. Other: LABORATORY VALUES: As Noted RADIOLOGIC STUDIES: As Noted Assessment IMPRESSION: Ventral hernia clinically supraumbilical, with a smaller defect at or just below the umbilicus, no lower abdominal hernias, panniculitis PLAN: I did not have the patient's operative report at the time of office visit. We have since got copies of the operative report. We are currently awaiting CT scan images to be uploaded into our system for review. CT scan images reviewed prior uploaded CT scan and September 13, 2023. My review of the CAT scan demonstrates a defect 4 cm transverse by 2 cm craniocaudal with what appears to be additional scarring just below this area near the umbilicus which is difficult to interpret if there is a larger defect present. The patient would be interested in seeing plastic surgery and undergo lower abdominoplasty given her panniculitis. While there is not obvious CT scan changes the area feels indurated on exam and given her super morbid obesity feel she is likely to have more problems in the future. I will reach out to Dr. Collier for his opinion. If a combined procedure is not indicated I would perform a laparoscopic ventral hernia repair with mesh. I discussed with the patient that I would contact them after consulting with Dr. Collier. A neighbor of theirs has a cellular phone that I will call and leave a message given the plan Diagnoses: (K43.2) Incisional hernia, without obstruction or gangrene (primary encounter diagnosis) Return to Clinic: The patient is instructed to follow-up with me after consultation with plastic surgery Daniel T Alfred, MD documented in this encounter [facility] 09-21-2023 History of Presen t illness Narrative Radiology Service Progress Note PATIENT NAME: Ema Hedaley DATE OF SERVICE: September 21, 2023 TIME: 4:01 PM PATIENT IDENTITY VERIFICATION COMPLETED USING TWO (2) IDENTIFIERS: Name and Date of confirmed by patient verbally. FALL SCREENING: Has the patient had 2 falls in the last year or 1 fall with injury or currently using an Ambulatory Assistive Device (Walker, Cane, Wheelchair, Crutches, etc.)? No PATIENT GENDER DATA: Female. status: status: NO. PATIENT RELEVANT IMPLANT DATA REVIEWED: Not Applicable PATIENT PRESENTS WITH AN IMPLANTABLE OR ATTACHED SET DESIGNER: No RADIOLOGY DEPARTMENT: CT; Exam(s) Completed: Abdomen/Pelvis PERIPHERAL IV DATA: Not applicable SIGNED BY: RT Aston(R) September 21, 2023 4:01 PM documented in this encounter [facility] 09-14-2023 Telephone encounter Note Phone number listed for patient is reymundo Fernandez. Left my direct line for when patient is available to speak to schedule CT and follow up with Dr. Simon after completion of CT Virgie Austin Cob Sawyer [facility] 09-14-2023 Telephone encounter Note Images from the original note were not included. Daniel Simon MD [facility] Surg Scheduling Pool; [facility] General Surgery Pool Please let the patient know there is a hernia recurrence but is likely at the superior aspect of the repair but may be additional defects. I would ask that we repeat the CT scan with oral and no IV contrast to see if additional defects are more obvious at this time. I would then want to see her back in the office afterwards. I have placed an order for the CT scan. Thanks-Rich [facility] 09-13-2023 History of Presen t illness Narrative HISTORY AND PHYSICAL Ema Headley 1990 REFERRING PHYSICIAN: Self CHIEF COMPLAINT: Abdominal Bulge HPI: Ema is a 33 year old female with a complaint of a bulge and discomfort in her just above the level of her bellybutton. The patient notes pain in the area and notes that it is somewhat increased in size. She notes it is worse with coughing. The symptoms have increased, over the past few months. The patient notes no symptoms of bowel obstruction and denies nausea or vomiting. The patient underwent an umbilical hernia repair in 2017. Copy of the operative note records the surgeon as Maritza Palacios with the surgery performed on June 06, 2018. The patient was found to have incarcerated ventral and umbilical hernias. Operative report describes an open procedure with closure of the defects with 1 PDS and then an onlay mesh repair using a 6 x 6 inch piece of mesh The patient notes she had a section and performed in 2020. The patient was admitted to [facility] close felt to be abdominal wall cellulitis on April 23, 2023. A CT scan of the abdomen pelvis was performed on April 26, 2023. This demonstrated: A ventral hernia containing fat. Thickened anterior abdominal wall above the level umbilicus which could have been due to from the previous hernia repair without drainable collections noted. The size and location of the hernia is not noted in the report and I do not have the CT images currently The patient was seen by her primary care physician who felt the patient has a hernia. Ema was referred for evaluation and treatment. History reviewed. No pertinent past medical history. PAST SURGICAL HISTORY Procedure Laterality Date PT ED OBSTETRICS & GYNECOLOGY x3 REPAIR INCISIONAL HERNIA,REDUCIBLE 05/2018 [facility] No current outpatient medications on file. No current facility-administered medications for this visit. ALLERGIES: Patient has no known allergies. PERSONAL HISTORY: Social History Tobacco Use Smoking status: Never Smokeless tobacco: Never Vaping Use Vaping Use: Never used Substance Use Topics Alcohol use: Never Drug use: Never FAMILY HISTORY: FAMILY HISTORY Problem Relation Age of Onset Diabetes Mother Intersitial Lung Disease Father REVIEW OF SYMPTOMS: The review of systems data was entered by the nurse and reviewed by me Nursing Notes: Anahi RamirezEDISON 08/31/2023 3:59 PM Signed REVIEW OF SYSTEMS: General: The patient NOTES fatigue, denies weight loss, NOTES weight gain, denies feeling hot, and denies feelings of cold. Eyes: The patient denies glaucoma, denies eye injury/surgery, does not wear glasses or contacts. Ear/Nose/Throat: The patient denies allergies, denies hayfever, denies ear infections, and denies bloody noses. Cardiovascular: The patient denies chest pain, denies heart disease, denies high blood pressure,denies cardiac stent, denies prior heart attack, denies irregular heart beat, denies high cholesterol, denies poor circulation, denies heart failure, other cardiac issues, denies claudication, denies cold feet, denies peripheral arterial stent. Respiratory: The patient denies tuberculosis, denies pneumonia, denies frequent cough, denies pulmonary embolism, denies shortness of breath, and denies coughing up blood. Gastrointestinal: The patient denies difficulty swallowing, denies acid reflux, denies ulcers, denies vomiting, denies jaundice/hepatitis, NOTES gallbladder problems, denies black or tarry stools, NOTES hemorrhoids, NOTES bleeding from rectum, denies diverticulitis, denies constipation, denies diarrhea, denies loss of stool control, and NOTES hernias. Kidney/Bladder: The patient denies kidney stones, denies urine infections, and denies bloody urine. Skin: The patient denies a history of skin cancer, denies bleeding/changing moles, and denies a history of skin rash. Neurologic: The patient denies a history of epilepsy/convulsions, denies headaches, denies head/spinal injuries, and denies stroke/TIA. Psychiatric: The patient denies psychiatric medications, denies depression, and denies voices, denies substance abuse. Endocrine: The patient denies thyroid disorders, denies diabetes, and denies hormonal problems. Hematologic: The patient denies a history of bruising, denies bleeding, and denies anemia, denies blood clots. Infections: The patient denies a history of measles and mumps, denies rheumatic fever, and denies sexually transmitted diseases. Musculoskeletal: The patient denies back pain/injury, denies back problems, denies sciatica, denies knee/foot trouble, denies arthritis, or denies gout. When was patient's last Mammogram screening? N/A Last Colonoscopy: no prior Anahi Ramirez LPN PHYSICAL EXAMINATION: General: The patient is 33 year old female, well nourished, well hydrated in no acute distress. The patient is oriented to time, place, and person. VITALS: Blood pressure 142/82, pulse 89, temperature 36.3 C (97.4 F), height 162.6 cm (5' 4), weight (!) 163.7 kg (361 lb), SpO2 99%. Body mass index is 61.97 kg/m . HEENT: Normal cephalic, ataumatic, pupils are equally round, sclera are anicteric, mucous membranes are moist, oropharynx is clear. Neck has no masses, asymmetry or lymphadenopathy. Thyroid is unremarkable. Respiratory: Clear to auscultation and percussion. Normal respiratory excursion and pattern. Cardiac: Examination is regular rate and rhythm. Abdominal exam: Soft, nontender, with no palpable masses. No hepatosplenomegaly. A questionable supraumbilical hernia with questionable additional lower hernias and a super morbidly obese patient Rectal exam: exam deferred Extremities: no clubbing, cyanosis or edema. No adenopathy. Other: LABORATORY VALUES: As Noted RADIOLOGIC STUDIES: As Noted Assessment IMPRESSION: Ventral hernia clinically supraumbilical question lower abdominal hernias PLAN: I did not have the patient's operative report at the time of office visit. We have since got copies of the operative report. We are currently awaiting CT scan images to be uploaded into our system for review. CT scan images reviewed preoperative and September 13, 2023. My review of the CAT scan demonstrates a defect 4 cm transverse by 2 cm craniocaudal with what appears to be additional scarring just below this area near the umbilicus which is difficult to interpret if there is a large defect present. Diagnoses: (K43.2) Incisional hernia, without obstruction or gangrene (primary encounter diagnosis) Given the age of the CT scan and some challenges in reading the size I would repeat the CT scan and have the patient follow-up in my office. Return to Clinic: The patient is instructed to follow-up with me after the testing has been completed. Daniel Simon MD documented in this encounter [facility] 09-10-2023 Telephone encounter Note Scan on 09/03/2023 2:52 PM by Provider, GERA Medrano: Miscellaneous Procedures 2018 operative report from [facility] for ventral/umbilical hernia repair. Please contact their neighbor at [phone]. Erika Donaldson RN [facility] 08-31-2023 Nurse Note REVIEW OF SYSTEMS: General: The patient NOTES fatigue, denies weight loss, NOTES weight gain, denies feeling hot, and denies feelings of cold. Eyes: The patient denies glaucoma, denies eye injury/surgery, does not wear glasses or contacts. Ear/Nose/Throat: The patient denies allergies, denies hayfever, denies ear infections, and denies bloody noses. Cardiovascular: The patient denies chest pain, denies heart disease, denies high blood pressure,denies cardiac stent, denies prior heart attack, denies irregular heart beat, denies high cholesterol, denies poor circulation, denies heart failure, other cardiac issues, denies claudication, denies cold feet, denies peripheral arterial stent. Respiratory: The patient denies tuberculosis, denies pneumonia, denies frequent cough, denies pulmonary embolism, denies shortness of breath, and denies coughing up blood. Gastrointestinal: The patient denies difficulty swallowing, denies acid reflux, denies ulcers, denies vomiting, denies jaundice/hepatitis, NOTES gallbladder problems, denies black or tarry stools, NOTES hemorrhoids, NOTES bleeding from rectum, denies diverticulitis, denies constipation, denies diarrhea, denies loss of stool control, and NOTES hernias. Kidney/Bladder: The patient denies kidney stones, denies urine infections, and denies bloody urine. Skin: The patient denies a history of skin cancer, denies bleeding/changing moles, and denies a history of skin rash. Neurologic: The patient denies a history of epilepsy/convulsions, denies headaches, denies head/spinal injuries, and denies stroke/TIA. Psychiatric: The patient denies psychiatric medications, denies depression, and denies voices, denies substance abuse. Endocrine: The patient denies thyroid disorders, denies diabetes, and denies hormonal problems. Hematologic: The patient denies a history of bruising, denies bleeding, and denies anemia, denies blood clots. Infections: The patient denies a history of measles and mumps, denies rheumatic fever, and denies sexually transmitted diseases. Musculoskeletal: The patient denies back pain/injury, denies back problems, denies sciatica, denies knee/foot trouble, denies arthritis, or denies gout. When was patient's last Mammogram screening? N/A Last Colonoscopy: no prior Anahi Ramirez LPN documented in this encounter [facility] 08-13-2023 Note HNO ID: [id number] Author: STACEY QUIJANO APRN.DIRECTOR OF EMPLOYEE DEVELOPMENT Service: ? Author Type: Nurse Practitioner Type: Progress Notes Filed: 08/13/2023 12:27 Note Text: Scheduling: Clinical DDI Triage Patient Name: Ema Headley Patient was verified by: Name/Date of Triage process was used for: patient complaint of hernia Symptoms: calling for a recurrent hernia located directly above his wifes belly button. 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 Alfred Quijano APRN.DIRECTOR OF EMPLOYEE DEVELOPMENT August 13, 2023 12:25 PM [facility] 08-13-2023 History of Presen t illness Narrative Scheduling: Clinical DDI Triage Patient Name: Ema Headley Patient was verified by: Name/Date of Triage process was used for: patient complaint of hernia Symptoms: calling for a recurrent hernia located directly above his wifes belly button. 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 Alfred Quijano APRN.CNP August 13, 2023 12:25 PM documented in this encounter [facility] 03-26-2023 Progress note Note Date/Time March 26, 2023 10:58am [facility] Medical Records Department [address] [place] [address] Progress Note - Hospitalist 03/26/23 1055 MR#: [id number] Acct: [id number] Name: EMA BROOKS Rep #:[id number] : 1990 33 From: Kan Gomez MD PCP: Dr. Jeff Foster, Status:ADM IN [id number] Reason for Visit Reason for Visit: Diagnoses Morbid (severe) obesity due to excess calories (03/23/23) Cellulitis of abdominal wall (03/23/23) Subjective Subjective Patient found to a significant induration involving the lower anterior abdominalwall. Ordered CT to r/o abscess Objective Data Objective Data Vital Signs: Vital Signs Temp Pulse Resp BP Pulse Ox O2 Del Method 98.0 F 64 16 113/61 97 Room Air 03/26/23 08:37 03/26/23 08:37 03/26/23 08:37 03/26/23 08:37 03/26/23 08:37 03/26/23 08:37 Oxygen Delivery Method Room Air Weight: 155 kg Body Mass Index (BMI) 58.3 Intake & Output: Intake and Output for Last 24 Hours 03/24/23 03/25/23 03/26/23 23:59 23:59 23:59 Intake Total 3241.33 / 3241.33 4508 / 4508 1657.33 / 1657.33 Balance 3241.33 / 3241.33 4508 / 4508 1657.33 / 1657.33 Lab / Micro Data 03/26/23 06:30 03/26/23 06:30 Labs: Laboratory Results - last 24 hr 03/26/23 00:37: Vancomycin Trough 10.0 03/26/23 06:30: WBC 6.8, RBC 4.07 L, Hgb 11.1 L, Hct 35.0 L, MCV 86.0, MCH 27.3,MCHC 31.7 L, RDW Std Deviation 45.0 H, RDW Coeff of Ankita 14.3, Plt Count 211, MPV9.5, Immature Gran % (Auto) 0.400, Neut % (Auto) 56.6, Lymph % (Auto) 29.7, Torrance% (Auto) 9.0, Eos % (Auto) 3.7, Baso % (Auto) 0.6, Absolute Neuts (auto) 3.9, Absolute Lymphs (auto) 2.02, Nucleated RBC % 0, Sodium 141, Potassium 4.7, Chloride 113 H, Carbon Dioxide 24.0, Anion Gap 4 L, BUN 11, Creatinine 0.68, Estim Creat Clear Calc 100.66, Est GFR (MDRD) Af Amer 126, Est GFR (MDRD) Non-Af104, BUN/Creatinine Ratio 16.1, Glucose 101, Calcium 8.5 Micro: Microbiology 03/23/23 18:46 Blood Culture (Wb) - Venous Blood Culture - Preliminary No growth in 48 hours. 03/23/23 18:35 Blood Culture (Wb) - Venous Blood Culture - Preliminary No growth in 48 hours. Physical Exam Narrative GENERAL: cooperative HEENT: Atraumatic; normocephalic EYES; Anicteric, Normal Conjunctiva NECK; supple, normal thyroid, RESPIRATORY: Diminished to auscultation CARDIOVASCULAR: Regular S1 S2, GI: soft, normoactive bowel sounds, : No Renal angle tenderness; EXTREMITIES: No edema, no clubbing, MUSCULOSKELETAL: no muscle wasting NEURO: Awake; no lateralizing signs. SKIN: An area of erythema and warmth involving the lower abdomen from the umbilicus to the pubic region with an open area below the umbilicus PSYCH; Flat affect Assessment & Plan Assessment/Plan (1) Abdominal wall cellulitis: (2) Morbid obesity due to excess calories: PLAN: Plan Patient is a 33-year-old female who presented with warmth redness involving the lower abdomen as well as fever and chills. An assessment of anterior abdominal wall cellulitis made admitted to regular nursing floor for further management 1. Anterior abdominal wall cellulitis ? Patient started on Unasyn, added vancomycin blood cultures sent ? 03/25/2023 slow response to therapy - 03/26/2023; Patient found to a significant induration involving the lower anterior abdominal wall. Ordered CT to r/o abscess 2. Class III obesity with BMI of 50.3 ? Complicating care 3. DVT prophylaxis ? SC Lovenox dose adjusted for weight Time spent in the patient's overall evaluation,decision-making process, review of diagnostic data, adjustment of management, discussion with other providers, nursing nursing and ancillary staff involved in patient's care documentation, 35minutes Charges/Coding Visit Charges Inpatient E&M: 03999 Subs Hosp L2 03/26/23 1058 <Electronically signed by Kan Gomez MD> Cosigner Signature (if applicable): CC: ~ Signed [facility] Work Phone: 1(875) 682-373010-16-2023 Consult note Author Pk Vásquez [facility] March 26, 2023 1:30am Note Date/Time March 26, 2023 1 :30am [facility] Medical Records Department [address] [place] [id number] Pharmacokinetic/Renal -Consult 03/26/23 0127 MR#: [id number] Acct: [id number] Name: EMA BROOKS Rep #:[id number] : 1990 33 From: Pk Vásquez PCP: Dr. Jeff Foster, DO Status:ADM IN Location: [place] [id number] Consult Antibiotic Management Pharmacy has been consulted to manage selected antiobiotic: Vancomycin Type of Intervention Type of Consult: Follow-up Suspected Infection Suspected Infection: Skin/Soft tissue Labs Labs: Sodium 141 mmol/L (136-145) 03/25/23 06:24 Potassium 3.7 mmol/L (3.5-5.1) 03/25/23 06:24 Chloride 113 mmol/L (98-107) H 03/25/23 06:24 Carbon Dioxide 23.0 mmol/L (21.0-32.0) 03/25/23 06:24 Anion Gap 5 (5-15) 03/25/23 06:24 BUN 10 mg/dL (7-18) 03/25/23 06:24 Creatinine 0.53 mg/dL (0.55-1.02) L 03/25/23 06:24 Est GFR (MDRD) Af Amer 170 mL/min (>60) 03/25/23 06:24 Est GFR (MDRD) Non-Af 141 mL/min (>60) 03/25/23 06:24 BUN/Creatinine Ratio 18.9 RATIO (10-20) 03/25/23 06:24 Glucose 89 mg/dL (74-106) 03/25/23 06:24 Vancomycin Trough 10.0 ug/mL (5.0-15.0) 03/26/23 00:37 Dosing Weight Weight used for dosin kg Estimated Creatinine Clearance Estimated Creatinine Clearance: >100 Goal Trough Goal Trough: 10-15 mcg/mL Pharmacy Plan for Drug Dosing Pharmacy Plan for Drug Dosing: Vancomycin trough level of 10.0 was within target range of 10-15. Will continue dosing at 1750mg q12h, and re-draw a trough level in two days. Pharmacy Service will continue to monitor and adjust dosing as required. Follow-Up Labs Follow-Up Labs: Trough: Vancomycin Date/Time Labs Ordered Labs to be done on [date and time ordered]: 03/28/23 @0030 03/26/23 0130 <Electronically signed by Pk gimenez> Date _ Pk Holliday Signature (if applicable): Date CC: ~ Signed [facility] Work Phone: 1(818) 541-618910-15-2023 Progress note Author Kan Gomez [facility] March 25, 2023 9:45am Note Date/Time March 25, 2023 7 :45am [facility] Medical Records Department [address] [place] [address] Progress Note - Hospitalist 03/25/23 0745 MR#: [id number] Acct: [id number] Name: CARYEMA Rep #:[id number] : 1990 33 From: Kan Gomez MD PCP: Dr. Jeff Foster, DO Status:ADM IN Location: [facility] [id number] Reason for Visit Reason for Visit: Diagnoses Morbid (severe) obesity due to excess calories (03/23/23) Cellulitis of abdominal wall (03/23/23) Subjective Subjective Patient admitted some improvement in the area of induration. Objective Data Objective Data Vital Signs: Vital Signs Temp Pulse Resp BP Pulse Ox O2 Del Method 98.1 F 66 18 106/57 L 99 Room Air 03/25/23 02:01 03/25/23 02:01 03/25/23 02:01 03/25/23 02:01 03/25/23 02:01 03/25/23 02:01 Oxygen Delivery Method Room Air Weight: 155 kg Body Mass Index (BMI) 58.3 Intake & Output: Intake and Output for Last 24 Hours 03/23/23 03/24/23 03/25/23 23:59 23:59 23:59 Intake Total 1032.83 / 1032.83 3241.33 / 3241.33 1637 / 1637 Balance 1032.83 / 1032.83 3241.33 / 3241.33 1637 / 1637 Lab / Micro Data 03/25/23 06:24 03/25/23 06:24 Labs: Laboratory Results - last 24 hr 03/25/23 06:24: WBC 6.8, RBC 4.07 L, Hgb 11.1 L, Hct 34.7 L, MCV 85.3, MCH 27.3,MCHC 32.0, RDW Std Deviation 45.2 H, RDW Coeff of Ankita 14.6, Plt Count 189, MPV 10.2, Immature Gran % (Auto) 0.100, Neut % (Auto) 59.5, Lymph % (Auto) 27.6, Torrance % (Auto) 9.8, Eos % (Auto) 2.6, Baso % (Auto) 0.4, Absolute Neuts (auto) 4.1, Absolute Lymphs (auto) 1.88, Nucleated RBC % 0, Sodium 141, Potassium 3.7, Chloride 113 H, Carbon Dioxide 23.0, Anion Gap 5, BUN 10, Creatinine 0.53 L, Estim Creat Clear Calc 129.15, Est GFR (MDRD) Af Amer 170, Est GFR (MDRD) Non-Af141, BUN/Creatinine Ratio 18.9, Glucose 89, Calcium 8.1 L, Phosphorus 2.3 L, Magnesium 2.2 Physical Exam Narrative GENERAL: cooperative HEENT: Atraumatic; normocephalic EYES; Anicteric, Normal Conjunctiva NECK; supple, normal thyroid, RESPIRATORY: Diminished to auscultation CARDIOVASCULAR: Regular S1 S2, GI: soft, normoactive bowel sounds, : No Renal angle tenderness; EXTREMITIES: No edema, no clubbing, MUSCULOSKELETAL: no muscle wasting NEURO: Awake; no lateralizing signs. SKIN: An area of erythema and warmth involving the lower abdomen from the umbilicus to the pubic region with an open area below the umbilicus PSYCH; Flat affect Assessment & Plan Assessment/Plan (1) Abdominal wall cellulitis: (2) Morbid obesity due to excess calories: PLAN: Plan Patient is a 33-year-old female who presented with warmth redness involving the lower abdomen as well as fever and chills. An assessment of anterior abdominal wall cellulitis made admitted to regular nursing floor for further management 1. Anterior abdominal wall cellulitis ? Patient started on Unasyn, added vancomycin blood cultures sent ? 03/25/2023 slow response to therapy 2. Class III obesity with BMI of 50.3 ? Complicating care 3. DVT prophylaxis ? SC Lovenox dose adjusted for weight Time spent in the patient's overall evaluation,decision-making process, review of diagnostic data, adjustment of management, discussion with other providers, nursing nursing and ancillary staff involved in patient's care documentation, 35minutes Charges/Coding Visit Charges Inpatient E&M: 89599 Subs Hosp L2 03/25/23 0945 <Electronically signed by Kan Gomez MD> Cosigner Signature (if applicable): CC: ~ Signed [facility] Work Phone: 1(510) 961-394110-14-2023 Consult note Author Sallie Kaplan [facility] March 24, 2023 4:49pm Note Date/Time March 24, 2023 4 :49pm [facility] Medical Records Department [address] [place] [address] Pharmacokinetic/Renal -Consult 03/24/23 1640 MR#: [id number] Acct: [id number] Name: CARYEMA Rep #:[id number] : 1990 33 From: Sallie Kaplan PCP: Dr. Jeff Foster, DO Status:ADM IN Y Location: MS3 BL620-3 Consult Antibiotic Management Pharmacy has been consulted to manage selected antiobiotic: Vancomycin Type of Intervention Type of Consult: New start Suspected Infection Suspected Infection: Skin/Soft tissue Labs Labs: Sodium 138 mmol/L (136-145) 03/24/23 06:18 Potassium 3.7 mmol/L (3.5-5.1) 03/24/23 06:18 Chloride 109 mmol/L (98-107) H 03/24/23 06:18 Carbon Dioxide 22.0 mmol/L (21.0-32.0) 03/24/23 06:18 Anion Gap 7 (5-15) 03/24/23 06:18 BUN 10 mg/dL (7-18) 03/24/23 06:18 Creatinine 0.64 mg/dL (0.55-1.02) 03/24/23 06:18 Est GFR (MDRD) Af Amer 137 mL/min (>60) 03/24/23 06:18 Est GFR (MDRD) Non-Af 114 mL/min (>60) 03/24/23 06:18 BUN/Creatinine Ratio 15.7 RATIO (10-20) 03/24/23 06:18 Glucose 83 mg/dL (74-106) 03/24/23 06:18 Goal Trough Goal Trough: 10-15 mcg/mL Pharmacy Plan for Drug Dosing Pharmacy Plan for Drug Dosing: NEW START IV VANCOMYCIN Consulting Physician: Dr. Gomez Indication: SSTI (cellulitis) Goal Trough: 10-15 SrCr: 0.64 CrCl: >100 ml/min Comments: patient had initial dose of vancomycin 2000mg IV x1 03/24 @1312 Vancomycin Dose: 1750mg IV Q12hr to start 03/25/23 @0100 Pending Level: 03/26/23 @0030, prior to 4th total dose vancomycin per protocol Pharmacy Service will continue to monitor and adjust dosing as required. 03/24/23 5174 <Electronically signed by Sallie Kaplan > Date _ Sallie Kaplan Cosigner Signature (if applicable): Date CC: ~ Signed [facility] Work Phone: 1([phone]) 180-454810-14-2023 Progress note Author Kan Gomez [facility] March 24, 2023 10:40am Note Date/Time March 24, 2023 7 :55am [facility] Medical Records Department [address] [place] [address] Progress Note - Hospitalist 03/24/23 0753 MR#: [id number] Acct: [id number] Name: EMA BROOKS Rep #:[id number] : 1990 33 From: Kan Gomez MD PCP: Dr. Jeff Foster, Status:ADM IN Location: [place] [address]-1 Reason for Visit Reason for Visit: Abdominal wall cellulitis Subjective Subjective Patient is a 33-year-old female who presented with warmth redness involving the lower abdomen as well as fever and chills. An assessment of anterior abdominal wall cellulitis made admitted to regular nursing floor for further management Objective Data Objective Data Vital Signs: Vital Signs Temp Pulse Resp BP Pulse Ox O2 Del Method 99.3 F H 78 18 122/71 H 97 Room Air 03/24/23 05:55 03/24/23 03:03 03/24/23 03:03 03/24/23 03:03 03/24/23 03:03 03/24/23 03:05 Oxygen Delivery Method Room Air Weight: 155 kg Body Mass Index (BMI) 58.3 Intake & Output: Intake and Output for Last 24 Hours 03/22/23 03/23/23 03/24/23 23:59 23:59 23:59 Intake Total 1032.83 / 1032.83 1317.33 / 1317.33 Balance 1032.83 / 1032.83 1317.33 / 1317.33 Lab / Micro Data 03/24/23 06:18 03/24/23 06:18 Labs: Laboratory Results - last 24 hr 03/23/23 18:35: WBC 10.1, RBC 4.66, Hgb 12.6, Hct 39.3, MCV 84.3, MCH 27.0, MCHC32.1, RDW Std Deviation 44.0 H, RDW Coeff of Ankita 14.4, Plt Count 180, MPV 10.0, Immature Gran % (Auto) 0.500, Neut % (Auto) 73.8 H, Lymph % (Auto) 15.0 L, Torrance % (Auto) 9.4, Eos % (Auto) 0.7, Baso % (Auto) 0.6, Absolute Neuts (auto) 7.4, Absolute Lymphs (auto) 1.51, Nucleated RBC % 0, PT 15.2 H, INR 1.2, APTT 39.3 H,Sodium 138, Potassium 3.6, Chloride 107, Carbon Dioxide 27.0, Anion Gap 4 L, BUN10, Creatinine 0.86, Estim Creat Clear Calc 79.59, Est GFR (MDRD) Af Amer 98, Est GFR (MDRD) Non-Af 81, BUN/Creatinine Ratio 11.7, Glucose 100, Lactic Acid 1.0, Calcium 8.9, Total Bilirubin 0.70, AST 18, ALT 26, Alkaline Phosphatase 60,Total Protein 7.2, Albumin 3.1 L, Globulin 4.1, Albumin/Globulin Ratio 0.8 L 03/23/23 19:45: Urine Color Yellow, Urine Clarity Clear, Urine pH 7.0, Ur Specific Snook 1.015, Urine Protein 30 H, Urine Glucose (UA) Normal, Urine Ketones 15 H, Urine Occult Blood 25 H, Urine Nitrite Negative, Urine Bilirubin Negative, Urine Urobilinogen Normal, Ur Leukocyte Esterase Negative, Urine RBC 0SEEN, Urine WBC 0 SEEN, Ur Squamous Epith Cells 0-5 SEEN, Urine Bacteria RARE, Urine Mucus 0 SEEN, Urine Yeast RARE 03/24/23 06:18: WBC 9.8, RBC 4.22, Hgb 11.3 L, Hct 35.6 L, MCV 84.4, MCH 26.8 L,MCHC 31.7 L, RDW Std Deviation 44.5 H, RDW Coeff of Ankita 14.5, Plt Count 175, MPV10.2, Immature Gran % (Auto) 0.400, Neut % (Auto) 68.1, Lymph % (Auto) 19.4, Torrance % (Auto) 10.9 H, Eos % (Auto) 0.9, Baso % (Auto) 0.3, Absolute Neuts (auto)6.6, Absolute Lymphs (auto) 1.89, Nucleated RBC % 0, Sodium 138, Potassium 3.7, Chloride 109 H, Carbon Dioxide 22.0, Anion Gap 7, BUN 10, Creatinine 0.64, EstimCreat Clear Calc 106.95, Est GFR (MDRD) Af Amer 137, Est GFR (MDRD) Non-Af 114, BUN/Creatinine Ratio 15.7, Glucose 83, Calcium 8.2 L Physical Exam Narrative GENERAL: cooperative HEENT: Atraumatic; normocephalic EYES; Anicteric, Normal Conjunctiva NECK; supple, normal thyroid, RESPIRATORY: Diminished to auscultation CARDIOVASCULAR: Regular S1 S2, GI: soft, normoactive bowel sounds, : No Renal angle tenderness; EXTREMITIES: No edema, no clubbing, MUSCULOSKELETAL: no muscle wasting NEURO: Awake; no lateralizing signs. SKIN: An area of erythema and warmth involving the lower abdomen from the umbilicus to the pubic region with an open area below the umbilicus PSYCH; Flat affect Assessment & Plan Assessment/Plan (1) Abdominal wall cellulitis: (2) Morbid obesity due to excess calories: PLAN: Plan Patient is a 33-year-old female who presented with warmth redness involving the lower abdomen as well as fever and chills. An assessment of anterior abdominal wall cellulitis made admitted to regular nursing floor for further management 1. Anterior abdominal wall cellulitis ? Patient started on Unasyn, added vancomycin blood cultures sent 2. Class III obesity with BMI of 50.3 ? Complicating care 3. DVT prophylaxis ? SC Lovenox dose adjusted for weight Time spent in the patient's overall evaluation,decision-making process, review of diagnostic data, adjustment of management, discussion with other providers, nursing nursing and ancillary staff involved in patient's care documentation,50 Minutes Charges/Coding Visit Charges Inpatient E&M: 94501 Subs Hosp L3 03/24/23 1040 <Electronically signed by Kan Gomez MD> Cosigner Signature (if applicable): CC: ~ Signed [facility] Work Phone: 1([phone]) 831-721210-14-2023 History and physical note Author Philip De La Cruz [facility] March 24, 2023 9:19am Note Date/Time March 23, 2023 8 :07pm [facility] Medical Records Department [address] [place] [address] H&P Exam - Hospitalist 03/23/232003 MR#: [id number] Acct: [id number] Name: EMA BROOKS Rep #:[id number] : 1990 33 From: Philip De La Cruz MD PCP: Dr. Jeff Foster, DO Status:ADM IN Location: [facility] TW750-2 HPI - General General Date of Admission: 03/23/23 Date of Service: 03/23/23 Chief Complaint: Lower abdomen redness HPI Narrative EMA BROOKS, is a 33 F with a significant history of morbid obesity who presents to the emergency department with erythema of her lower abdomen. Her symptoms started 2 days before presentation. Her symptoms started with chills and tenderness of the lower abdomen. Later on she developed erythema of the same site. She had a fever up with home temperature of about 101.6 Fahrenheit. She has anorexia. [facility] Medical History delivery delivered Morbid obesity due to excess calories Medical History no medical history Home Medications NK 03/23/23 [History Last Taken Unknown] Allergy/AdvReac Type Severity Reaction Status Date / Time No Known Allergies Allergy Verified 03/23/23 18:45 Family History other other (Denies knowledge of family medical history) Surgical History H/O hernia repair Surgical History no surgical history Social History household members: spouse and children Smoking Status: Never smoker substance use type: does not use ROS ROS Narrative Pertinent positives and pertinent negatives as noted in HPI. All other systems were reviewed and are negative Vital Signs Vital Signs Vital Signs: 03/23/23 18:05 03/23/23 18:05 03/23/23 18:18 Temperature 98.5 F 98.5 F 98.5 F Temperature Source Temporal Temporal Temporal Pulse Rate 84 84 85 Respiratory Rate 20 H 20 H 20 H Blood Pressure 120/66 120/66 118/63 Blood Pressure Mean 84 84 81 Pulse Ox 98 98 99 Oxygen Delivery Method Room Air Room Air Room Air 03/23/23 18:28 03/23/23 19:14 03/23/23 19:14 Temperature 101.1 F H 101.1 F H Temperature Source Oral Oral Pulse Rate 84 90 Respiratory Rate 35 H 28 H Blood Pressure 128/69 H 130/70 H Blood Pressure Mean 88 90 Pulse Ox 99 100 100 Oxygen Delivery Method Room Air Room Air Room Air Weight Weight: 158.304 kg Body Mass Index (BMI) 59.9 Physical Exam Narrative Physical exam: General: Morbidly obese Head: Normocephalic, atraumatic, no tenderness Eyes: Vision is grossly intact. EOMI ENT, no trauma, moist mucous membranes, no rhinorrhea Neck: Nontender, No thyromegaly. CVS: Regular rate and rhythm. S1-S2 present. No murmur, gallop or rub. Respiratory : clear to auscultation bilaterally, chest wall nontender Abdomen: Erythema of lower abdomen with induration, tender lower abdomen. normalbowel sounds : Deferred Back: Nontender, no CVA tenderness, no midline spinal tenderness, deformities, step-offs Extremities: Nontender full range of motion, no trauma Skin: Normal color; except lower abdomen as described above. Neuro: Alert, oriented, cranial nerves II through XII grossly intact. Psychiatry: Normal mood. Normal affect. Not depressed. Not anxious. Results Lab / Micro Data Attestation: I reviewed the patient's lab results. 03/24/23 06:18 03/24/23 06:18 Labs: Laboratory Results - last 24 hr 03/23/23 18:35: WBC 10.1, RBC 4.66, Hgb 12.6, Hct 39.3, MCV 84.3, MCH 27.0, MCHC32.1, RDW Std Deviation 44.0 H, RDW Coeff of Ankita 14.4, Plt Count 180, MPV 10.0, Immature Gran % (Auto) 0.500, Neut % (Auto) 73.8 H, Lymph % (Auto) 15.0 L, [place] % (Auto) 9.4, Eos % (Auto) 0.7, Baso % (Auto) 0.6, Absolute Neuts (auto) 7.4, Absolute Lymphs (auto) 1.51, Nucleated RBC % 0, PT 15.2 H, INR 1.2, APTT 39.3 H,Sodium 138, Potassium 3.6, Chloride 107, Carbon Dioxide 27.0, Anion Gap 4 L, BUN10, Creatinine 0.86, Estim Creat Clear Calc 79.59, Est GFR (MDRD) Af Amer 98, Est GFR (MDRD) Non-Af 81, BUN/Creatinine Ratio 11.7, Glucose 100, Lactic Acid 1.0, Calcium 8.9, Total Bilirubin 0.70, AST 18, ALT 26, Alkaline Phosphatase 60,Total Protein 7.2, Albumin 3.1 L, Globulin 4.1, Albumin/Globulin Ratio 0.8 L Assessment & Plan Assessment/Plan (1) Abdominal wall cellulitis: (2) Morbid obesity due to excess calories: PLAN: Plan Abdominal wall cellulitis CBC showed normal white counts Started on Unasyn in the emergency department and continued. BMI: 58 3 kg/m?. Complicates care. Lifestyle modification recommended. Time spent in the patient's overall evaluation,decision-making process, review of diagnostic data, adjustment of management, discussion with other providers, nursing nursing and ancillary staff involved in patient's care documentation, 40minutes. DVT prophylaxis Subcutaneous Lovenox ordered. Charges/Coding Visit Charges Inpatient E&M: 66583 Init Hosp L2 03/24/23 0919 <Electronically signed by Philip De La Cruz MD> Cosigner Signature (if applicable): CC: Dr. Philip De La Cruz MD; Dr. Jeff Foster DO~ Signed [facility] Work Phone: [phone] Discharge summary Author Kurtis Alexander [facility] March 23, 2023 9:07pm Note Date/Time March 23, 2023 6 :31pm [facility] Medical Records Department [address] [place] [address] Emergency Department Summary 03/23/23 MR#: [id number] Acct: [id number] Name: EMA BROOKS Rep #:[id number] : 1990 33 From: Kurtis Alexander MD PCP: Dr. Jeff Foster DO Status:ADM IN [facility] History of Present Illness Chief Complaint: Cellulitis Detail of Chief Complaint: Abdomen cellulitis Informant: patient Onset/Context/Timing Onset: Yesterday Context: Sudden Onset Timing: Continuous Quality: Erythematous rash Location: Inferior umbilicus to the pubic symphysis Current Severity: Moderate Maximum Severity: Moderate Worsened by: Nothing Relieved by: Nothing Associated Symptoms Associated Symptoms: Subjective fever with chills Narrative Narrative: Is a 33-year-old female with no significant past medical history presents with cellulitis of the abdomen. This started yesterday. She complains of subjectivefever with chills. She denies history medic fever, heart murmur, mitral valve prolapse and is not immune suppressed. She is on no dedication. She has no allergies to antibiotics. She denies nausea, vomiting or diarrhea. She denies dysuria, frequency, urgencyor hematuria. She denies respiratory or cardiac symptoms. Prior similar symptoms: No Recent Illness/Hospitalization: No PFSH PFSH Medical History Morbid obesity due to excess calories Medical History no medical history no medical history Home Medications NK 03/23/23 [History Last Taken Unknown] Allergy/AdvReac Type Severity Reaction Status Date / Time No Known Allergies Allergy Verified 03/23/23 18:45 Family History no significant family his Surgical History H/O hernia repair Surgical History no surgical history no surgical history Social History household members: spouse and children Smoking Status: Never smoker substance use type: does not use ROS ROS ED Constitutional Constitutional ED: Reports chills, fever(s) and subjective; Denies sweats or weight loss Eyes Eyes: Denies blurry vision, change in vision or diplopia ENT ENT ED: Denies ear pain, rhinorrhea or sore throat Cardiovascular Cardiovascular: Denies chest pain, orthopnea, palpitations or racing heartbeat Respiratory/Chest Respiratory/Chest: Denies cough, dyspnea, dyspnea on exertion or orthopnea Gastrointestinal Gastrointestinal: Denies abdominal pain, constipation, diarrhea, melena, nausea or vomiting Genitourinary Genitourinary ED: Denies dysuria, hematuria or urinary frequency Musculoskeletal Musculoskeletal: Denies arthralgias or myalgias Integumentary Reports rash; Denies abscess Neurologic Neurologic: Denies headache(s), paresthesias or weakness Hematologic/Lymphatic Hematologic/Lymphatic: Reports systems reviewed and no addt'l complaints, exceptas documented Allergic/Immunologic Allergic/Immunologic ED: Denies mouth swelling or tongue swelling EXAM Physical Exam Const Vital Signs: 03/23/23 18:05 03/23/23 18:05 03/23/23 18:18 Temperature 98.5 F 98.5 F 98.5 F Temperature Source Temporal Temporal Temporal Pulse Rate 84 84 85 Respiratory Rate 20 H 20 H 20 H Blood Pressure 120/66 120/66 118/63 Blood Pressure Mean 84 84 81 Pulse Ox 98 98 99 Oxygen Delivery Method Room Air Room Air Room Air 03/23/23 18:28 03/23/23 19:14 03/23/23 19:14 Temperature 101.1 F H 101.1 F H Temperature Source Oral Oral Pulse Rate 84 90 Respiratory Rate 35 H 28 H Blood Pressure 128/69 H 130/70 H Blood Pressure Mean 88 90 Pulse Ox 99 100 100 Oxygen Delivery Method Room Air Room Air Room Air Positive well nourished, well developed and obese General Appearance ED: well developed and NAD; Negative for cyanotic or diaphoretic Nutritional Appearance: obese HEENT Reports moist mucous membranes HEENT Narrative: Head is normocephalic and atraumatic. Ears are normal. Nares are patent. Posterior pharynx is normal. Eyes PERRL and EOMs intact bilaterally General Eye ED: Negative for pale conjunctiva or scleral icterus Neck no lymphadenopathy, supple and no JVD Neck Narrative: There is no cervical lymphadenopathy. Chest Wall inspection of chest normal Resp normal respiratory effort and clear to auscultation bilaterally Cardio regular rate, regular rhythm, S1 normal heart sound, S2 normal heart sound and no murmurs GI non-distended and no masses; Negative for normal to inspection, nondistended, normoactive bowel sounds, non-tender or hepatosplenomegaly GI Narrative: There is tenderness over the indurated area. There is no crepitus appreciated. The rash is erythematous and is extensive. Rash was outlined with marker pen. Back/Spine no CVA tenderness Thoracic Spine / Upper Back: Negative for thoracic spinal tenderness Extremity normal to inspection General Extremety ED: Negative for tenderness Neuro oriented x3, CN's II-XII intact bilaterally and no sensory deficits noted Sensorium / Orientation: alert Motor Exam: strength 5/5 throughout Psych mental status grossly normal Skin Skin Narrative: LymphThis involving the inferior portion of the abdomen with induration, erythema gyrus. There is no inguinal lymphadenopathy. MDM MDM MDM Narrative Medical decision making narrative: Cellulitis of the abdominal wall. Patient may have sepsis. Sepsis work-up was undertaken. Since she has no antibiotic allergies she was started on Unasyn. Patient is tachypneic febrile with source. She has sepsis without endorgan dysfunction. We will contact hospitalist for admission. Lab Data Attestation: I reviewed the patient's lab results. Lab results narrative: White count is upper end of normal. There is slight shift. H&H is under markable. PT PTT are slightly did. Comprehensive metabolic panel is unremarkable. Lactate is normal. Labs: Laboratory Results - last 24 hr 03/23/23 03/23/23 18:35 19:45 WBC 10.1 RBC 4.66 Hgb 12.6 Hct 39.3 MCV 84.3 MCH 27.0 MCHC 32.1 RDW Std Deviation 44.0 H RDW Coeff of Ankita 14.4 Plt Count 180 MPV 10.0 Immature Gran % (Auto) 0.500 Neut % (Auto) 73.8 H Lymph % (Auto) 15.0 L Torrance % (Auto) 9.4 Eos % (Auto) 0.7 Baso % (Auto) 0.6 Absolute Neuts (auto) 7.4 Absolute Lymphs (auto) 1.51 Nucleated RBC % 0 PT 15.2 H INR 1.2 APTT 39.3 H Sodium 138 Potassium 3.6 Chloride 107 Carbon Dioxide 27.0 Anion Gap 4 L BUN 10 Creatinine 0.86 Estim Creat Clear Calc 79.59 Est GFR (MDRD) Af Amer 98 Est GFR (MDRD) Non-Af 81 BUN/Creatinine Ratio 11.7 Glucose 100 Lactic Acid 1.0 Calcium 8.9 Total Bilirubin 0.70 AST 18 ALT 26 Alkaline Phosphatase 60 Total Protein 7.2 Albumin 3.1 L Globulin 4.1 Albumin/Globulin Ratio 0.8 L Urine Color Yellow Urine Clarity Clear Urine pH 7.0 Ur Specific Snook 1.015 Urine Protein 30 H Urine Glucose (UA) Normal Urine Ketones 15 H Urine Occult Blood 25 H Urine Nitrite Negative Urine Bilirubin Negative Urine Urobilinogen Normal Ur Leukocyte Esterase Negative Urine RBC 0 SEEN Urine WBC 0 SEEN Ur Squamous Epith Cells 0-5 SEEN Urine Bacteria RARE Urine Mucus 0 SEEN Urine Yeast RARE Treatment and Re-Evaluation :: Harmed by the nurse at 1915 the patient had shaking chills and complained of fever. Repeat temperature is 101.1. Discharge Plan Dx/Rx/DC Orders Clinical Impression: Abdominal wall cellulitis, Sepsis without acute organ dysfunction Disposition Disposition: Acute Care Hospital [facility] What to do if you have Problems For any increased pain, shortness of breath, bleeding, nausea or vomiting, chestpain, or any unexpected problems, contact your Primary Care Provider. Call [facility] ([phone]) or report to the closest Emergency Room. Call 911 if necessary. 03/23/232106 <Electronically signed by Kurtis Alexander MD> Cosigner Signature (if applicable): CC: Dr. Jeff Foster DO ~ Signed [facility] Work Phone: [phone] 646-255810-13-2023 Discharge summary Author Kurtis [facility] March 23, 2023 9:07pm Note Date/Time March 23, 2023 6 :31pm [facility] Medical Records Department [address] [place] [address] Emergency Department Summary 03/23/23 MR#: [id number] Acct: [id number] Name: EMA BROOKS Rep #:[id number] : 1990 33 From: Kurtis Alexander MD PCP: Dr. Jeff Foster DO Status:ADM IN Location: [place] [address] HPI History of Present Illness Chief Complaint: Cellulitis Detail of Chief Complaint: Abdomen cellulitis Informant: patient Onset/Context/Timing Onset: Yesterday Context: Sudden Onset Timing: Continuous Quality: Erythematous rash Location: Inferior umbilicus to the pubic symphysis Current Severity: Moderate Maximum Severity: Moderate Worsened by: Nothing Relieved by: Nothing Associated Symptoms Associated Symptoms: Subjective fever with chills Narrative Narrative: Is a 33-year-old female with no significant past medical history presents with cellulitis of the abdomen. This started yesterday. She complains of subjectivefever with chills. She denies history medic fever, heart murmur, mitral valve prolapse and is not immune suppressed. She is on no dedication. She has no allergies to antibiotics. She denies nausea, vomiting or diarrhea. She denies dysuria, frequency, urgencyor hematuria. She denies respiratory or cardiac symptoms. Prior similar symptoms: No Recent Illness/Hospitalization: No PFSH PFSH Medical History Morbid obesity due to excess calories Medical History no medical history no medical history Home Medications NK 03/23/23 [History Last Taken Unknown] Allergy/AdvReac Type Severity Reaction Status Date / Time No Known Allergies Allergy Verified 03/23/23 18:45 Family History no significant family his Surgical History H/O hernia repair Surgical History no surgical history no surgical history Social History household members: spouse and children Smoking Status: Never smoker substance use type: does not use ROS ROS ED Constitutional Constitutional ED: Reports chills, fever(s) and subjective; Denies sweats or weight loss Eyes Eyes: Denies blurry vision, change in vision or diplopia ENT ENT ED: Denies ear pain, rhinorrhea or sore throat Cardiovascular Cardiovascular: Denies chest pain, orthopnea, palpitations or racing heartbeat Respiratory/Chest Respiratory/Chest: Denies cough, dyspnea, dyspnea on exertion or orthopnea Gastrointestinal Gastrointestinal: Denies abdominal pain, constipation, diarrhea, melena, nausea or vomiting Genitourinary Genitourinary ED: Denies dysuria, hematuria or urinary frequency Musculoskeletal Musculoskeletal: Denies arthralgias or myalgias Integumentary Reports rash; Denies abscess Neurologic Neurologic: Denies headache(s), paresthesias or weakness Hematologic/Lymphatic Hematologic/Lymphatic: Reports systems reviewed and no addt'l complaints, exceptas documented Allergic/Immunologic Allergic/Immunologic ED: Denies mouth swelling or tongue swelling EXAM Physical Exam Const Vital Signs: 03/23/23 18:05 03/23/23 18:05 03/23/23 18:18 Temperature 98.5 F 98.5 F 98.5 F Temperature Source Temporal Temporal Temporal Pulse Rate 84 84 85 Respiratory Rate 20 H 20 H 20 H Blood Pressure 120/66 120/66 118/63 Blood Pressure Mean 84 84 81 Pulse Ox 98 98 99 Oxygen Delivery Method Room Air Room Air Room Air 03/23/23 18:28 03/23/23 19:14 03/23/23 19:14 Temperature 101.1 F H 101.1 F H Temperature Source Oral Oral Pulse Rate 84 90 Respiratory Rate 35 H 28 H Blood Pressure 128/69 H 130/70 H Blood Pressure Mean 88 90 Pulse Ox 99 100 100 Oxygen Delivery Method Room Air Room Air Room Air Positive well nourished, well developed and obese General Appearance ED: well developed and NAD; Negative for cyanotic or diaphoretic Nutritional Appearance: obese HEENT Reports moist mucous membranes HEENT Narrative: Head is normocephalic and atraumatic. Ears are normal. Nares are patent. Posterior pharynx is normal. Eyes PERRL and EOMs intact bilaterally General Eye ED: Negative for pale conjunctiva or scleral icterus Neck no lymphadenopathy, supple and no JVD Neck Narrative: There is no cervical lymphadenopathy. Chest Wall inspection of chest normal Resp normal respiratory effort and clear to auscultation bilaterally Cardio regular rate, regular rhythm, S1 normal heart sound, S2 normal heart sound and no murmurs GI non-distended and no masses; Negative for normal to inspection, nondistended, normoactive bowel sounds, non-tender or hepatosplenomegaly GI Narrative: There is tenderness over the indurated area. There is no crepitus appreciated. The rash is erythematous and is extensive. Rash was outlined with marker pen. Back/Spine no CVA tenderness Thoracic Spine / Upper Back: Negative for thoracic spinal tenderness Extremity normal to inspection General Extremety ED: Negative for tenderness Neuro oriented x3, CN's II-XII intact bilaterally and no sensory deficits noted Sensorium / Orientation: alert Motor Exam: strength 5/5 throughout Psych mental status grossly normal Skin Skin Narrative: LymphThis involving the inferior portion of the abdomen with induration, erythema gyrus. There is no inguinal lymphadenopathy. MDM MDM MDM Narrative Medical decision making narrative: Cellulitis of the abdominal wall. Patient may have sepsis. Sepsis work-up was undertaken. Since she has no antibiotic allergies she was started on Unasyn. Patient is tachypneic febrile with source. She has sepsis without endorgan dysfunction. We will contact hospitalist for admission. Lab Data Attestation: I reviewed the patient's lab results. Lab results narrative: White count is upper end of normal. There is slight shift. H&H is under markable. PT PTT are slightly did. Comprehensive metabolic panel is unremarkable. Lactate is normal. Labs: Laboratory Results - last 24 hr 03/23/23 03/23/23 18:35 19:45 WBC 10.1 RBC 4.66 Hgb 12.6 Hct 39.3 MCV 84.3 MCH 27.0 MCHC 32.1 RDW Std Deviation 44.0 H RDW Coeff of Ankita 14.4 Plt Count 180 MPV 10.0 Immature Gran % (Auto) 0.500 Neut % (Auto) 73.8 H Lymph % (Auto) 15.0 L [place]rance % (Auto) 9.4 Eos % (Auto) 0.7 Baso % (Auto) 0.6 Absolute Neuts (auto) 7.4 Absolute Lymphs (auto) 1.51 Nucleated RBC % 0 PT 15.2 H INR 1.2 APTT 39.3 H Sodium 138 Potassium 3.6 Chloride 107 Carbon Dioxide 27.0 Anion Gap 4 L BUN 10 Creatinine 0.86 Estim Creat Clear Calc 79.59 Est GFR (MDRD) Af Amer 98 Est GFR (MDRD) Non-Af 81 BUN/Creatinine Ratio 11.7 Glucose 100 Lactic Acid 1.0 Calcium 8.9 Total Bilirubin 0.70 AST 18 ALT 26 Alkaline Phosphatase 60 Total Protein 7.2 Albumin 3.1 L Globulin 4.1 Albumin/Globulin Ratio 0.8 L Urine Color Yellow Urine Clarity Clear Urine pH 7.0 Ur Specific Snook 1.015 Urine Protein 30 H Urine Glucose (UA) Normal Urine Ketones 15 H Urine Occult Blood 25 H Urine Nitrite Negative Urine Bilirubin Negative Urine Urobilinogen Normal Ur Leukocyte Esterase Negative Urine RBC 0 SEEN Urine WBC 0 SEEN Ur Squamous Epith Cells 0-5 SEEN Urine Bacteria RARE Urine Mucus 0 SEEN Urine Yeast RARE Treatment and Re-Evaluation :: Harmed by the nurse at 1915 the patient had shaking chills and complained of fever. Repeat temperature is 101.1. Discharge Plan Dx/Rx/DC Orders Clinical Impression: Abdominal wall cellulitis, Sepsis without acute organ dysfunction Disposition Disposition: [facility] What to do if you have Problems For any increased pain, shortness of breath, bleeding, nausea or vomiting, chestpain, or any unexpected problems, contact your Primary Care Provider. Call [facility] ([phone]) or report to the closest Emergency Room. Call 911 if necessary. 03/23/232106 <Electronically signed by Kurtis Alexander MD> Cosigner Signature (if applicable): CC: Dr. Jeff Foster DO ~ Signed [facility] Work Phone: Consult note Author Lb Osborne [facility] March 26, 2023 1:49pm Note Date/Time March 26, 2023 1 :49pm [facility] Medical Records Department [address] [place] [address] Counseling Note - Pharmacy 03/26/23 1348 MR#: [id number] Acct: [id number] Name: EMA BROOKS Rep #:[id number] : 1990 33 From: Lb Osborne PCP: Dr. Jeff Foster DO Status:ADM IN [facility] has performed discharge medication reconciliation and counseling for this patient. The patient's discharge medication list was reviewed for discrepancies and discrepancies were resolved. The patient was counseled on the following discharge medications and changes in medications for homegoing were reviewed. The Reason for Use, instructions for use, and potential side effects were reviewed for all new medications. The patient's questions regarding all of their medications were answered. 1. Cefdinir 300 mg PO Q12H x 10 days The patient was able to verbally demonstrate an understanding of their dischargemedications. Medications at Discharge Home Medications cefdinir 300 mg capsule 300 mg PO BID #20 caps 03/26/23 03/26/23 1349 <Electronically signed by Lb gambino> Date _ Lb Osborne Cosigner Signature (if applicable): Date CC: ~ Signed [facility] Work Phone: Discharge summary Author Kan Gomez [facility] March 26, 2023 12:44pm Note Date/Time March 26, 2023 1 2:39pm [facility] Medical Records Department [address] [place] [address] Discharge Summary 03/26/23 1236 MR#: [id number] Acct: [id number] Name: EMA BROOKS Rep #:[id number] : 1990 33 From: Kan Gomez MD PCP: Dr. Jeff Foster, DO Status:ADM IN [id number] Providers Date of Admission: 03/23/23 Date of Discharge: 03/26/23 Primary Care Physician: Dr. Jeff Foster, Reason For Visit: CELLULITIS; ABDOMINAL WALL Diagnosis Discharge Diagnosis (1) Abdominal wall cellulitis: Status: Acute Code(s): L03.311 - Cellulitis of abdominal wall (2) Morbid obesity due to excess calories: Status: Acute Code(s): E66.01 - Morbid (severe) obesity due to excess calories Plan Patient is a 33-year-old female who presented with warmth redness involving the lower abdomen as well as fever and chills. An assessment of anterior abdominal wall cellulitis made admitted to regular nursing floor for further management 1. Anterior abdominal wall cellulitis ? Patient started on Unasyn, added vancomycin blood cultures sent ? 03/25/2023 slow response to therapy - 03/26/2023; Patient found to a significant induration involving the lower anterior abdominal wall. Ordered CT to r/o abscess -CT demonstrated thickening of the anterior abdominal wall above the level of the umbilicus could be due to umbilical hernia repair. Inflammatory or infectious process is possible. No evidence of drainable abscess. Patient was discharged home with a 10-day course of cefdinir and instructed to follow-up with primary care physician for further management 2. Class III obesity with BMI of 50.3 ? Complicating care 3. DVT prophylaxis ? SC Lovenox dose adjusted for weight Time spent in the patient's overall evaluation,decision-making process, review of diagnostic data, adjustment of management, discussion with other providers, nursing nursing and ancillary staff involved in patient's care documentation, 35minutes Medications at Discharge Home Medications cefdinir 300 mg capsule 300 mg PO BID #20 caps 03/26/23 Hospital Course Summary of Care Provided Minutes Spent on Discharge: 35 Physical Exam Narrative GENERAL: cooperative HEENT: Atraumatic; normocephalic EYES; Anicteric, Normal Conjunctiva NECK; supple, normal thyroid, RESPIRATORY: Diminished to auscultation CARDIOVASCULAR: Regular S1 S2, GI: soft, normoactive bowel sounds, : No Renal angle tenderness; EXTREMITIES: No edema, no clubbing, MUSCULOSKELETAL: no muscle wasting NEURO: Awake; no lateralizing signs. SKIN: An area of erythema and warmth involving the lower abdomen PSYCH; Flat affect Weight / BMI Weight Weight: 155 kg Body Mass Index (BMI) 58.3 ABG / Lab / Microbiology Data 03/26/23 06:30 03/26/23 06:30 Laboratory: Laboratory Results - last 24 hr 03/26/23 00:37: Vancomycin Trough 10.0 03/26/23 06:30: WBC 6.8, RBC 4.07 L, Hgb 11.1 L, Hct 35.0 L, MCV 86.0, MCH 27.3,MCHC 31.7 L, RDW Std Deviation 45.0 H, RDW Coeff of Ankita 14.3, Plt Count 211, MPV9.5, Immature Gran % (Auto) 0.400, Neut % (Auto) 56.6, Lymph % (Auto) 29.7, [place]% (Auto) 9.0, Eos % (Auto) 3.7, Baso % (Auto) 0.6, Absolute Neuts (auto) 3.9, Absolute Lymphs (auto) 2.02, Nucleated RBC % 0, Sodium 141, Potassium 4.7, Chloride 113 H, Carbon Dioxide 24.0, Anion Gap 4 L, BUN 11, Creatinine 0.68, Estim Creat Clear Calc 100.66, Est GFR (MDRD) Af Amer 126, Est GFR (MDRD) Non-Af104, BUN/Creatinine Ratio 16.1, Glucose 101, Calcium 8.5 Microbiology: Microbiology 03/23/23 18:46 Blood Culture (Wb) - Venous Blood Culture - Preliminary No growth in 48 hours. 03/23/23 18:35 Blood Culture (Wb) - Venous Blood Culture - Preliminary No growth in 48 hours. Radiography Diagnostic Testing: Radiology Impression Abdomen/Pelvis CT 03/26/23 09:08 IMPRESSION: 1. Thickening of the anterior abdominal wall above the level of the umbilicus could be due to umbilical hernia repair. Inflammatory or infectious process is possible. No evidence of drainable abscess. 2. Ventral hernia containing fat. 3. Otherwise no focal acute inflammatory process. Electronically Signed: Jose Raul Martins MD at 12:06 EDT , D/C Instructions Discharge Diet: No restrictions Discharge Activity: Return to Normal Activity Call your doctor if you observe: Fever of 101 or Higher, Shortness of breath, Fainting spells and Chest pain Meaningful Use Info Meaningful Use Diagnoses (Choose all that apply): None applicable Discharge Plan Admission Admit Date/Time: 03/23/23 19:53 Attending Provider: Kan Gomez Primary Care Provider: Jeff Foster Consulting Providers: Philip De La Cruz Discharge Orders/Prescriptions Prescriptions: New cefdinir 300 mg capsule 300 mg PO BID Qty: 20 0RF Referrals / Follow Up: Jeff Foster DO [Primary Care Provider] - 03/27/23 Disposition Disposition (needs filled in before D/C Order can be placed): Home, Self Care Charges/Coding Visit Charges Inpatient E&M: 44527 Disch Hosp >30min 03/26/23 1244 <Electronically signed by Kan Gomez MD> Cosigner Signature (if applicable): CC: Dr. Kan Gomez MD; Dr. Jeff Foster DO~ Signed [facility] Work Phone: Evaluation note* Diagnosis Onset Date Resolution Status Abdominal wall cellulitis ac claudio Morbid obesity due to excess calories acute Sepsis without acute organ dysfunction acute [facility] Work Phone: Evaluation note* Diagnosis Incisional hernia, without obstruction or gangrene- Primary Incisional hernia without mention of obstruction or gangrene [facility] Incisional hernia, without obstruction or gangrene Incisional hernia without mention of obstruction or gangrene [facility] Diagnosis Incisional hernia, without obstruction or gangrene- Primary Incisional hernia without mention of obstruction or gangrene [facility] Diagnosis Pannus, abdominal- Primary Localized adiposity documented in this encounter [facility] note* Diagnosis Class 3 severe obesity due to excess calories with body mass index (BMI) of 60.0 to 69.9 in adult, unspecified whether serious comorbidity present (HCC)- Primary Dietary counseling and surveillance Dietary surveillance and counseling documented in this encounter [facility] note* Diagnosis Class 3 severe obesity with body mass index (BMI) of 60.0 to 69.9 in adult, unspecified obesity type, unspecified whether serious comorbidity present (HCC)- Primary [facility] Diagnosis Vitamin D deficiency- Primary Unspecified vitamin D deficiency Class 3 severe obesity due to excess calories with body mass index (BMI) of 60.0 to 69.9 in adult, unspecified whether serious comorbidity present (HCC) documented in this encounter [facility] note* Diagnosis Incisional hernia, without obstruction or gangrene- Primary Incisional hernia without mention of obstruction or gangrene Morbid obesity (HCC) Morbid obesity documented in this encounter [facility] note* Diagnosis Incisional hernia, without obstruction or gangrene Incisional hernia without mention of obstruction or gangrene documented in this encounter [facility] note* Diagnosis Incisional hernia, without obstruction or gangrene- Primary Incisional hernia without mention of obstruction or gangrene Morbid obesity (HCC) Morbid obesity Dietary counseling and surveillance Dietary surveillance and counseling documented in this encounter [facility] for visit Narrative* MRI/CT (Routine) - Authorized Specialty Diagnoses / Procedures Referred By Viktorac t Referred To Contact CT IMAGING Diagnoses Incisional hernia, without obstruction or gangrene Procedures CT ABD/PEL WO IVCON CT ABD & PELVIS W/O CONTRAST Alissa Fisher, [employer].DIRECTOR OF EMPLOYEE DEVELOPMENT [address] [address] Phone: tel: fax: [place] [address] Referral ID Status Reason Start Date Expiration Date Visits Requested Visits Authorized [id number] Authorized Auto-Generate d Referral Patient Cleared - Qualified 100% FAS 01/22/2025 04/22/2025 99 99 [facility] Summary Purpose Family History No Family History Records FoundNo Family History Records FoundNo Family History Records FoundNo Family History Records FoundNo Family History Records Found Advance Directives No Advanced Directives Records Found Advance Directive Response Recorded Date/ Time Living Will No March 23 6:05pm Power of [employer]razzo Finisher Helper No March 23, 2023 6:05pm Advance Directive Response Recorded Date/ Time Living Will No March 23 9:34pm Power of [employer]razzo Finisher Helper No March 23, 2023 9:34pm Chief Complaint and Reason for Visit Chief Complaint CELLULITIS; ABDOMINA L WALL Reason for Visit Abdominal wall cellu litis Morbid obesity due to excess calories Sepsis without acute organ dysfunction Chief Complaint CELLULITIS; ABDOMINA L WALL CELLULITIS; ABDOMINAL WALL CELLULITIS; ABDOMINAL WALL CELLULITIS; ABDOMINAL WALL CELLULITIS; ABDOMINAL WALL Reason for Visit Abdominal wall cellu litis Morbid obesity due to excess calories Sepsis without acute organ dysfunction Reason for Referral Specialty Diagnoses / Procedures Referred By Agustin ramesh Referred To Contact CT IMAGING Diagnoses Incisional hernia, without obstruction or gangrene Procedures CT ABD/PEL WO IVCON CT ABD & PELVIS W/O CONTRAST Daniel Simon MD [address] [address] [place] [address] Referral ID Status Reason Start Date Expiration Date Visits Requested Visits Authorized [id number] Pending Review Auto-Generat ed Referral 09/13/2023 10/12/2024 1 1 Specialty Diagnoses / Procedures Referred By Agustin ramesh Referred To Contact Endocrinology Diagnoses Class 3 severe obesity with body mass index (BMI) of 60.0 to 69.9 in adult, unspecified obesity type, unspecified whether serious comorbidity present (HCC) Procedures CONSULT TO ENDOCRINOLOGY OFFICE/OUTPATIENT [facility] 60 MINUTES Christiana Goodson MD [address] [place] [address] Referral ID Status Reason Start Date Expiration Date Visits Requested Visits Authorized [id number] Authorized PCP Requested Referral 02/07/2024 02/06/2025 1 1 Additional Source Comments INFORMATION SOURCE (unrecogn ized section and content) DATE CREATED AUTHOR 12/05/2017 [facility] ([place]) DATE CREATED AUTHOR AUTHOR'S ORGANIZ ATION 06/19/2018 [facility] DATE CREATED AUTHOR AUTHOR'S ORGANIZ ATION 10/23/2020 [facility] ([place]) DATE CREATED AUTHOR AUTHOR'S ORGANIZ ATION 08/14/2023 [facility] DATE CREATED AUTHOR AUTHOR'S ORGANIZ ATION 02/21/2025 [facility] Care Teams (unrecognized sec tion and content) Team Status: Active Member Role Status Dates Dr. Jeff Foster , Primary Care Provider Active Team Status: Active Member Role Status Dates Dr. Jeff Foster DO Primary Care Provider Active Dr. Kurtis Alexander MD Emergency Provider Active Dr. Philip De La Cruz MD Admit Provider, Attending Pro vider Active Team Status: Active Member Role Status Dates Dr. Jeff Foster DO Primary Care Provider Active Dr. Kurtis Alexander MD Emergency Provider Active Dr. Philip De La Cruz MD Admit Provider, Attending Provider, Other Provider Active Dr. Kan Gomez MD Other Provider Active Team Status: Active Member Role Status Dates Dr. Jeff Foster DO Primary Care Provider Active Dr. Kurtis Alexander MD Emergency Provider Active Dr. Philip De La Cruz MD Admit Provider, Other Provide r Active Dr. Kan Gomez MD Attending Provider, Other Provid er Active Team Status: Inactive Member Role Status Dates Dr. Jeff Foster DO Primary Care Provider Active Dr. Kurtis Alexander MD Emergency Provider Active Dr. Philip De La Cruz MD Admit Provider, Other Provide r Active Dr. Kan Gomez MD Attending Provider Active Goals (unrecognized section and content) Goals may be documented in a n alternate section Source Comments (unrecognize d section and content) In the event this informatio n is protected by the Federal Confidentiality of Alcohol and Drug Abuse Patient Records regulations: The Federal rules restrict any use of the information to criminally investigate or prosecute any alcohol or drug abuse patient.[facility] the event this information is protected by the Federal Confidentiality of Alcohol and Drug Abuse Patient Records regulations: The Federal rules restrict any use of the information to criminally investigate or prosecute any alcohol or drug abuse patient.[facility] Center[facility] the event this information is protected by the Federal Confidentiality of Alcohol and Drug Abuse Patient Records regulations: The Federal rules restrict any use of the information to criminally investigate or prosecute any alcohol or drug abuse patient.[facility] the event this information is protected by the Federal Confidentiality of Alcohol and Drug Abuse Patient Records regulations: The Federal rules restrict any use of the information to criminally investigate or prosecute any alcohol or drug abuse patient.[facility] Center[facility] the event this information is protected by the Federal Confidentiality of Alcohol and Drug Abuse Patient Records regulations: The Federal rules restrict any use of the information to criminally investigate or prosecute any alcohol or drug abuse patient.[facility] Center[facility] the event this information is protected by the Federal Confidentiality of Alcohol and Drug Abuse Patient Records regulations: The Federal rules restrict any use of the information to criminally investigate or prosecute any alcohol or drug abuse patient.[facility] Center[facility] the event this information is protected by the Federal Confidentiality of Alcohol and Drug Abuse Patient Records regulations: The Federal rules restrict any use of the information to criminally investigate or prosecute any alcohol or drug abuse patient.[facility] Center[facility] the event this information is protected by the Federal Confidentiality of Alcohol and Drug Abuse Patient Records regulations: The Federal rules restrict any use of the information to criminally investigate or prosecute any alcohol or drug abuse patient.[facility] Center[facility] the event this information is protected by the Federal Confidentiality of Alcohol and Drug Abuse Patient Records regulations: The Federal rules restrict any use of the information to criminally investigate or prosecute any alcohol or drug abuse patient.[facility] Center[facility] the event this information is protected by the Federal Confidentiality of Alcohol and Drug Abuse Patient Records regulations: The Federal rules restrict any use of the information to criminally investigate or prosecute any alcohol or drug abuse patient.[facility] Center[facility] the event this information is protected by the Federal Confidentiality of Alcohol and Drug Abuse Patient Records regulations: The Federal rules restrict any use of the information to criminally investigate or prosecute any alcohol or drug abuse patient.[facility] Center[facility] the event this information is protected by the Federal Confidentiality of Alcohol and Drug Abuse Patient Records regulations: The Federal rules restrict any use of the information to criminally investigate or prosecute any alcohol or drug abuse patient.[facility] Center[facility] the event this information is protected by the Federal Confidentiality of Alcohol and Drug Abuse Patient Records regulations: The Federal rules restrict any use of the information to criminally investigate or prosecute any alcohol or drug abuse patient.[facility] CenterIn the event this information is protected by the Federal Confidentiality of Alcohol and Drug Abuse Patient Records regulations: The Federal rules restrict any use of the information to criminally investigate or prosecute any alcohol or drug abuse patient.[facility] CenterIn the event this information is protected by the Federal Confidentiality of Alcohol and Drug Abuse Patient Records regulations: The Federal rules restrict any use of the information to criminally investigate or prosecute any alcohol or drug abuse patient.[facility] CenterIn the event this information is protected by the Federal Confidentiality of Alcohol and Drug Abuse Patient Records regulations: The Federal rules restrict any use of the information to criminally investigate or prosecute any alcohol or drug abuse patient.[facility] CenterIn the event this information is protected by the Federal Confidentiality of Alcohol and Drug Abuse Patient Records regulations: The Federal rules restrict any use of the information to criminally investigate or prosecute any alcohol or drug abuse patient.[facility] CenterIn the event this information is protected by the Federal Confidentiality of Alcohol and Drug Abuse Patient Records regulations: The Federal rules restrict any use of the information to criminally investigate or prosecute any alcohol or drug abuse patient.[facility] CenterIn the event this information is protected by the Federal Confidentiality of Alcohol and Drug Abuse Patient Records regulations: The Federal rules restrict any use of the information to criminally investigate or prosecute any alcohol or drug abuse patient.[facility] CenterIn the event this information is protected by the Federal Confidentiality of Alcohol and Drug Abuse Patient Records regulations: The Federal rules restrict any use of the information to criminally investigate or prosecute any alcohol or drug abuse patient.[facility] CenterIn the event this information is protected by the Federal Confidentiality of Alcohol and Drug Abuse Patient Records regulations: The Federal rules restrict any use of the information to criminally investigate or prosecute any alcohol or drug abuse patient.[facility] CenterIn the event this information is protected by the Federal Confidentiality of Alcohol and Drug Abuse Patient Records regulations: The Federal rules restrict any use of the information to criminally investigate or prosecute any alcohol or drug abuse patient.[facility] Reason for Visit (unrecogniz ed section and content) Reason Comments Consult Specialty Diagnoses / Procedures Referred By Contac t Referred To Contact [facility] Diagnoses Hernia Procedures Established patient office visit Kan Oliver MD [address] [place] [address] Phone: tel: fax: Kan Oliver MD [address] [place] [address] Phone: tel: fax: Referral ID Status Reason Start Date Expiration Date Visits Requested Visits Authorized [id number] Authorized Patient Cleared - Qualified 100% FAS 12/22/2024 03/22/2025 99 99 Reason Comments Follow Up CT results Specialty Diagnoses / Procedures Referred By Contac t Referred To Contact Diagnoses hernia Procedures New patient office visit Self [facility] [place] [address] Referral ID Status Reason Start Date Expiration Date Visits Requested Visits Authorized [id number] Authorized Patient Cleared - Qualified 100% FAS 08/13/2023 11/11/2023 99 99 Reason Comments Abdominal Bulge Specialty Diagnoses / Procedures Referred By Contac t Referred To Contact Diagnoses hernia Procedures New patient office visit Self [facility] [place] [address] Specialty Diagnoses / Procedures Referred By Agustin ramesh Referred To Contact CT IMAGING Diagnoses Incisional hernia, without obstruction or gangrene Procedures CT ABD/PEL WO IVCON CT ABD & PELVIS W/O CONTRAST Daniel Simon MD [address] [address] [place] [address] Referral ID Status Reason Start Date Expiration Date Visits Requested Visits Authorized [id number] Pending Review Auto-Generat ed Referral 09/13/2023 10/12/2024 [address] Reason Comments Appointment Reason Comments Patient Update Asking if we receive d the medical records from [facility] Specialty Diagnoses / Procedures Referred By Agustin ramesh Referred To Contact PLASTIC SURGERY Diagnoses cosmetic consult Procedures cosmetic consult Self [facility] [address] [place] [id number] Referral ID Status Reason Start Date Expiration Date Visits Requested Visits Authorized [id number] Authorized Financial Clearance Required - Self Pay OON/Self Pay Override Patient Cleared - Qualified 100% FAS 12/14/2023 2024 99 99 Reason Comments PHOTOS TAKEN Reason Comments Abdominal Pain Reason Comments clinic prep Reason Comments Follow Up DISCUSS SURGERY Specialty Diagnoses / Procedures Referred By Agustin ramesh Referred To Contact PLASTIC SURGERY Diagnoses cosmetic consult Procedures cosmetic consult [facility] [address] [place] [phone] Reason Comments Weight Management Reason Comments Patient Update Reason Comments Patient Question FOR RECORDS PERTAINING TO PATIENTS WHO ARE OR HAVE BEEN ENROLLED IN A CHEMICAL DEPENDENCY/SUBSTANCEABUSE PROGRAM, SOME INFORMATION MAY BE OMITTED. This clinical summary was aggregated from multiple sources. Caution should be exercised in using it in the provision of clinical care. This summary normalizes information from multiple sources, and as a consequence, information in this document may materially change the coding, format and clinical context of patient data. In addition, data may be omitted in some cases. CLINICAL DECISIONS SHOULD BE BASED ON THE PRIMARY CLINICAL RECORDS. [facility] [employer] [facility] provides no warranty or guarantee of the accuracy or completeness of information in this document.
[2025-06-07 02:40] LABS: Red Blood Cells-Urine 0-5 SEEN /hpf (0-5)
[2025-06-07 02:42] LABS: AST(SGOT) 23 U/L (<=31); Alanine Aminotransfer ALT/SGPT 35 U/L (<=34); Albumin, Serum 3.6 g/dL (3.5-5.0); Alkaline Phosphatase 74 U/L (35-104); Anion Gap 12 (7-18); BUN 7 mg/dL (4-19); BUN/Creat Ratio 12.1 RATIO (10-20); Calcium,Total 9.2 mg/dL (7.6-11.0); Carbon Dioxide 20.4 mmol/L (20.0-29.0); Chloride 103 mmol/L (96-106); Estimated Creatinine Clearance 204.04 ml/min (50-250); Globulin 3.0 g/dL (2.2-4.2); Glucose 131 mg/dL (70-99); Potassium 3.7 mmol/L (3.5-5.1)
[2025-06-07 03:09] VITALS: BP 143/84; PULSE 60; RESP 16; TEMP 36.7; O2SAT 98
--- NOTE | 2025-06-07 03:14 | EX.ED.DYSGE1 ---
HPI History of Present Illness Chief Complaint: Abd Pain Narrative Narrative: Patient was seen and examined after presenting to ED for abdominal pain had nausea and vomiting she has a history of an abdominal wall hernia she is also approximately 14 weeks she is currently in the process of getting established with a general surgeon through [facility] for her abdominal wall hernia. [facility] Medical History delivery delivered Morbid obesity due to excess calories Home Medications ?Medication ?Instructions ?Recorded ?Last Taken ?Type NK 06/07/25 Unknown History Allergy/AdvReac Type Severity Reaction Status Date / Time No Known Allergies Allergy Verified 06/07/25 01:56 Surgical History H/O hernia repair Social History household members: spouse and children Smoking Status: Never smoker substance use type: does not use ROS ROS ED ROS Narrative Pertinent Positives: Nausea vomiting abdominal pain Pertinent Negatives: Fevers chills diarrhea black or bloody stools urinary symptoms vaginal bleeding or discharge The remainder of review of systems negative unless otherwise stated in the HPI above. Systems reviewed including constitutional, psychiatric, cardiovascular, respiratory, integument, HENT, gastrointestinal. EXAM Physical Exam Narrative Exam Narrative: Afebrile hemodynamically stable does not appear toxic or in distress oxygenating well on room air her abdomen is soft nondistended she did have some tenderness overlying in the central abdominal wall hernia I was able to easily reduce that she had no overlying skin changes such as erythema or vesicular lesions or other skin discoloration or crepitus her skin is warm and well-perfused. She is able to get up and go to the bathroom and return without it being painful she had a reduction in her pain after I was able to reduce it successfully Const Vital Signs: 06/07/25 01:48 06/07/25 03:09 Temperature 98.5 F 98.1 F Temperature Source Oral Pulse Rate 65 60 Respiratory Rate 16 16 Blood Pressure 135/93 H 143/84 H Blood Pressure Mean 107 103 Pulse Ox 98 98 Oxygen Delivery Method Room Air MDM MDM MDM Narrative Medical decision making narrative: Nursing notes, triage notes, available previous documentation, and vital signs were reviewed. Any discrepancies noted were addressed. Differential Diagnoses: Abdominal wall hernia this is not incarcerated is not strangulated low suspicion for appendicitis or cholecystitis or pancreatitis or diverticular disease does not seem to be related to her Interventions: Successful reduction of ventral abdominal wall hernia Labs Reviewed: Slight leukocytosis which can be seen given her vomiting and the pain no anemia or thrombocytopenia no electrolyte abnormality or renal insufficiency or transaminitis urine without evidence of infection Imaging Reviewed: Hernia was successfully reduced imaging not indicated Previous Documentation Reviewed: None available or applicable at this time. ED Course: Patient presenting with nausea vomiting and abdominal pain from the ventral hernia in her abdominal wall I was able to successfully reduce it without any medications I will believe any imaging is necessary at this point time she is able to get up and ambulate use the bathroom no further issues I did not feel the abdominal wall hernia again at that point when I reevaluated her she is comfortable with going home they state that they are getting established with a general surgeon through the [facility] return precautions follow-up recommendations provided she is stable for discharge home. This note was made utilizing voice recognition software. All attempts were made to correct spelling or other errors prior to note completion. However, due to the fast-paced nature of emergency medicine, some errors may still be present. Lab Data Labs: Laboratory Results - last 24 hr 06/07/25 01:58 WBC 13.7 H RBC 4.70 Hgb 13.3 Hct 38.7 MCV 82.3 MCH 28.3 MCHC 34.4 RDW Std Deviation 40.7 RDW Coeff of Ankita 13.7 Plt Count 252 MPV 9.8 Immature Gran % (Auto) 0.300 Neut % (Auto) 84.0 H Lymph % (Auto) 11.9 L Person % (Auto) 3.5 Eos % (Auto) 0.1 Baso % (Auto) 0.2 Absolute Neuts (auto) 11.5 H Absolute Lymphs (auto) 1.63 Nucleated RBC % 0 Sodium 136 Potassium 3.7 Chloride 103 Carbon Dioxide 20.4 Anion Gap 12 BUN 7 Creatinine 0.54 L Estim Creat Clear Calc 204.04 Est GFR (MDRD) Non-Af 122 BUN/Creatinine Ratio 12.1 Glucose 131 H Calcium 9.2 Total Bilirubin 0.33 AST 23 ALT 35 Alkaline Phosphatase 74 Total Protein 6.6 Albumin 3.6 Globulin 3.0 Albumin/Globulin Ratio 1.2 Urine Color Yellow Urine Clarity Sl. Cloudy Urine pH 7.0 Ur Specific [place] 1.010 Urine Protein 15 H Urine Glucose (UA) Normal Urine Ketones 5 H Urine Occult Blood Negative Urine Nitrite Negative Urine Bilirubin Negative Urine Urobilinogen Normal Ur Leukocyte Esterase Negative Urine RBC 0-5 SEEN Urine WBC 0-5 SEEN Ur Squamous Epith Cells 0 SEEN Urine Bacteria 1+ Urine Mucus 0 SEEN Discharge Plan Triage Chief Complaint: Abd Pain ED Provider: Julius López Dx/Rx/DC Orders Clinical Impression: Abdominal wall hernia, Nausea & vomiting, Abdominal pain Instructions: ED Hernia (Adult) Prescriptions: No Action NK Primary Care Provider: Marita Foster NP Referrals: Gelacio Diamond MD [Med Staff - Active Staff, General Surgery] - As soon as possible Marita Foster NP, RN PATIENT SERVICES-C [Primary Care Provider, Internal Medicine] Activity Restrictions/Additional Instructions: If you are having significant belly pain or persistent vomiting or unable to poop you need to return to the hospital immediately otherwise follow-up with your medical care team. Print Language: Thai Disposition Disposition: Home, Self Care
== END 2025-06-07 03:21 | disposition home or self-care (01) ==
PROVIDERS: Emergency Provider Specialist/Technologist Athletic Trainer; PCP Nurse Practitioner Family; Visit Provider Specialist/Technologist Athletic Trainer
DX: O99.891 Other specified diseases and conditions complicating pregnancy (principal); R10.9 Unspecified abdominal pain; K43.9 Ventral hernia without obstruction or gangrene; Z3A.14 14 weeks gestation of pregnancy; O21.9 Vomiting of pregnancy, unspecified; O99.612 Diseases of the digestive system complicating pregnancy, second trimester
CPT/HCPCS: 80053; 81001; 85025; 99284; A4216